=== PATIENT | male | born 1955 | race Hispanic/Latino ===

== ENCOUNTER 2019-12-03 10:43 | Emergency (ER) | payer OTHER ==
--- OUTSIDE RECORDS SUMMARY | 2019-12-03 10:46 | XMS REPORT ---
:1955 Author Organization [facility] Address [address] [place] [address] [address] [place] [address] Care Team Providers Name Role Phone Unavailable Unavailable Unavailable Problems This patient has no known problems. Allergies, Adverse Reactions, Alerts This patient has no known allergies or adverse reactions. Medications This patient has no known medications.
--- OUTSIDE RECORDS SUMMARY | 2019-12-03 10:46 | XMS REPORT ---
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
--- OUTSIDE RECORDS SUMMARY | 2019-12-03 10:46 | XMS REPORT | Summary of Care ---
:1955 Author Organization [facility] - Health Address [address] [place] [address] Care Team Providers Name Role Phone Estephania Low MD Primary Care Provider Encounter Details Date Type Department Care Team Description 10/21/2019 Orders Only [facility] Doctor Unassigned, No [address] [facility] [place] [address] [address] [place] [address] Allergies Active Allergy Reactions Severity Noted Date Comments Shrimp Hives 01/27/2017 documented as of this encounter (statuses as of 10/21/2019) Medications Medication Sig Dispensed Refills Start Date End Date Status ondansetron (ZOFRAN) 8 Take 1 tablet by 20 tablet 0 11/04/2018 Active mg tabletIndications: mouth every 8 Abdominal pain, RUQ (eight) hours as needed for Nausea and Vomiting (N/V). dicyclomine (BENTYL) Take 1 tablet by 20 tablet 0 11/04/2018 Active 20 mg mouth 4 (four) tabletIndications: times daily. Abdominal pain, RUQ enalapril 10 mg Take 1 tablet by 30 tablet 2 11/05/2018 Active tabletIndications: mouth daily. Routine adult health maintenance esomeprazole (NEXIUM) Take 20 mg by 30 capsule 0 11/05/2018 Active 20 mg mouth daily capsuleIndications: before a meal. Abdominal pain, RUQ omeprazole 20 mg Take 1 capsule by 28 capsule 0 11/25/2018 Active capsuleIndications: H. mouth 2 (two) pylori infection times daily. metroNIDAZOLE 500 mg Take 1 tablet by 28 tablet 0 11/25/2018 Active tabletIndications: H. mouth every 8 pylori infection (eight) hours. amoxicillin 500 mg Take 2 capsules 56 capsule 0 11/25/2018 Active capsuleIndications: H. by mouth 2 (two) pylori infection times daily. tamsulosin 0.4 mg 24 Take 1 capsule by 30 capsule 5 11/25/2018 Active hr capsuleIndications: mouth daily. H. pylori infection documented as of this encounter (statuses as of 10/21/2019) Active Problems Problem Noted Date H. pylori infection 11/25/2018 Abdominal pain 11/04/2018 Essential hypertension 02/13/2017 documented as of this encounter (statuses as of 10/21/2019) Resolved Problems Problem Noted Date Resolved Date Acute cholecystitis 01/27/2017 02/13/2017 documented as of this encounter (statuses as of 10/21/2019) Social History Tobacco Use Types Packs/Day Years Used Date Current Every Day Smoker Smokeless Tobacco: Never Used Alcohol Use Drinks/Week oz/Week Comments No Sex Assigned at Date Recorded Not on file Job Start Date Occupation Industry Not on file Not on file Not on file Travel History Travel Start Travel End No recent travel history available. documented as of this encounter Last Filed Vital Signs Not on filedocumented in this encounter Plan of Treatment Health Maintenance Due Date Last Done Comments HEPATITIS C (HCV) SCREEN 1955 DTaP,Tdap,and Td Vaccines (1 - Tdap) 1972 COLONOSCOPY 2003 Zoster Recombinant Vaccine (SHINGRIX) (1 of 2) 2003 LUNG CANCER SCREEN: Recommended for age 55-80 with 30 + 2008 pack year history Medicare Wellness Visit 2018 PNEUMOCOCCAL VACCINES 65+ (1 of 2 - PCV13) 2018 INFLUENZA VACCINE (#1) 2019 documented as of this encounter Goals Goal Patient Goal Associated Recent Patient-Stated? 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 [place] [id number] [place] [id number] documented as of this encounter
--- OUTSIDE RECORDS SUMMARY | 2019-12-03 10:46 | XMS REPORT | Summary of Care ---
:1955 Author Organization [facility] - Health Address [address] [place] [id number] Care Team Providers Name Role Phone Estephania Low MD Primary Care Provider Encounter Details Date Type Department Care Team Description 10/23/2019 Orders Only [facility] Doctor Unassigned, No [address] [facility] Name [place] [phone] [place] [address] Allergies Active Allergy Reactions Severity Noted Date Comments Morphine Hives 10/21/2019 Shrimp Hives 01/27/2017 documented as of this encounter (statuses as of 10/23/2019) Medications Medication Sig Dispensed Refills Start Date [...] as of this encounter (statuses as of 10/23/2019) Active Problems Problem Noted Date H. pylori infection 11/25/2018 Abdominal pain 11/04/2018 Essential hypertension 02/13/2017 documented as of this encounter (statuses as of 10/23/2019) Resolved Problems Problem Noted Date Resolved Date Acute cholecystitis 01/27/2017 02/13/2017 documented as of this encounter (statuses as of 10/23/2019) Social History Tobacco Use Types Packs/Day Years [...] filedocumented in this encounter Plan of Treatment Date Type Specialty Care Team Description 10/23/2019 Office Visit Family Medicine Antonio Bustamante MD [address] [place] [address] [address] [place], [place] [id number] Health Maintenance Due Date Last Done Comments HEPATITIS C (HCV) SCREEN 1955 DTaP,Tdap,and Td Vaccines (1 - Tdap) 1964 COLONOSCOPY 2003 Zoster Recombinant Vaccine (SHINGRIX) (1 [...] Procedure Name Priority Date/Time Associated Diagnosis Comments NO SHOW OR MISSED Routine 10/23/2019 2:13 PM 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 Medicare A [employer] nt [id number] [place] [id number] documented as of this encounter
--- OUTSIDE RECORDS SUMMARY | 2019-12-03 10:46 | XMS REPORT ---
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
--- OUTSIDE RECORDS SUMMARY | 2019-12-03 10:46 | XMS REPORT | Summary of Care ---
:1955 Author Organization [facility] - [facility] Address [address] [place] [address] Care Team Providers Name Role Phone Estephania Low MD Primary Care Provider Reason for Referral MRI/CAT Scan (STAT) Status Reason Specialty Diagnoses / Referred By Referred To Procedures Contact Contact New Request Diagnostic Diagnoses Abdominal pain, unspecified abdominal location Jaswinder Echevarria, Radiology Procedures CT ABDOMEN PELVIS W CONTRAST CT ABDOMEN PELVIS W WO CONTRAST [address] [place] [address] [place] [id number] Reason for Visit Reason Comments Abdominal Pain Auth/Cert Status Reason Specialty Diagnoses / Referred By Referred To Procedures Contact Contact [facility] [address] [place] [address] [place] [address] Encounter Details Date Type Department Care Team Description 10/21/2019 Emergency [facility] Jaswinder Echevarria MD Abdominal pain, unspecified abdominal location (Primary Dx); Department [address] [place] [address] Mesenteric ischemia [address] [place] [address] [address] [place] [address] [place], [place] [id number] Allergies Active Allergy Reactions Severity Noted Date [...] of this encounter Last Filed Vital Signs Vital Sign Reading Time Taken Comments Blood Pressure 161/94 10/21/2019 10:27 AM FEEDER DRIVER Pulse 57 10/21/2019 10:27 AM FEEDER DRIVER Temperature 36.8 C (98.2 F) 10/21/2019 8:06 AM FEEDER DRIVER Respiratory Rate 15 10/21/2019 10:27 AM FEEDER DRIVER Oxygen Saturation 99% 10/21/2019 10:27 AM FEEDER DRIVER Inhaled Oxygen Concentration - - Weight 63.5 kg (140 lb) 10/21/2019 8:06 AM FEEDER DRIVER Height 157.5 cm (5' 2") 10/21/2019 8:06 AM FEEDER DRIVER Body Mass Index 25.61 10/21/2019 8:06 AM FEEDER DRIVER documented in this encounter Plan of Treatment Health [...] encounter Procedures Procedure Name Priority Date/Time Associated Comments Diagnosis CT ABDOMEN PELVIS W STAT 10/21/2019 9:18 Abdominal pain, Results for this CONTRAST AM FEEDER DRIVER unspecified procedure are in abdominal location the results section. ACTIVATED PARTIAL STAT 10/21/2019 8:43 Abdominal pain, Results for this THRMPLAS SABINA AM FEEDER DRIVER unspecified procedure are in abdominal location the results section. PROTHROMBIN TIME / STAT 10/21/2019 8:43 Abdominal pain, Results for this INR AM FEEDER DRIVER unspecified procedure are in abdominal location the results section. EKG-12 LEAD Routine 10/21/2019 8:32 AM FEEDER DRIVER CBC WITH STAT 10/21/2019 8:21 Abdominal pain, Results for this DIFFERENTIAL AM FEEDER DRIVER unspecified procedure are in abdominal location the results section. N-TERMINAL PRO-BNP STAT Add-On 10/21/2019 8:21 Abdominal pain, Results for this AM FEEDER DRIVER unspecified procedure are in abdominal location the results section. URINALYSIS STAT 10/21/2019 8:21 Abdominal pain, Results for this AM FEEDER DRIVER unspecified procedure are in abdominal location the results section. CBC WITH Routine 10/21/2019 8:21 Abdominal pain, Results for this DIFFERENTIAL AM FEEDER DRIVER unspecified procedure are in abdominal location the results section. COMP. METABOLIC STAT 10/21/2019 8:21 Abdominal pain, Results for this PANEL (13238) AM FEEDER DRIVER unspecified procedure are in abdominal location the results section. TROPONIN I STAT Add-On 10/21/2019 8:21 Abdominal pain, Results for this AM FEEDER DRIVER unspecified procedure are in abdominal location the results section. LIPASE STAT 10/21/2019 8:21 Abdominal pain, Results for this AM FEEDER DRIVER unspecified procedure are in abdominal location the results section. NOTICE OF PRIVACY Routine 10/21/2019 7:51 PRACTICES AM FEEDER DRIVER documented in this encounter Results CT ABDOMEN PELVIS W CONTRAST (10/21/2019 9:18 AM FEEDER DRIVER) Specimen Narrative Performed At CT Abdomen and Pelvis with intravenous contrast. PACS/VR/DOSE CLINICAL HISTORY: Abdominal infection, including peritonitis. DOSE: Up-to-date CT equipment and radiation dose reduction techniques were employed. CTDIvol: 4.14 mGy. DLP: 195 mGy-cm. TECHNIQUE : Contiguous axial imaging from the level of the lung bases through the pubic symphysis were performed after the uncomplicated administration of Omnipaque contrast material. Coronal and sagittal reconstructions were obtained. Auto mA and/or iterative reconstruction were used to reduce radiation dose. FINDINGS: Comparison is made with previous CT scan of 11/04/2018. Lower lungs: Chronic bibasilar pleural thickening and minimal dependent lung atelectatic changes. Possible small sliding-type hiatal hernia noted. Liver, Gallbladder and Spleen: Liver is 17.6 cm in length and showed known 2 cystic lesions, and one in the left lobe and one in the right lobe, unchanged. Cholecystectomy noted. Spleen measures approximately 11.5 x 5.8 cm and adjacent to the anterior edge of the spleen, there is an accessory 13 mm splenule. Mild generalized dilatation of the extrahepatic biliary ducts noted along with a long cystic duct remnant. Common hepatic duct is 8 to 9 mm in diameter. There is minimal dilatation of the main pancreatic duct. Peritoneum: No free air or free fluid. No lymphadenopathy. Pancreas and Adrenals: A tiny 5 mm cystic lesion is seen in the anterior surface of the proximal body region of the pancreas, very faintly visualized in retrospect in the previous study, unchanged. No enhancing lesions in the pancreas. Normal adrenal glands. Kidneys and Ureters: No visible calculi in the renal collecting systems. No hydroureter or hydronephrosis. Vessels: Atherosclerosis. No abdominal aortic aneurysm. Long stricture is seen in the proximal SMA, with estimated severity of the percent, unchanged. Retroperitoneum: No abnormal fluid or lymphadenopathy. Bowel: No acute findings. Normal appendix is visualized. Bladder and Reproductive Organs: No gross pathology in the unopacified urinary bladder except for mild thickening of the bladder zavala which could be due to combination of incomplete luminal distention and moderately enlarged prostate gland. Bones: No aggressive bone lesions. No compression deformity in the lumbar vertebral bodies. No signs of AVN in the femoral heads. Soft tissues: Small direct type fat containing bilateral inguinal hernia suspected. CONCLUSION: 1. No acute intra-abdominal or pelvic abnormalities detected. 2. S/P cholecystectomy. 3. Moderate atherosclerosis of the aorta and iliac arteries with approximately 50% stricture of the lower abdominal aorta just above the bifurcation, long 50-60% stricture in the proximal SMA, unchanged when compared with October 2018 study. 4. Cystic lesions, one in the left lobe and one in the right lobe of the liver, unchanged. Procedure Note [facility], Radiant Results Inft User - 10/21/2019 9:[address] Abdomen and Pelvis with intravenous contrast. CLINICAL HISTORY: Abdominal infection, including peritonitis. DOSE: Up-to-date CT equipment and radiation dose reduction techniques were employed. CTDIvol: 4.14 mGy. DLP: 195 mGy-cm. TECHNIQUE : Contiguous axial imaging from the level of the lung bases through the pubic symphysis were performed after the uncomplicated administration of Omnipaque contrast material. Coronal and sagittal reconstructions were obtained. Auto mA and/or iterative reconstruction were used to reduce radiation dose. FINDINGS: Comparison is made with previous CT scan of 11/04/2018. Lower lungs: Chronic bibasilar pleural thickening and minimal dependent lung atelectatic changes. Possible small sliding-type hiatal hernia noted. Liver, Gallbladder and Spleen: Liver is 17.6 cm in length and showed known 2 cystic lesions, and one in the left lobe and one in the right lobe, unchanged. Cholecystectomy noted. Spleen measures approximately 11.5 x 5.8 cm and adjacent to the anterior edge of the spleen, there is an accessory 13 mm splenule. Mild generalized dilatation of the extrahepatic biliary ducts noted along with a long cystic duct remnant. Common hepatic duct is 8 to 9 mm in diameter. There is minimal dilatation of the main pancreatic duct. Peritoneum: No free air or free fluid. No lymphadenopathy. Pancreas and Adrenals: A tiny 5 mm cystic lesion is seen in the anterior surface of the proximal body region of the pancreas, very faintly visualized in retrospect in the previous study, unchanged. No enhancing lesions in the pancreas. Normal adrenal glands. Kidneys and Ureters: No visible calculi in the renal collecting systems. No hydroureter or hydronephrosis. Vessels: Atherosclerosis. No abdominal aortic aneurysm. Long stricture is seen in the proximal SMA, with estimated severity of the percent, unchanged. Retroperitoneum: No abnormal fluid or lymphadenopathy. Bowel: No acute findings. Normal appendix is visualized. Bladder and Reproductive Organs: No gross pathology in the unopacified urinary bladder except for mild thickening of the bladder zavala which could be due to combination of incomplete luminal distention and moderately enlarged prostate gland. Bones: No aggressive bone lesions. No compression deformity in the lumbar vertebral bodies. No signs of AVN in the femoral heads. Soft tissues: Small direct type fat containing bilateral inguinal hernia suspected. CONCLUSION: 1. No acute intra-abdominal or pelvic abnormalities detected. 2. S/P cholecystectomy. 3. Moderate atherosclerosis of the aorta and iliac arteries with approximately 50% stricture of the lower abdominal aorta just above the bifurcation, long 50-60% stricture in the proximal SMA, unchanged when compared with October 2018 study. 4. Cystic lesions, one in the left lobe and one in the right lobe of the liver, unchanged. Performing Organization Address [facility]/Zipcode Phone Number PACS/VR/DOSE Prothrombin Time (PT) / INR (10/21/2019 8:43 AM FEEDER DRIVER) PROTIME PATIENT 13.6 12.0 - 14.7 [facility] LABORATORY INR 1.1Comment: Normal [facility] INR <1.1; Warfarin HOSPITAL Therapeutic range LABORATORY 2.0 to 3.0 or 2.5 to 3.5, depending upon the indications. Specimen Blood - VENOUS Performing Organization Address [facility]/Zipcode Phone Number [facility] CLIA: [id number], [address] [place] [address] aPTT (10/21/2019 8:43 AM FEEDER DRIVER) APTT Patient 30 23 - 38 Seconds [facility] LABORATORY Specimen Blood - VENOUS Narrative Performed At The [facility] patient population mean normal value [facility] LABORATORY for aPTT is 30 seconds. Performing Organization Address City/[facility] Phone Number [facility] CLIA: [id number], [address] [place] [address] N-TERMINAL PRO-BNP (10/21/2019 8:21 AM FEEDER DRIVER) NT-proBNP 52 <=125 pg/mL [facility] LABORATORY Specimen Blood - VENOUS Narrative Performed At Biotin has been reported to cause a negative [facility] LABORATORY bias, interpret results relative to patient's use of biotin. Performing Organization Address [facility] Phone Number [facility] CLIA: [id number], [address] [place] [address] Troponin I (10/21/2019 8:21 AM FEEDER DRIVER) [facility] TROPONIN I <0.012 <=0.034 ng/mL [facility] LABORATORY Specimen Blood - VENOUS Narrative Performed At Equal or Less than 0.034 ng/ml---Normal [facility] LAB[facility] Note: Cardiac troponin begins to rise 3-4 hours after the onset of ischemia. Repeat in 4-6 hours if the sample was drawn within 3-4 hours of the onset of the symptom and found normal. Between 0.035 and 0.120 ng/mL--- Borderline. Questionable myocardial injury or necrosis Note: Serial measurement may be necessary to confirm or exclude the diagnosis of myocardial injury or necrosis; Clinical correlation (symptoms, EKGs, imaging studies, and others) required; Repeat in 4-6 hours if clinically indicated. Equal or Higher than 0.121 ng/mL---Abnormal. Myocardial Injury or Necrosis Likely Biotin has been reported to cause a negative bias, interpret results relative to patient's use of biotin. Performing Organization Address [facility] Centercode Phone Number [facility] CLIA: [id number], [address] [place] [address] CBC WITH DIFFERENTIAL (10/21/2019 8:21 AM FEEDER DRIVER) WBC 7.04 4.20 - 10.70 [facility] 10*3/L [facility] LABORATORY RBC 5.27 4.26 - 5.52 [facility] 10*6/L HOSPITAL LABORATORY HGB 15.7 12.2 - 16.4 g/dL [facility] LABORAT[facility] HCT 47.6 38.4 - 49.3 % [facility] LABOR[facility] MCV 90.3 81.7 - 95.6 fL [facility] LABORATORY MCH 29.8 26.1 - 32.7 pg [facility] LAB[facility]ORY MCHC 33.0 31.2 - 35.0 g/dL [facility] LABORATORY RDW-SD 42.3 38.5 - 51.6 fL [facility] LABOR[facility] RDW-CV 12.9 12.1 - 15.4 % [facility] LABOR[facility] PLT 221 150 - 328 [facility] 10*3/L [facility] LABORATORY MPV 10.3 9.8 - 13.0 fL [facility] LABOR[facility] NRBC/100 WBC 0.0 0.0 - 10.0 /100 [facility] WBCs [facility] LABORATORY NRBC x10^3 <0.01 10*3/L [facility] LABORATORY GRAN MAT (NEUT) % 69.2 % [facility] LAB[facility] IMM GRAN % 0.30 % [facility] LAB[facility] LYMPH % 17.0 % [facility] MONO % 7.1 % [facility] EOS % 5.5 % [facility] BASO % 0.9 % [facility] LABOR[facility] GRAN MAT x10^3(ANC) 4.87 1.99 - 6.95 [facility] 10*3/uL [facility] LABORATORY IMM GRAN x10^3 <0.03 0.00 - 0.06 [facility] 10*3/uL HOSPITAL LABORATORY LYMPH x10^3 1.20 1.09 - 3.23 [facility] 10*3/uL HOSPITAL LABORATORY MONO x10^3 0.50 0.36 - 1.02 [facility] 10*3/uL HOSPITAL LABORATORY EOS x10^3 0.39 0.06 - 0.53 [facility] 10*3/uL HOSPITAL LABORATORY BASO x10^3 0.06 0.01 - 0.09 [facility] 10*3/uL [facility] LABORATORY Specimen Blood - VENOUS Performing Organization Address City/State/Zipcode Phone Number [facility] CLIA: [id number], [address] [place] [address] Urinalysis (10/21/2019 8:21 AM FEEDER DRIVER) APPEARANCE Clear Clear [facility] LABORAT[facility] COLOR Yellow Yellow [facility] PH 6.0 4.8 - 8.0 [facility] SP GRAVITY 1.020 1.003 - 1.030 [facility] LAB[facility] GLU U QUAL Normal Normal [facility] BLOOD Negative Negative [facility] KETONES Negative Negative [facility] PROTEIN Negative Negative [facility] UROBILIN Normal Normal [facility] BILIRUBIN Negative Negative [facility] NITRITE Negative Negative [facility] LEUK RIMA Negative Negative [facility] RBC/HPF 3 0 - 3 HPF [facility] WBC/HPF 3 0 - 5 HPF [facility] BACTERIA Negative Negative [facility] MUCOUS Slight (A) Negative LPF [facility] LABOR[facility] Specimen Urine - URINE, CLEAN CATCH Performing Organization Address City/[facility]/Zipcode Phone Number [facility] CLIA: [id number], [address] [place] [address] [address] Lipase, Serum (10/21/2019 8:21 AM FEEDER DRIVER) LIPASE 491 (H) 0 - 220 U/L [facility] LABORATORY Specimen Blood - VENOUS Performing Organization Address City/[facility]/Zipcode Phone Number [facility] CLIA: [id number], [address] [place] [address] Complete Metabolic Panel (10/21/2019 8:21 AM FEEDER DRIVER) NA 141 135 - 145 mmol/L [facility] K 3.9 3.5 - 5.0 mmol/L [facility] CL 106 98 - 108 mmol/L [facility] CO2 TOTAL 28 23 - 31 mmol/L [facility] AGAP 7 2 - 16 [facility] BUN 19 7 - 23 mg/dL [facility] GLUCOSE 98 70 - 110 mg/dL [facility] CREATININE 0.83 0.60 - 1.25 [facility] mg/dL [facility] LAB[facility] TOTAL BILI 0.7 0.1 - 1.1 mg/dL [facility] CALCIUM 9.1 8.6 - 10.6 mg/dL [facility] T PROTEIN 6.9 6.3 - 8.2 g/dL [facility] ALBUMIN 4.3 3.5 - 5.0 g/dL [facility] ALK PHOS 67 34 - 122 U/L [facility] ALTv 21 5 - 50 U/L [facility] AST(SGOT) 26 13 - 40 U/L [facility] LAB[facility] eGFR Calculation 92.7 mL/min/1.73m2 [facility] (Non-[facility]) [facility] LABOR[facility] eGFR Calculation 112.3 mL/min/1.73m2 [facility] () [facility] LABOR[facility] Specimen Blood - VENOUS Narrative Performed At Association of Glomerular Filtration Rate (GFR) [facility] LAB[facility] and Staging of Kidney Disease* + + +- + | GFR (mL/min/1.73 m2) | With Kidney Damage | Without Kidney Damage + + +- + | >90 | Stage one | Normal + + +- + | 60-89 | Stage two | Decreased GFR + + +- + | 30-59 | Stage three | Stage three + + +- + | 15-29 | Stage four | Stage four + + +- + | <15 (or dialysis) | Stage five | Stage five + + +- + *Each stage assumes the associated GFR level has been in effect for at least three months. Stages 1 to 5, with or without kidney disease, indicate chronic kidney disease. Notes: Determination of stages one and two (with eGFR >59mL/min/1.73 m2) requires estimation of kidney damage for at least three months as defined by structural or functional abnormalities of the kidney, manifested by either: Pathological abnormalities or Markers of kidney damage (including abnormalities in the composition of the blood or urine or abnormalities in imaging tests). Performing Organization Address City/State/Zipcode Phone Number [facility] CLIA: [id number], [address] [place] [address] documented in this encounter Visit Diagnoses Diagnosis Abdominal pain, unspecified abdominal location - Primary Mesenteric ischemia Unspecified vascular insufficiency of intestine documented in this encounter Administered Medications Medication Order MAR Action Action Date Dose Rate Site FENTanyl PF (SUBLIMAZE (PF)) Given 10/21/2019 10:48 AM FEEDER DRIVER 75 mcg injection 75 mcg 75 mcg, Slow IV Push, ONCE, 1 dose, 10/21/19 at 1145, STAT iohexol (OMNIPAQUE 350 BULK-150 mL) Given 10/21/2019 9:15 AM FEEDER DRIVER 120 mL injection 120 mL 120 mL, Intravenous, ONCE, 1 dose, Sat10/21/19 at 0930, Routine ketorolac (TORADOL) injection 15 mg Given 10/21/2019 8:47 AM FEEDER DRIVER 15 mg 15 mg, Slow IV Push, ONCE, 1 dose, Sat10/21/19 at 0945, ROSELIA, [employer] member other ranks approving Restricted medication: JASWINDER ECHEVARRIA ondansetron (ZOFRAN (PF)) injection 4 mg Given 10/21/2019 8:47 AM FEEDER DRIVER 4 mg 4 mg, Slow IV Push, ONCE, 1 dose, Sat10/21/19 at 0945, ROSELIA ondansetron (ZOFRAN (PF)) injection 4 mg Given 10/21/2019 10:49 AM FEEDER DRIVER 4 mg 4 mg, Slow IV Push, ONCE, 1 dose, Sat10/21/19 at 1145, ROSELIA documented in this encounter Insurance Payer Benefit Plan / Subscriber ID Effective Dates Phone Address Type Group MEDICARE MEDICARE PART xxxxxxxxxxx 2018-Vahid [phone] [facility] Medicare A & B [id number] [place] [id number] (Work) documented as of this encounter
--- OUTSIDE RECORDS SUMMARY | 2019-12-03 10:46 | XMS REPORT ---
:1955 Author Organization [employer] Care Team Providers Name Role Phone Kirill Liriano Provider Role Unavailable Allergies, Adverse Reactions, Alerts Substance Reaction Event Type N.K.D.A. 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 Medications Medication Code Code Instructions Start End Status Dosage System Date Date Montelukast [facility] 27157724814 10 MG Orally Jun 26, Active 1 tablet Sodium Once a day 2018 Azelastine HCl [facility] [id number] 137 MCG/SPRAY Jun 26, Active 1 puff in Nasally Twice a 2018 each day nostril Celexa [facility] 95706166924 20 MG Orally Active 1 tablet Once a day Amoxicillin-Pot [facility] [id number] 875-125 MG Oct 02, Oct 12, Active 1 tablet Clavulanate Orally every 12 2019 2019 hrs Omeprazole [facility] 49314115632 10 MG Orally Active 1 capsule Once a day Oseltamivir [facility] 38237834562 75 MG Orally Oct 02, Active 1 capsule Phosphate Twice a day 2019 Results Name Result Date Reference Range Unit Abnormality Flag STREP A RAPID ----Result Negative 20191002 FLU TEST A/B ----B NEG 20191002 ----A neg 20191002 Summary Purpose [employer]Clinical[employer] Submission
--- OUTSIDE RECORDS SUMMARY | 2019-12-03 10:47 | XMS REPORT | Summary of Care ---
:1955 Author Organization [facility] - [facility] Address [address] [place] [address] Care Team Providers Name Role Phone Estephania Low MD Primary Care Provider Reason for Visit Reason Comments New Patient HERNIA (Routine) Status Reason Specialty Diagnoses / Referred By Referred To Procedures Contact Contact Authorized Referring BJ-SURGERY / Diagnoses Right upper quadrant abdominal pain Right lower quadrant pain Right inguinal hernia Ravi Bustamante, Provider Surgery Procedures CONSULT/REFERRAL GENERAL SURGERY MD Amrita Alvarez MD Request [address] [address] [address] [address] Phone: Fax: Encounter Details Date Type Department Care Team Description 10/27/2019 Office Visit [facility] Surgical Amrita Rodrigues, Esophagitis (Primary Specialties - Elda OROSCO Dx) [facility], [address] [place] [address] [place] [address] [address] [place] [address] [phone] Allergies Active Allergy Reactions Severity Noted Date Comments Morphine Hives 10/21/2019 Shrimp Hives 01/27/2017 documented as of this encounter (statuses as of 10/27/2019) Medications Medication Sig Dispensed Refills Start Date [...] hr capsuleIndications: mouth daily. H. pylori infection cilostazoL 50 mg Take 1 tablet by 60 tablet 2 10/23/2019 Active tabletIndications: mouth 2 (two) Vascular claudication times daily. docusate 100 mg Take 1 capsule by 60 capsule 2 10/23/2019 Active capsuleIndications: mouth 2 (two) Constipation, times daily as unspecified needed for constipation type Constipation. sennosides 8.6 mg Take 1 tablet by 30 tablet 2 10/23/2019 Active tabletIndications: mouth daily. Constipation, unspecified constipation type meperidine 50 mg Take 1 tablet by 60 tablet 0 10/23/2019 Active tabletIndications: mouth every 6 Right upper quadrant (six) hours as abdominal pain, Right needed for Pain lower quadrant pain, (scale 7-10) Right inguinal hernia (Abdominal Pain). atorvastatin 10 mg Take 1 tablet by 30 tablet 2 10/23/2019 Active tabletIndications: mouth at bedtime. Vascular claudication pantoprazole 40 mg EC Take 1 tablet by 30 tablet 0 10/27/2019 Active tabletIndications: mouth daily. Esophagitis documented as of this encounter (statuses as of 10/27/2019) Active Problems Problem Noted Date H. pylori infection 11/25/2018 Abdominal pain 11/04/2018 Essential hypertension 02/13/2017 documented as of this encounter (statuses as of 10/27/2019) Resolved Problems Problem Noted Date Resolved Date Acute cholecystitis 01/27/2017 02/13/2017 documented as of this encounter (statuses as of 10/27/2019) Social History Tobacco Use Types Packs/Day Years [...] Sign Reading Time Taken Comments Blood Pressure 130/82 10/27/2019 3:19 PM CROP QUANTITATIVE GENETICIST Pulse 72 10/27/2019 3:19 PM CROP QUANTITATIVE GENETICIST Temperature 35.9 C (96.7 F) 10/27/2019 3:19 PM CROP QUANTITATIVE GENETICIST Respiratory Rate 18 10/27/2019 3:19 PM CROP QUANTITATIVE GENETICIST Oxygen Saturation - - Inhaled Oxygen Concentration - - Weight 66.6 kg (146 lb 12.8 oz) 10/27/2019 3:19 PM CROP QUANTITATIVE GENETICIST Height - - Body Mass Index 26.85 10/21/2019 8:06 AM CROP QUANTITATIVE GENETICIST documented in this encounter Progress Notes Roc Camarillo MD - 10/27/2019 3:15 PM CST GENERAL SURGERY CLINIC NOTE Date of Service: 10/27/2019 HPI The patient is a 64 year-old male who presents with complaints of right sided abdominal pain. Recently transferred to [place] after presentation to ED with same symptoms. Reports that there was concern for occlusion of abdominal vasculature, and accepted by vascular surgery in [place]. Reports that his pain comes in short waves of 10-15 minutes, sharp in nature, and associated with some burning and tingling. Reports it is worse with movement and sometimes after lying on his right side at night. He does report occasional nausea, and has had intermittent episodes of diarrhea periodically butnot on regular basis. Denies change in appetite. Also reports that he was previously prescribed PPI for his gastritis/esophagitis, but has not been taking it because the pharmacy was out. CURRENT HOSPITAL MEDICATIONS Current Outpatient Medications Medication Sig Dispense Refill atorvastatin 10 mg tablet Take 1 tablet by mouth at bedtime. 30 tablet 2 cilostazoL 50 mg tablet Take 1 tablet by mouth 2 (two) times daily. 60 tablet 2 docusate 100 mg capsule Take 1 capsule by mouth 2 (two) times daily as needed for Constipation. 60 capsule 2 meperidine 50 mg tablet Take 1 tablet by mouth every 6 (six) hours as needed for Pain (scale 7-10) (Abdominal Pain). 60 tablet 0 sennosides 8.6 mg tablet Take 1 tablet by mouth daily. 30 tablet 2 amoxicillin 500 mg capsule Take 2 capsules by mouth 2 (two) times daily. 56 capsule 0 metroNIDAZOLE 500 mg tablet Take 1 tablet by mouth every 8 (eight) hours. 28 tablet 0 omeprazole 20 mg capsule Take 1 capsule by mouth 2 (two) times daily. 28 capsule 0 tamsulosin 0.4 mg 24 hr capsule Take 1 capsule by mouth daily. 30 capsule 5 enalapril 10 mg tablet Take 1 tablet by mouth daily. 30 tablet 2 esomeprazole (NEXIUM) 20 mg capsule Take 20 mg by mouth daily before a meal. 30 capsule 0 dicyclomine (BENTYL) 20 mg tablet Take 1 tablet by mouth 4 (four) times daily. 20 tablet 0 ondansetron (ZOFRAN) 8 mg tablet Take 1 tablet by mouth every 8 (eight) hours as needed for Nausea and Vomiting (N/V). 20 tablet 0 No current facility-administered medications for this visit. REVIEW OF SYSTEMS Constitutional: See HPI Eyes: negative Ears: negative Nose/Sinuses: negative Mouth/Throat: negative Cardiovascular: negative Respiratory: negative Gastrointestinal: HPI Genitourinary: negative Musculoskeletal: negative Integumentary: negative Neuro: negative HISTORIES Past Medical History: Diagnosis Date Essential hypertension, benign Past Surgical History: Procedure Laterality Date ESOPHAGOGASTRODUODENOSCOPY N/A 01/28/2017 Surgeon: Storm Michelle MD; Location: [facility] OR [facility] ESOPHAGOGASTRODUODENOSCOPY N/A 11/05/2018 Surgeon: Storm Michelle MD; Location: [facility] OR Location INGUINAL HERNIORRHAPHY Left LAPAROSCOPIC CHOLECYSTECTOMY N/A 01/31/2017 Surgeon: Gabo Warner MD; Location: [facility] OR [facility] [place] ARTHRODESIS PRESACRAL INTRBDY W/INSTRUMENT L4/L5 MI EGD TRANSORAL BIOPSY SINGLE/MULTIPLE 01/28/2017 MI LAP,CHOLECYSTECTOMY/GRAPH 02/02/2017 Family History Problem Relation Age of Onset Lung Cancer Father smoking Social History Socioeconomic History Marital status: Single Spouse name: Not on file Number of children: Not on file Years of education: Not on file Highest education level: Not on file Occupational History Not on file Social Needs Financial resource strain: Not on file Food insecurity: Worry: Not on file Inability: Not on file Transportation needs: Medical: Not on file Non-medical: Not on file Tobacco Use Smoking status: Current Every Day Smoker Smokeless tobacco: Never Used Substance and Sexual Activity Alcohol use: No Drug use: No Sexual activity: Not on file Lifestyle Physical activity: Days per week: Not on file Minutes per session: Not on file Stress: Not on file Relationships Social connections: Talks on phone: Not on file Gets together: Not on file Attends yazidism service: Not on file Active member of club or organization: Not on file Attends meetings of clubs or organizations: Not on file Relationship status: Not on file Intimate partner violence: Fear of current or ex partner: Not on file Emotionally abused: Not on file Physically abused: Not on file Forced sexual activity: Not on file Other Topics Concern Not on file Social History Narrative Not on file PHYSICAL EXAM BP 130/82 (BP Location: Left arm, Patient Position: Sitting, BP CUFF SIZE: Adult Medium) | Pulse 72 | Temp 35.9 C (96.7 F) (Oral) | Resp 18 | Wt 66.6 kg (146 lb 12.8 oz) | BMI 26.85 kg/m General: alert and oriented in no apparent distress Head: normocephalic, atraumatic Eyes: extraocular movements intact; no scleral icterus ENT: no rhinorrhea, moist mucus membranes Neck: supple, trachea midline CV: hemodynamically stable Resp: unlabored, no increased work of breathing, equal bilateral chest rise Abd: soft, non-distended, well healed incisions from previous laparoscopic surgery. Mild tendernessto palpation on right side of abdomen. No rebound or guarding. Groin: inguinal hernia exam performed. No evidence of inguinal hernia on right or left side. Testicles normal with no masses palpated. Extremities/Musculoskeletal: moves extremities well, no edema or cyanosis Skin: skin color, texture, and turgor normal; no rashes or lesions LABORATORY CBC BMP PT/INR WBC (10*3/L) Date Value 10/21/2019 7.04 NA (mmol/L) Date Value 10/21/2019 141 No results found for: PT RBC (10*6/L) Date Value 10/21/2019 5.27 K (mmol/L) Date Value 10/21/2019 3.9 INR (no units) Date Value 10/21/2019 1.1 PLT (10*3/L) Date Value 10/21/2019 221 CALCIUM (mg/dL) Date Value 10/21/2019 9.1 HGB (g/dL) Date Value 10/21/2019 15.7 CL (mmol/L) Date Value 10/21/2019 106 aPTT HCT (%) Date Value 10/21/2019 47.6 BUN (mg/dL) Date Value 10/21/2019 19 APTT Patient (Seconds) Date Value 10/21/2019 30 CREATININE (mg/dL) Date Value 10/21/2019 0.83 GLUCOSE (mg/dL) Date Value 10/21/2019 98 CO2 TOTAL (mmol/L) Date Value 10/21/2019 28 RADIOLOGY No final results containing an impression from the past 30 days were found. ASSESSMENT The patient is a 64 year-old with right sided abdominal pain. Previous cholecystectomy. Per history, the pain sounds consistent with musculoskeletal pain, possibly with element of nerve -related pain. Counseled patient that he does not have evidence of hernia on exam, and that there were no acute findings on CT scan to explain an intra abdominal cause of his pain. Counseled the patient that due to previous findings on EGD, he should continue taking PPI as prescribed to prevent pain from gastritis/GERD. Will re-prescribe PPI today for patient. -pantoprazole daily -recommended patient consider patch for musculoskeletal pain such as lidoderm of other pain patch -recommend adherence to diet that will not exacerbate GERD symptoms. -Recommended that patient keep already scheduled appointment with Dr. Michelle Discussed patient with Dr. Rodrigues on 10/27/2019 Roc Camarillo MD General Surgery Cynthia Barry - 10/27/2019 3:15 PM CSTSirena Peters is a 64 year old male comes to clinic independent in ambulation for new patient hernia. Pt comes alone . Pt in NAD w/ pain reported 03/18. Pt preferred language is Maldivian. Pt. denies fall in last 12 months. Allergies and medications reviewed and updated. [facility] [address] [place] [address] - [address] [place] Cynthia Lucio 10/27/2019 3:20 PM documented in this encounter Plan of Treatment Date Type Specialty Care Team Description 11/11/2019 Office Visit Family Medicine Antonio Bustamante MD [address] [place] [address] Dr Truong [address] [place] [address] [phone] Health Maintenance Due Date Last Done Comments [...] smokeless, etc) documented as of this encounter Results Not on filedocumented in this encounter Visit Diagnoses Diagnosis Esophagitis - Primary Esophagitis, unspecified documented in this encounter Insurance Payer Benefit Plan / Subscriber ID Effective Dates Phone Address Type Group MEDICARE MEDICARE PART xxxxxxxxxxx 2018-Vahid [phone] Medicare A & B nt [id number] [place] FAN [id number] [phone] [id number] (Work) documented as of this encounter"
--- OUTSIDE RECORDS SUMMARY | 2019-12-03 10:47 | XMS REPORT | Summary of Care ---
:1955 Author Organization [facility] - [facility] Address [address] [place] [address] Care Team Providers Name Role Phone Estephania Low MD Primary Care Provider Reason for Visit Reason Comments Results Encounter Details Date Type Department Care Team Description 10/27/2019 Telephone [facility] Pediatric and Antonio Bustamante MD Results Adult Primary Care- [address] [place] [address] Dr Schroeder [facility] [address] [place] [address] , [place] [address] [address] [place] [id number] [phone] Allergies Active Allergy Reactions Severity Noted Date [...] Active tabletIndications: mouth at bedtime. Vascular claudication documented as of this encounter (statuses as [...] Treatment Date Type Specialty Care Team Description 10/27/2019 Office Visit Surgery Amrita Rodrigues MD [address] [facility] 2.100 [place] [address] [phone] 11/11/2019 Office Visit Family Medicine Antonio Bustamante MD [address] [place] [address] Dr Truong [address] [place] [address] [phone] Health Maintenance Due Date Last Done Comments [...] BOX Medicare A & B nt 2 [id number] [place] [id number] documented as of this encounter
--- OUTSIDE RECORDS SUMMARY | 2019-12-03 10:47 | XMS REPORT | Summary of Care ---
:[address] [facility] - [facility] Address [address] [place] [address] Care Team Providers Name Role Phone Estephania Low MD Primary Care Provider Reason for Referral Other (Routine) Status Reason Specialty Diagnoses / Referred By Contact Referred To Procedures Contact New Request Diagnoses Generalized abdominal pain Mariano Barriga MD [place], [place], Procedures Discharge Follow-up: Specialty Provider PAT RODRIGUES; [address] [place] [address]. [address] [place] [id number] [place] [address] Alexi 2.100 [place] [address] Reason for Visit Reason Comments Abdominal Pain Auth/Cert Status Reason Specialty Diagnoses / Referred By Referred To Procedures Contact Contact Emergency Medicine [facility] Dept [address] [place] [phone] Encounter Details Date Type Department Care Team Description 10/21/2019 Emergency [facility] Unknown, Attending Generalized abdominal Department Mary Nava MD [address] [place] [phone] pain (Primary Dx) [address] [place] [phone] Allergies Active Allergy Reactions Severity Noted Date [...] Sign Reading Time Taken Comments Blood Pressure 137/89 10/21/2019 4:34 PM OFFICE MANAGER EXECUTIVE ASSISTANT Pulse 76 10/21/2019 4:34 PM OFFICE MANAGER EXECUTIVE ASSISTANT Temperature 36.1 C (97 F) 10/21/2019 12:19 PM OFFICE MANAGER EXECUTIVE ASSISTANT Respiratory Rate 16 10/21/2019 4:34 PM OFFICE MANAGER EXECUTIVE ASSISTANT Oxygen Saturation 100% 10/21/2019 4:34 PM OFFICE MANAGER EXECUTIVE ASSISTANT Inhaled Oxygen Concentration - - Weight 63.5 kg (140 lb) 10/21/2019 12:19 PM OFFICE MANAGER EXECUTIVE ASSISTANT Height - - Body Mass Index 25.61 10/21/2019 8:06 AM OFFICE MANAGER EXECUTIVE ASSISTANT documented in this encounter Progress Notes Fauzia Coyle MD - 10/21/2019 3:49 PM CSTSurgery Chief Note 10/21/2019 Assessment/Plan: Sirena Peters is a 64 year old male with abdominal pain. Consulted via Vascular surgery for a possible right inguinal herni --Plan --No acute surgical intervention. No hernia on CT or PE --Referral placed for Dr. Rodrigues in [place] for EGD. Possible etiology of abdominal pain is an ulcer Please see full note by surgery team. Discussed with Dr. Barriga (surgery faculty) on 10/21/2019 Fauzia Coyle MD General Surgery, PGY-4 documented in this encounter Plan of Treatment [...] filedocumented in this encounter Visit Diagnoses Diagnosis Generalized abdominal pain - Primary Abdominal pain, generalized documented in this encounter Administered Medications Medication Order MAR Action Action Date Dose Rate Site acetaminophen (TYLENOL) tablet 500 mg 500 mg, Oral, Q6HPRN, Starting 10/21/19 at 1445, Until Discontinued, Routine , Pain (scale 4-6) ibuprofen (IBU) tablet 400 mg 400 mg, Oral, Q6HPRN, Starting Sat10/21/19 at 1445, Until Discontinued, Routine , Pain (scale 4-6) documented in this encounter Insurance Payer Benefit Plan / Subscriber ID Effective Dates Phone Address Type Group MEDICARE MEDICARE PART xxxxxxxxxxx 2018-Vahid [phone] Medicare A & B 2 [id number] [place] [id number] [phone] [id number] (Work) documented as of this encounter
--- OUTSIDE RECORDS SUMMARY | 2019-12-03 10:47 | XMS REPORT | Summary of Care ---
:1955 Author Organization [facility] - [facility] Address [address] [place] [address] Care Team Providers Name Role Phone Estephania Low MD Primary Care Provider Reason for Visit Reason Comments LAB Encounter Details Date Type Department Care Team Description 10/26/2019 Building Rental Manager Visit [facility] Estephania Low MD [address] [place] [address] Dr [address] [place] [address] Vascular Professional Office 2, Ad[facility] Lab claudication Building Phlebotomy Lab Professional Office Building [address] [place] [address] , [address] [place] [address] Allergies Active Allergy Reactions Severity Noted Date Comments Morphine Hives 10/21/2019 Shrimp Hives 01/27/2017 documented as of this encounter (statuses as of 10/26/2019) Medications Medication Sig Dispensed Refills Start Date [...] as of this encounter (statuses as of 10/26/2019) Active Problems Problem Noted Date H. pylori infection 11/25/2018 Abdominal pain 11/04/2018 Essential hypertension 02/13/2017 documented as of this encounter (statuses as of 10/26/2019) Resolved Problems Problem Noted Date Resolved Date Acute cholecystitis 01/27/2017 02/13/2017 documented as of this encounter (statuses as of 10/26/2019) Social History Tobacco Use Types Packs/Day Years [...] Visit Family Medicine Antonio Bustamante MD [address] [place] [address] [place] [address] [phone] Health Maintenance Due Date Last Done Comments [...] filedocumented in this encounter Visit Diagnoses Diagnosis Vascular claudication Peripheral vascular disease, unspecified documented in this encounter Insurance Payer Benefit Plan / Subscriber ID Effective Dates Phone Address Type Group MEDICARE MEDICARE PART xxxxxxxxxxx 2018-Vahid [phone] Medicare A & B nt [address] [id number] [place] [phone] (Home) [place], [place] [phone] (Work) documented as of this encounter
--- OUTSIDE RECORDS SUMMARY | 2019-12-03 10:48 | XMS REPORT | Summary of Care ---
:1955 Author Organization [facility] - [facility] Address [address] [place] [address] Care Team Providers Name Role Phone Estephania Low MD Primary Care Provider Reason for Visit Reason Comments New Patient HERNIA (Routine) Status Reason Specialty Diagnoses / Referred By Referred To Procedures Contact Contact Authorized Referring BJ-SURGERY / Diagnoses Right upper quadrant abdominal pain Right lower quadrant pain Right inguinal hernia Ravi Bustamante, Tara Surgery Procedures CONSULT/REFERRAL GENERAL SURGERY MD Amrita Alvarez MD Request [address] [place] [address] [address] [address] Phone: Fax: Encounter Details Date Type Department Care Team Description 10/27/2019 Office Visit [facility] Surgical Amrita Rodrigues, Right-sided abdominal Specialties - Elda OROSCO pain of unknown cause [address], [address] [place] [address] (Primary Dx) [address] [place], [place] Alexi [address] [phone] [phone] [id number] Allergies Active Allergy Reactions Severity Noted Date Comments Morphine Hives 10/21/2019 Shrimp Hives 01/27/2017 documented as of this encounter (statuses as of 11/04/2019) Medications Medication Sig Dispensed Refills Start Date [...] tablet by 30 tablet 0 10/27/2019 Active tablet mouth daily. documented as of this encounter (statuses as of 11/04/2019) Active Problems Problem Noted Date Right lower quadrant pain 11/02/2019 Right inguinal hernia 11/02/2019 Vascular claudication 11/02/2019 Constipation, unspecified constipation type 11/02/2019 Tobacco abuse 11/02/2019 H. pylori infection 11/25/2018 Abdominal pain 11/04/2018 Essential hypertension 02/13/2017 documented as of this encounter (statuses as of 11/04/2019) Resolved Problems Problem Noted Date Resolved Date Acute cholecystitis 01/27/2017 02/13/2017 documented as of this encounter (statuses as of 11/04/2019) Social History Tobacco Use Types Packs/Day Years [...] Comments Blood Pressure 130/82 10/27/2019 3:19 PM SENIOR STRATEGY MANAGER Pulse 72 10/27/2019 3:19 PM SENIOR STRATEGY MANAGER Temperature 35.9 C (96.7 F) 10/27/2019 3:19 PM SENIOR STRATEGY MANAGER Respiratory Rate 18 10/27/2019 3:19 PM SENIOR STRATEGY MANAGER Oxygen Saturation - - Inhaled Oxygen Concentration - - Weight 66.6 kg (146 lb 12.8 oz) 10/27/2019 3:19 PM SENIOR STRATEGY MANAGER Height - - Body Mass Index 26.85 10/21/2019 8:06 AM SENIOR STRATEGY MANAGER documented in this encounter Progress Notes Roc Camarillo MD - 10/27/2019 3:15 PM CST GENERAL SURGERY CLINIC NOTE Date of Service: 10/27/2019 HPI The patient is a 64 year-old male who presents with complaints of right sided abdominal pain. Recently transferred to [place] after presentation to ED with same symptoms. Reports that there was concern for occlusion of abdominal vasculature, and accepted by vascular surgery in [place]. Reports that his pain comes in short [...] N/A 01/28/2017 Surgeon: Storm Michelle MD; Location: [facility] OR [facility] ESOPHAGOGASTRODUODENOSCOPY N/A 11/05/2018 Surgeon: Storm Michelle MD; Location: [facility] OR [facility] INGUINAL HERNIORRHAPHY Left LAPAROSCOPIC CHOLECYSTECTOMY N/A 01/31/2017 Surgeon: Gabo Warner MD; Location: [facility] MD ARTHRODESIS PRESACRAL INTRBDY W/INSTRUMENT L4/L5 MD EGD TRANSORAL BIOPSY SINGLE/MULTIPLE 01/28/2017 MD LAP,CHOLECYSTECTOMY/GRAPH 02/02/2017 Family History Problem Relation Age [...] file Gets together: Not on file Attends catholic service: Not on file Active member of [...] on 10/27/2019 Roc Camarillo MD General Surgery Attending Attestation: I personally evaluated and examined the patient on 10/27/[address] Camarillo's note as written. I actively participated in the decision-making process. Please see the resident's note for additional details. Amrita Rodrigues M.D. 11/04/2019 16:03 4: 05 PM Cynthia Barry - 10/27/2019 3:15 PM Roxy Lorraine is a 64 year old male comes to clinic independent in ambulation for new patient hernia. Pt comes alone . Pt in NAD w/ pain reported 03/18. Pt preferred language is Burundian. Pt. denies fall in last 12 months. Allergies and medications reviewed and updated. [facility] [address] [place], [place] [address]Y [address] [place] Cynthia Lucio 10/27/2019 3:20 PM documented in [...] filedocumented in this encounter Visit Diagnoses Diagnosis Right-sided abdominal pain of unknown cause - Primary documented in this encounter Insurance Payer Benefit Plan / Subscriber ID Effective Dates Phone Address Type Group MEDICARE MEDICARE PART xxxxxxxxxxx 2018-Vahid [phone] Medicare A & B nt 2 [id number] [place] [id number] [phone] [id number] (Work) documented as of this encounter"
--- OUTSIDE RECORDS SUMMARY | 2019-12-03 10:48 | XMS REPORT | Summary of Care ---
:1955 Author Organization [facility] Address [address] [place] [address] Care Team Providers Name Role Phone Estephania Low MD Primary Care Provider Reason for Referral (Routine) Status Reason Specialty Diagnoses / Referred By Referred To Procedures Contact Contact Authorized Referring BJ-SURGERY / Diagnoses Right upper quadrant abdominal pain Right lower quadrant pain Right inguinal hernia Ravi Bustamante, Provider Surgery Procedures CONSULT/REFERRAL GENERAL SURGERY MD Amrita Alvarez MD Request [address] [facility] [address] [facility] [address] [place] [address] [place] [address] Phone: Fax: Reason for Visit Reason Comments Follow-up Abdominal Pain Other Vascular Claudication Constipation TOBACCO ABUSE Encounter Details Date Type Department Care Team Description 10/23/2019 Office Visit [facility] Pediatric Antonio Bustamante, Right upper quadrant abdominal pain (Primary Dx); and Adult Primary Right lower quadrant pain; [place] [address] [facility]; [facility] [address] claudication; [address] [place] [address] Constipation, unspecified constipation type; [place], [place] [phone] Tobacco abuse [id number] [phone] Allergies Active Allergy Reactions Severity Noted Date Comments Morphine Hives 10/21/2019 Shrimp Hives 01/27/2017 documented as of this encounter (statuses as of 11/02/2019) Medications Medication Sig Dispensed Refills Start Date [...] as of this encounter (statuses as of 11/02/2019) Active Problems Problem Noted Date Right lower quadrant pain 11/02/2019 Right inguinal hernia 11/02/2019 Vascular claudication 11/02/2019 Constipation, unspecified constipation type 11/02/2019 Tobacco abuse 11/02/2019 H. pylori infection 11/25/2018 Abdominal pain 11/04/2018 Essential hypertension 02/13/2017 documented as of this encounter (statuses as of 11/02/2019) Resolved Problems Problem Noted Date Resolved Date Acute cholecystitis 01/27/2017 02/13/2017 documented as of this encounter (statuses as of 11/02/2019) Social History Tobacco Use Types Packs/Day Years [...] Sign Reading Time Taken Comments Blood Pressure 103/72 10/23/2019 2:39 PM GRASS CUTTER Pulse 65 10/23/2019 2:39 PM GRASS C[facility]TER Temperature 36.8 C (98.2 F) 10/23/2019 2:39 PM GRASS C[facility]TER Respiratory Rate 18 10/23/2019 2:39 PM GR[facility] C[facility]TER Oxygen Saturation 99% 10/23/2019 2:39 PM GRASS CUTTER Inhaled Oxygen Concentration - - Weight 66.2 kg (146 lb) 10/23/2019 2:39 PM GRASS C[facility]TER Height - - Body Mass Index 26.7 10/21/2019 8:06 AM GRASS CUTTER documented in this encounter Patient Instructions Patient InstructionsEdAntonio cedeño MD - 10/23/2019 2:20 PM GR[facility] C[facility]TER Constipation (Adult) Constipation means that you have bowel movements that are less frequent than usual. Stools often become very hard and difficult to pass. Constipation is very common. At some point in life, it affects almost everyone. Since everyone's bowel habits are different, what is constipation to one person may not be to another. Your healthcare provider may do tests to diagnose constipation. It depends on whathe or shefinds when evaluating you. Symptoms of constipation include: Abdominal pain Bloating Vomiting Painful bowel movements Itching, swelling, bleeding, or pain around the anus Causes Constipation can have many causes. These include: Diet low in fiber Too much dairy Not drinking enough liquids Lack of exercise or physical activity (especially true for older adults) Changes in lifestyle or daily routine, including , aging, work, and travel Frequent use or misuse of laxatives Ignoring the urge to have a bowel movement or delaying it until later Medicines, such as certain prescription pain medicines, iron supplements, antacids, certain antidepressants, and calcium supplements Diseases like irritable bowel syndrome, bowel obstructions, stroke, diabetes , thyroid disease, Parkinson disease, hemorrhoids, and colon cancer Complications Potential complications of constipation can include: Hemorrhoids Rectal bleeding from hemorrhoids or anal fissures(skin tears) Hernias Dependency on laxatives Chronic constipation Fecal impaction, a severe form of constipation in which a large amount of hard stool is in your rectum that you can't pass Bowel obstruction or perforation Home care All treatment should be done after talking with your healthcare provider. This is especially true ifyou have another medical problems, are taking prescription medicines, or are an older adult. Treatment most often involves lifestyle changes. You may also need medicines. Your healthcare provider will tell you which will work best for you. Follow the advice below to help avoid this problem in the future. Lifestyle changes These lifestyle changes can help prevent constipation: Diet. Eat a high-fiber diet, with fresh fruit and vegetables, and reduce dairy intake, meats, andprocessed foods Fluids. It's important to get enough fluids each day. Drink plenty of water when you eat more fiber. If you are on diet that limits the amount of fluid you can have, talk about this with your healthcare provider. Regular exercise. Check with your healthcare provider first. Medicines Take any medicines as directed. Some laxatives are safe to use only every now and then. Others can be taken on a regular basis. While laxatives don't cause bowel dependence, they are treating the symptoms. So your constipation may return if you don't make other changes. Talk with your healthcare provider or pharmacist if you have questions. Prescription pain medicines can cause constipation. If you are taking this kind of medicine, ask your healthcare provider if you should also take a stool softener. Medicines you may take to treat constipation include: Fiber supplements Stool softeners Laxatives Enemas Rectal suppositories Follow-up care Follow up with your healthcare provider if symptoms don't get better in the next few days. You may need to have more tests or see a specialist. Call 911 Call 911 if any of these occur: Trouble breathing Stiff, rigid abdomen that is severely painful to touch Confusion Fainting or loss of consciousness Rapid heart rate Chest pain When to seek medical advice Call your healthcare provider right away if any of these occur: Fever of 100.4F (38C) or higher, or as directed by your healthcare provider Failure to resume normal bowel movements Pain in your abdomen or back gets worse Nausea or vomiting Swelling in your abdomen Blood in the stool Black, tarry stool Involuntary weight loss Weakness [employer] last reviewed this educational content on 02/07/201819992882-7445 [employer]. [address] [place] [address]. All rights reserved. This information is not intended as a substitute for professional medical care. Always follow your healthcare professional's instructions. Hernia (Adult) A hernia can happen when there is a weakness or defect in the wall of the abdomen or groin.Intestines or nearby tissues may move from their usual location and push through the weakness in the wall. This can cause a hernia ( bulge) you may see or feel. Causes and risk factors A hernia may be present at . Or it may be caused by the wear and tear of daily living. Certain factors can make a hernia more likely. These can include: Heavy lifting Straining, whether from lifting, movement, or constipation Chronic cough Injury to the abdominal wall Excess weight Prior surgery Older age Family history of hernia Symptoms Symptoms of a hernia may come on suddenly. Or they may appear slowly over time. Some common symptomsinclude: Bulge in the groin area, around the navel, or in the scrotum (the bulge may get bigger when you stand and go away when you lie down) Pain or pressure around the bulge Pain during activities such as lifting, coughing, or sneezing A feeling of weakness or pressure in the groin Pain or swelling in the scrotum Types of hernias There are different types of hernia. The type you have depends on its location: Inguinal. This type is in the groin or scrotum. It is more common in men. But , women can get thishernia, too. Femoral. This type is in the groin, upper thigh (where the leg bends), or labia. It is more common in women. Ventral. This type is in the abdominal wall. Umbilical. This type occurs around the navel (belly button). Incisional. This type occurs at the site of a previous surgery. The condition of the hernia can help determine how urgently it needs to be treated. Reducible. It goes back in by itself, or it can be pushed back in. Irreducible. It cant be pushed back in. Incarcerated/strangulated. The intestine is trapped (incarcerated). If this happens, you wont be able to push the bulge back in. If the incarcerated hernia isnt treated, it may become strangulated. This means the area loses blood supply and the tissue may .This requires emergency surgery. You need treatment right away. In most cases, a hernia will not heal on its own.You may need surgery to repair the defect in the abdominal wall or groin. Youll be told more about surgery, if needed. If your symptoms are not severe, treatment may sometimes be delayed. In such cases, you will need regular follow-up visits with the provider. Youll be asked to keep track of your symptoms and to watch for signs of more serious problems. You may also be given guidelines similar to the home care instructions below. Home care To help keep a hernia from getting worse, you may be advised to: Avoid heavy lifting and straining as directed. Take steps to prevent constipation, such as eating more fiber and drinking more water. This may help reduce straining that can occur when having a bowel movement. Reducing straining may help keep your symptoms from getting worse. Maintain a healthy weight or lose excess weight. This can help reduce strain on abdominal musclesand tissues. Stop smoking. This can help prevent coughing that may also strain abdominal muscles and tissues. Follow-up care Follow up with your healthcare provider, or as directed.If imaging tests were done, they will be reviewed a doctor. You will be told the results and any new findings that may affect your care. When to seek medical advice Call your healthcare provider right away if any of these occur: Hernia hardens, swells, or grows larger Hernia can no longer be pushed back in Pain moves to the lower right abdomen (just below the waistline), or spreads to the back Call 911 Call 911if any of these occur: Severe pain, redness, or tenderness in the area near the hernia Pain worsens quickly and doesnt get better Inability to have a bowel movement or pass gas Fever of 100.4F (38C) or higher, or as directed by your healthcare provider [employer] last reviewed this educational content on 11/07/201719992738-7973 [employer]. [address] [place] [address], [place] [address]. All rights reserved. This information is not intended as a substitute for professional medical care. Always follow your healthcare professional's instructions. S CUTTER documented in this encounter Progress Notes Antonio Bustamante MD - 10/23/2019 2:20 PM CST Hospital Discharge Follow-up CC: Follow-up; Abdominal Pain; Other (Vascular Claudication); Constipation; and TOBACCO ABUSE HPI Patient is a 64 year old male who is here today for follow up after hospitalization. Patient hospitalized on 10/21/2019 at [facility] for abdominal pain. Since discharge condition is unchanged. Patient complains today of same symptoms at this visit. Patient denies abdominal trauma, recurrent diarrhea or constipation. Patient was seen at the [facility], transferred to [facility] for further work-up. CT abdomen pelvis completed showed that patient is s/p cholecystectomy. There was no evidence of acute intra-abdominal or pelvis abnormalities, though patient has moderate atherosclerosis of the aorta and iliac arteries in the proximal SMA, that was unchanged from prior imaging completed 10/2018. Cystic lesions also found on one of the right lobe of the liver was unchanged. Patient reports he completed gallbladder removal in 2017, reports Sx sometimes feels like it cuts out his circulation when in pain. He also reports right groin pain, has right inguinal hernia, reports Sx with BM and bearing down. Sometimes pain starts in the region of the right groin and travels up the abdomen, and at other times, same Sx starts from the upper abdomen around the RUQ and travels downward. He sometimes has N/V when in pain, with intermittent constipation. Denies blood in stools, diarrhea or painful urination. Patient does not drink alcohol. He smokes 1PPD, has smoked since age 11 year- old. HISTORY Past Medical History: Diagnosis Date Essential hypertension, benign Family History Problem Relation Age of Onset Lung Cancer Father smoking Family Status Relation Name Status Fa (Not Specified) Past Surgical History: Procedure Laterality Date ESOPHAGOGASTRODUODENOSCOPY N/A 01/28/2017 Surgeon: Storm Michelle MD; Location: [facility] OR Location ESOPHAGOGASTRODUODENOSCOPY N/A 11/05/2018 Surgeon: Storm Michelle MD; Location: [facility] OR Location INGUINAL HERNIORRHAPHY Left LAPAROSCOPIC CHOLECYSTECTOMY N/A 01/31/2017 Surgeon: Gabo Warner MD; Location: [facility] OR Location CA ARTHRODESIS PRESACRAL INTRBDY W/INSTRUMENT L4/L5 CA EGD TRANSORAL BIOPSY SINGLE/MULTIPLE 01/28/2017 CA LAP,CHOLECYSTECTOMY/GRAPH 02/02/2017 Social History Socioeconomic History Marital status: Single [...] file Gets together: Not on file Attends temple service: Not on file Active member of [...] file Social History Narrative Not on file REVIEW OF SYSTEMS Constitutional: Abdominal pain with Nausea. Eyes: denies blurry vision and denies decreased vision. Ears: denies ear pain and denies hearing impairment. Nose/Sinuses: denies congestion and denies postnasal drip. Mouth/Throat: denies mouth pain, denies oral lesions and denies soreness. Neck: denies pain, denies swollen glands Cardiovascular: denies chest pain , denies irregular pulse, denies palpitations and denies tachycardia. Respiratory: denies chest congestion, denies cough , denies dyspnea on exertion and denies shortnessof breath. Gastrointestinal: + abdominal pain located in the right lower quadrant and right upper quadrant, + constipation and + nausea. Genitourinary: denies anuresis, denies burning, denies decreased urine output, denies decreased urine stream, denies hematuria and denies inability to start stream. Musculoskeletal: denies gait disturbance, denies joint pain, denies joint stiffness, denies joint swelling and denies weakness. Neuro: denies ataxia, denies paralysis, denies paraesthesias, denies syncope and denies tremor. PHYSICAL EXAMINATION BP 103/72 (BP Location: Left arm, Patient Position: Sitting, BP CUFF SIZE: Adult Medium) | Pulse 65 | Temp 36.8 C (98.2 F) (Oral) | Resp 18 | Wt 146 lb (66.2 kg) | SpO2 99% | BMI 26.70 kg/m Constitutional appears stated age Eyes: sclera clear, PERRL and EOMI Ears: external inspections normal Nose: septum normal Oropharynx: dentition good Neck: Supple Cardiovascular: rhythm normal S1/S2 present, carotids: amplitude normal and bruits no, dorsalis pedis 1+ symmetric and adbominal aorta pulsatile no Respiratory: clear to auscultation, breath sounds normal and respiratory effort unlabored Gastrointestinal: bowel sounds present , masses absent and small right inguinal hernia present Musculoskeletal: gait normal Skin: normal Neurological: CN II - XII intact and sensation: normal to touch Imaging CT Abdomen/Pelvis 10/21/2019 - No acute intra-abdominal or pelvic abnormalities detected. - s/p cholecystectomy. - Moderate atherosclerosis of the aorta and iliac arteries with approximately 50 % stricture of the lower abdominal aorta just above the bifurcation, long 50-60 % stricture in the proximal SMA, unchangedwhen compared with October 2018 study - Cystic lesions, one in the left lobe and one in the right lobe of the liver, unchanged. ASSESSMENT/PLAN Right upper quadrant abdominal pain - s/p cholecystectomy. Complicated by vascular claudication, smoking, small right inguinal hernia and constipation - Symptomatic management, need further evaluation by General Surgery - CONSULT/REFERRAL GENERAL SURGERY - meperidine 50 mg tablet; Take 1 tablet by mouth every 6 (six) hours as needed for Pain (scale 7-10) (Abdominal Pain). Dispense: 60 tablet; Refill: 0 Vascular claudication - CT abdomen/Plevis reviewed and discussed, vascular changes likely contributing to spams-like presentation and abdominal/G.I symptoms. Patient is not currently any statin, will initiate therapy - cilostazoL 50 mg tablet; Take 1 tablet by mouth 2 (two) times daily. Dispense : 60 tablet; Refill:2 - atorvastatin 10 mg tablet; Take 1 tablet by mouth at bedtime. Dispense: 30 tablet; Refill: 2 - LIPID PANEL (75528)(TOTAL CHOLESTEROL, TRIGLYCERIDES, HDL); Future Constipation, unspecified constipation type - Symptomatic management, encouraged diet modification - docusate 100 mg capsule; Take 1 capsule by mouth 2 (two) times daily as needed for Constipation. Dispense: 60 capsule; Refill: 2 - sennosides 8.6 mg tablet; Take 1 tablet by mouth daily. Dispense: 30 tablet; Refill: 2 - cilostazoL 50 mg tablet; Take 1 tablet by mouth 2 (two) times daily. Dispense : 60 tablet; Refill:2 Tobacco abuse - Currently smoking 1 PPD, benefit of cessation discussed> 10 mins Preventive Care: Medication reconciliation, patient education and anticipatory guidance completed. All questions and concerns addressed. AVS given, handout on Constipation and Hernia rovided. Return in about 2 weeks (around 11/06/2019), or if symptoms worsen or fail to improve. Antonio Bustamante MD 10/23/2019 3:55 PM documented in this encounter Plan of Treatment Date Type Specialty Care Team Description 11/11/2019 Office Visit Family Medicine Antonio Bustamante MD [address] [place] [address] Dr [address] [place] [address] [phone] Health Maintenance Due Date Last Done Comments [...] etc) documented as of this encounter Results LIPID PANEL (61222)(TOTAL CHOLESTEROL, TRIGLYCERIDES, HDL) (10/26/2019 8:36 AM GRASS CUTTER) CHOL 174 120 - 200 mg/dL [facility] HDL 38 (L) >40 mg/dL [facility] HDLC RATIO 4.6 <=5.0 [facility] TRIG 129 30 - 170 mg/dL [facility] LDL CHOL 110 <=160 mg/dL [facility] VLDL 26 5 - 60 mg/dL [facility] Specimen Blood Performing Organization Address City/State/Zipcode Phone Number [facility] CLIA: [id number], [address] [place] [address] documented in this encounter Visit Diagnoses Diagnosis Right upper quadrant abdominal pain - Primary Abdominal pain, right upper quadrant Right lower quadrant pain Abdominal pain, right lower quadrant Right inguinal hernia Inguinal hernia without mention of obstruction or gangrene, unilateral or unspecified, (not specified as recurrent) Vascular claudication Peripheral vascular disease, unspecified Constipation, unspecified constipation type Tobacco abuse Tobacco use disorder documented in this encounter Insurance Payer Benefit Plan / Subscriber ID Effective Dates Phone Address Type Group MEDICARE MEDICARE PART xxxxxxxxxxx 2018-Vahid [phone] [id number] [place] [address] [phone] [id number] (Work) documented as of this encounter"
--- OUTSIDE RECORDS SUMMARY | 2019-12-03 10:48 | XMS REPORT | Summary of Care ---
:1955 Author Organization [facility] - Health Address [address] [place] [address] Care Team Providers Name Role Phone Estephania Low MD Primary Care Provider Encounter Details Date Type Department Care Team Description 10/26/2019 Orders Only [facility] Doctor Unassigned, No [address] [facility] Name [place] [phone] [place] [address] Allergies Active Allergy Reactions Severity Noted Date Comments Morphine Hives 10/21/2019 Shrimp Hives 01/27/2017 documented as of this encounter (statuses as of 10/30/2019) Medications Medication Sig Dispensed Refills Start Date [...] as of this encounter (statuses as of 10/30/2019) Active Problems Problem Noted Date H. pylori infection 11/25/2018 Abdominal pain 11/04/2018 Essential hypertension 02/13/2017 documented as of this encounter (statuses as of 10/30/2019) Resolved Problems Problem Noted Date Resolved Date Acute cholecystitis 01/27/2017 02/13/2017 documented as of this encounter (statuses as of 10/30/2019) Social History Tobacco Use Types Packs/Day Years [...] Office Visit Family Medicine Antonio Bustamante MD [address] [place] [address] [place] [address] [phone] Health Maintenance Due Date Last Done Comments [...] Procedure Name Priority Date/Time Associated Diagnosis Comments AGREEMENTS AUTHORIZATIONS Routine 10/26/2019 12:01 AM AND IRREVOCABLE PASTRY WRAPPER ASSIGNMENTS (FORM 2001) documented in this encounter Results Not on filedocumented in this encounter Insurance Payer Benefit Plan / Subscriber ID Effective Dates Phone Address Type Group MEDICARE MEDICARE PART xxxxxxxxxxx 2018-Vahid [phone] [address] [id number] [place] [id number] documented as of this encounter
--- OUTSIDE RECORDS SUMMARY | 2019-12-03 10:48 | XMS REPORT | Summary of Care ---
:1955 Author Organization [facility] Address [address] [place] [address] Care Team Providers Name Role Phone Estephania [...] SURGERY MD Amrita Alvarez MD Request [address] [address] [address] [address] Phone: Fax: Encounter Details Date Type Department Care Team Description 10/27/2019 Office Visit [facility] Surgical Amrita Rodrigues, Esophagitis (Primary Specialties - Elda OROSCO Dx) [facility] [address] [place] [address] [place] [address] [address] [place] [address] [phone] Allergies Active Allergy Reactions Severity Noted Date [...] Comments Blood Pressure 130/82 10/27/2019 3:19 PM FIRE OBSERVER Pulse 72 10/27/2019 3:19 PM FIRE OBSERVER Temperature 35.9 C (96.7 F) 10/27/2019 3:19 PM FIRE OBSERVER Respiratory Rate 18 10/27/2019 3:19 PM FIRE OBSERVER Oxygen Saturation - - Inhaled Oxygen Concentration - - Weight 66.6 kg (146 lb 12.8 oz) 10/27/2019 3:19 PM FIRE OBSERVER Height - - Body Mass Index 26.85 10/21/2019 8:06 AM FIRE OBSERVER documented in this encounter Progress Notes Roc Camarillo MD - 10/27/2019 3:15 PM CST GENERAL SURGERY CLINIC NOTE Date of Service: 10/27/2019 HPI The patient is a 64 year-old male who presents with complaints of right sided abdominal pain. Recently transferred to [place] after presentation to ED with same symptoms. Reports that there was concern for occlusion of abdominal vasculature, and accepted by vascular surgery in [place]. Reports that his pain comes in short [...] N/A 01/28/2017 Surgeon: Storm Michelle MD; Location: [facility] OR [facility] ESOPHAGOGASTRODUODENOSCOPY N/A 11/05/2018 Surgeon: Storm Michelle MD; Location: [facility] OR Location INGUINAL HERNIORRHAPHY Left LAPAROSCOPIC CHOLECYSTECTOMY N/A 01/31/2017 Surgeon: Gabo Warner MD; Location: [facility] OR [facility] [place] ARTHRODESIS PRESACRAL INTRBDY W/INSTRUMENT L4/L5 [place] EGD TRANSORAL BIOPSY SINGLE/MULTIPLE 01/28/2017 [place] LAP,CHOLECYSTECTOMY/GRAPH 02/02/2017 Family History Problem Relation Age [...] file Gets together: Not on file Attends orthodoxy service: Not on file Active member of [...] pain reported 03/18. Pt preferred language is [place]. Pt. denies fall in last 12 months. Allergies and medications reviewed and updated. [facility] [address] [place] [address] - [address] Cynthia Lucio 10/27/2019 3:20 PM documented in this encounter Plan of Treatment Date Type Specialty Care Team Description 11/11/2019 Office Visit Family Medicine Antonio Bustamante MD [address] [place] [address] Dr Truong [address] [place] [place] [address] [phone] Health Maintenance Due Date Last Done Comments [...] BOX Medicare A & B nt 2 [id number] [place] F[place] [id number] [phone] (Work) documented as of this encounter"
--- OUTSIDE RECORDS SUMMARY | 2019-12-03 10:48 | XMS REPORT | Summary of Care ---
:1955 Author Organization [facility] Address [address] [place] [address] Care Team Providers Name Role Phone Estephania Low MD Primary Care Provider Reason for Referral (Routine) Status Reason Specialty Diagnoses / Referred By Referred To Procedures Contact Contact Authorized Referring BJ-SURGERY / Diagnoses Right upper quadrant abdominal pain Right lower quadrant pain Right inguinal hernia Ravi Bustamante, Provider Surgery Procedures CONSULT/REFERRAL GENERAL SURGERY MD Amrita Alvarez MD Request [address] [facility] [address] [facility] [address] [address] [place] [address] Phone: Fax: Reason for Visit Reason Comments Follow-up Abdominal Pain Other Vascular Claudication Constipation TOBACCO ABUSE Encounter Details Date Type Department Care Team Description 10/23/2019 Office Visit [facility] Pediatric Antonio Bustamante, Right upper quadrant abdominal pain (Primary Dx); and Adult Primary Right lower quadrant pain; [address] [address] [facility] Right inguinal [facility]; [facility] [address] claudication; [address] [place] [address] Constipation, unspecified constipation type; [place], [place] [phone] Tobacco abuse [id number] [phone] Allergies Active Allergy Reactions Severity Noted Date [...] Comments Blood Pressure 103/72 10/23/2019 2:39 PM 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 Pulse 65 10/23/2019 2:39 PM 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 Temperature 36.8 C (98.2 F) 10/23/2019 2:39 PM 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 Respiratory Rate 18 10/23/2019 2:39 PM 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 Oxygen Saturation 99% 10/23/2019 2:39 PM 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 Inhaled Oxygen Concentration - - Weight 66.2 kg (146 lb) 10/23/2019 2:39 PM 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 Height - - Body Mass Index 26.7 10/21/2019 8:06 AM 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 documented in this encounter Patient Instructions Patient InstructionsEdAntonio cedeño MD - 10/23/2019 2:20 PM 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 Constipation (Adult) Constipation means that you have [...] Black, tarry stool Involuntary weight loss Weakness [employer] last reviewed this educational content on 02/07/201819992187-5035 [employer]. [address] [place] [address]. All rights reserved. This information is not [...] or as directed by your healthcare provider [employer] last reviewed this educational content on 11/07/201719996177-1290 [employer]. [address] [place] [address], [place] [address]. All rights reserved. This information is not intended as a substitute for professional medical care. Always follow your healthcare professional's instructions. 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 Patient hospitalized on 10/21/2019 at [facility] for abdominal pain. Since discharge condition is unchanged. Patient complains today of same symptoms at this visit. Patient denies abdominal trauma, recurrent diarrhea or constipation. Patient was seen at the [facility], transferred to [facility] for further work-up. CT abdomen pelvis completed [...] N/A 01/28/2017 Surgeon: Storm Michelle MD; Location: [facility] OR Location ESOPHAGOGASTRODUODENOSCOPY N/A 11/05/2018 Surgeon: Storm Michelle MD; Location: [facility] OR Location INGUINAL HERNIORRHAPHY Left LAPAROSCOPIC CHOLECYSTECTOMY N/A 01/31/2017 Surgeon: Gabo Warner MD; Location: [facility] OR Location [place] ARTHRODESIS PRESACRAL INTRBDY W/INSTRUMENT L4/L5 [place] EGD TRANSORAL BIOPSY SINGLE/MULTIPLE 01/28/2017 [place] LAP,CHOLECYSTECTOMY/GRAPH 02/02/2017 Social History Socioeconomic History Marital [...] file Gets together: Not on file Attends lutheran service: Not on file Active member of [...] 30 tablet; Refill: 2 - LIPID PANEL (63591)(TOTAL CHOLESTEROL, TRIGLYCERIDES, HDL); Future Constipation, unspecified constipation [...] Office Visit Family Medicine Antonio Bustamante MD [address] [place] [address] Dr Tru[address] [place] [address] [phone] Health Maintenance Due Date Last Done Comments [...] as of this encounter Results LIPID PANEL (00795)(TOTAL CHOLESTEROL, TRIGLYCERIDES, HDL) (10/26/2019 8:36 AM 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) CHOL 174 120 - 200 mg/dL [facility] HDL 38 (L) >40 mg/dL [facility] HDLC RATIO 4.6 <=5.0 [facility] TRIG 129 30 - 170 mg/dL [facility] LDL CHOL 110 <=160 mg/dL [facility] VLDL 26 5 - 60 mg/dL [facility] Specimen Blood Performing Organization Address City/State/Zipcode Phone Number [facility] CLIA: [id number], [address] [place] [address] documented in this encounter [...] BOX Medicare A & B nt 2 [id number] [place] [address] [phone] (Work) documented as of this encounter"
--- NOTE | 2019-12-03 13:02 | ER ---
Nurse's Notes [facility] Name: Ronny Petres Age: 64 yrs Sex: Male : 1955 Arrival Date: 12/03/2019 Time: 10:46 Bed 30 Private MD: Diagnosis: Acute upper respiratory infection, unspecified;Dental caries Presentation: 12/02 10:46 Chief complaint: Patient states: I got a call from my daughter today and she said my ca1 grand daughter is positive of COVID 19. My had contact with my grand daughter and she's admitted here for Pneumonia. I did not have direct contact with my grand daughter but with my yes. Reports runny nose at this time. Denies fever and cough at this time. Coronavirus screen: Surgical mask placed on patient. Patient moved to private room, placed in contact and droplet isolation with eye protection until further assessment. Patient denies measured and/or subjective temperature greater than 100.4F. Patient denies a cough. Patient denies shortness of breath or difficulty breathing. Patient denies travel on a cruise ship or to a country the [facility] currently lists as an affected area. Patient reports contact with known and/or suspected case of COVID-19. Infection Prevention Nurse has been notified of patient in isolation for probable COVID-19. Ebola Screen: Patient negative for fever greater than or equal to 101.5 degrees Fahrenheit, and additional compatible Ebola Virus Disease symptoms Patient denies exposure to infectious person. Patient denies travel to an Ebola-affected area in the 21 days before illness onset. No symptoms or risks identified at this time. Initial Sepsis Screen: Does the patient meet any 2 criteria? No. Patient's initial sepsis screen is negative. Does the patient have a suspected source of infection? No. Patient's initial sepsis screen is negative. Risk Assessment: Do you want to hurt yourself or someone else? Patient reports no desire to harm self or others. Onset of symptoms was December 03, 2019. 10:46 Method Of Arrival: Ambulatory ca1 10:46 Acuity: LIANG 4 ca1 Historical: - Allergies: 11:13 PENICILLINS; ca1 - PMHx: 11:13 Hypertension; Kidney stones; ca1 - PSHx: 11:13 Hernia repair; L4 L5 fusion; ca1 - Immunization history:: Adult Immunizations up to date, Flu vaccine is not up to date. - Social history:: Smoking status: Patient reports the use of cigarette tobacco products, smokes one pack cigarettes per day. Screenin:15 Abuse screen: Denies threats or abuse. Nutritional screening: No deficits noted. rb1 Tuberculosis screening: No symptoms or risk factors identified. Fall Risk None identified. Assessment: 11:15 General: Appears in no apparent distress. comfortable, Behavior is calm, cooperative, rb1 Reports fever for 2-3 days, Pt. reports that he has a bad tooth and believes that his fever and headache started from that 3 days ago. Pain: Complains of pain in left jaw Pain currently is 8 out of 10 on a pain scale. Pain began 2-3 days ago. Neuro: Level of Consciousness is awake, alert, obeys commands, Oriented to person, place, time, situation. Cardiovascular: Capillary refill < 3 seconds is brisk in bilateral fingers. Respiratory: Reports cough that is productive, white sputum Airway is patent Respiratory effort is even, unlabored, Respiratory pattern is regular, symmetrical, Denies shortness of breath. GI: No signs and/or symptoms were reported involving the gastrointestinal system. : No signs and/or symptoms were reported regarding the genitourinary system. Derm: Skin is pink, warm \T\ dry. Musculoskeletal: Range of motion: intact in all extremities. 12:15 Reassessment: Patient appears in no apparent distress at this time. No changes from rb1 previously documented assessment. Pt. talking on his telephone. 13:08 Reassessment: Patient appears in no apparent distress at this time. Patient and/or rb1 family updated on plan of care and expected duration. Pain level reassessed. Patient is alert, oriented x 3, equal unlabored respirations, skin warm/dry/pink. Vital Signs: 10:46 BP 140 / 86; Pulse 75; Resp 18 S; Temp 97.9(TE); Pulse Ox 100% on R/A; Weight 63.5 kg ca1 (R); Height 5 ft. 4 in. (162.56 cm) (R); 12:15 Pulse 68; Resp 19; Pulse Ox 99% on R/A; rb1 13:08 BP 140 / 100; Pulse 64; Resp 18; Pulse Ox 99% on R/A; rb1 13:20 BP 155 / 79; Pulse 60; Resp 17; Pulse Ox 100% ; rb1 10:46 Body Mass Index 24.03 (63.50 kg, 162.56 cm) ca1 ED Course: 10:46 Patient arrived in ED. ag5 11:12 Triage completed. ca1 11:13 Arm band placed on right wrist. ca1 11:15 Jessica Sanchez, RN is Primary Nurse. rb1 11:15 Patient has correct armband on for positive identification. Pulse ox on. NIBP on. Warm rb1 blanket given. 11:16 Real Burroughs MD is Attending Physician. kdr 11:23 Prashant Moya PA is PHCP. jr8 11:51 Health Dept notified COVID test sent to lab/ PUI # [id number]/ lab notified. eb 13:21 No provider procedures requiring assistance completed. Patient did not have IV access rb1 during this emergency room visit. Administered Medications: No medications were administered Outcome: 13:00 Discharge ordered by . jr8 13:21 Patient left the ED. rb1 13:21 Discharged to home ambulatory. rb1 13:21 Condition: stable 13:21 Discharge instructions given to patient, Instructed on discharge instructions, follow up and referral plans. medication usage, Demonstrated understanding of instructions, follow-up care, medications, Prescriptions given X 1. Signatures: Real Burroughs MD MD kdr Prashant Moya PA PA 8 Jessica Sanchez, RN RN rb1 Estephania Velez Cheryl, RN RN ca1 Jace Kimble ag5
--- NOTE | 2019-12-03 13:03 | EDPHYS ---
Physician Documentation [facility] Name: Ronny Peters Age: 64 yrs Sex: Male : 1955 Arrival Date: 12/03/2019 Time: 10:46 Bed 30 Private MD: ED Physician Real Burroughs HPI: 12/02 11:29 This 64 yrs old Male presents to ER via Ambulatory with complaints of Cough, jr8 Cold Symptoms. 11:29 The patient or guardian reports flu symptoms, low-grade fever, myalgias, rhinorrhea . jr8 Onset: The symptoms/episode began/occurred gradually, 1 week(s) ago. Severity of symptoms: At their worst the symptoms were mild, in the emergency department the symptoms are unchanged. Modifying factors: The symptoms are alleviated by nothing, the symptoms are aggravated by nothing. Associated signs and symptoms: Pertinent positives: fever, rhinorrhea. The patient has not experienced similar symptoms in the past. The patient has not recently seen a physician. Stated that his was admitted yesterday for pneumonia. was in recent contact with COVID + grand daughter. Stated that he has been in contact with but not child. Has some symptoms that started over a week ago but recently with fever for past couple of days . Historical: - Allergies: 11:13 PENICILLINS; ca1 - PMHx: 11:13 Hypertension; Kidney stones; ca1 - PSHx: 11:13 Hernia repair; L4 L5 fusion; ca1 - Immunization history:: Adult Immunizations up to date, Flu vaccine is not up to date. - Social history:: Smoking status: Patient reports the use of cigarette tobacco products, smokes one pack cigarettes per day. ROS: 11:29 Eyes: Negative for injury, pain, redness, and discharge, Neck: Negative for injury, jr8 pain, and swelling, Cardiovascular: Negative for chest pain, palpitations, and edema, Respiratory: Negative for shortness of breath, cough, wheezing, and pleuritic chest pain, Abdomen/GI: Negative for abdominal pain, nausea, vomiting, diarrhea, and constipation, Back: Negative for injury and pain, MS/Extremity: Negative for injury and deformity, Skin: Negative for injury, rash, and discoloration, Neuro: Negative for headache, weakness, numbness, tingling, and seizure. 11:29 Constitutional: Positive for fever. 11:29 ENT: Positive for dental pain, rhinorrhea, sinus congestion. Exam: 11:29 Eyes: Pupils equal round and reactive to light, extra-ocular motions intact. Lids and jr8 lashes normal. Conjunctiva and sclera are non-icteric and not injected. Cornea within normal limits. Periorbital areas with no swelling, redness, or edema. ENT: Nares patent. No nasal discharge, no septal abnormalities noted. Tympanic membranes are normal and external auditory canals are clear. Oropharynx with no redness, swelling, or masses, exudates, or evidence of obstruction, uvula midline. Mucous membranes moist. Neck: Trachea midline, no thyromegaly or masses palpated, and no cervical lymphadenopathy. Supple, full range of motion without nuchal rigidity, or vertebral point tenderness. No Meningismus. Cardiovascular: Regular rate and rhythm with a normal S1 and S2. No gallops, murmurs, or rubs. Normal PMI, no JVD. No pulse deficits. Respiratory: Lungs have equal breath sounds bilaterally, clear to auscultation and percussion. No rales, rhonchi or wheezes noted. No increased work of breathing, no retractions or nasal flaring. Abdomen/GI: Soft, non-tender, with normal bowel sounds. No distension or tympany. No guarding or rebound. No evidence of tenderness throughout. Back: No spinal tenderness. No costovertebral tenderness. Full range of motion. Skin: Warm, dry with normal turgor. Normal color with no rashes, no lesions, and no evidence of cellulitis. MS/ Extremity: Pulses equal, no cyanosis. Neurovascular intact. Full, normal range of motion. Neuro: Awake and alert, GCS 15, oriented to person, place, time, and situation. Cranial nerves II-XII grossly intact. Motor strength 5/5 in all extremities. Sensory grossly intact. Cerebellar exam normal. Normal gait. Vital Signs: 10:46 BP 140 / 86; Pulse 75; Resp 18 S; Temp 97.9(TE); Pulse Ox 100% on R/A; Weight 63.5 kg ca1 (R); Height 5 ft. 4 in. (162.56 cm) (R); 12:15 Pulse 68; Resp 19; Pulse Ox 99% on R/A; rb1 13:08 BP 140 / 100; Pulse 64; Resp 18; Pulse Ox 99% on R/A; rb1 13:20 BP 155 / 79; Pulse 60; Resp 17; Pulse Ox 100% ; rb1 10:46 Body Mass Index 24.03 (63.50 kg, 162.56 cm) ca1 MDM: 11:28 Patient medically screened. [facility] 11:29 Data reviewed: vital signs, nurses notes, lab test result(s). Data interpreted: Pulse 8 oximetry: on room air is 100 %. Interpretation: normal. Counseling: I had a detailed discussion with the patient and/or guardian regarding: the historical points, exam findings, and any diagnostic results supporting the discharge/admit diagnosis, lab results, the need for outpatient follow up, a family practitioner, to return to the emergency department if symptoms worsen or persist or if there are any questions or concerns that arise at home. 12:59 ED course: Negative strep and flu. Explained to him that he needs to remain in jr8 isolation and wait on COVID results . 12/02 11:29 Order name: Strep [facility] 12/02 11:29 Order name: Influenza Screen (a \T\ B); Complete Time: 12:59 [facility] 12/02 11:29 Order name: Misc. Lab Test [facility] 12/02 12:17 Order name: Throat Culture EDMS Administered Medications: No medications were administered Disposition: 12/03 07:06 Co-signature as Attending Physician, Real Burroughs MD I agree with the assessment and kdr plan of care. Disposition: 12/03/19 13:00 Discharged to Home. Impression: Acute upper respiratory infection, unspecified, Dental caries. - Condition is Stable. - Discharge Instructions: Dental Caries, Adult, Dental Pain, Upper Respiratory Infection, Adult. - Prescriptions for Clindamycin HCl 300 mg Oral Capsule - take 1 capsule by ORAL route every 6 hours for 7 days; 28 capsule. - Medication Reconciliation Form, Thank You Letter form. - Follow up: Private Physician; When: 10 - 14 days; Reason: Recheck today's complaints, Continuance of care, Re-evaluation by your physician. - Problem is new. - Symptoms have improved. Signatures: Dispatcher [employer] EDMS Real Burroughs MD MD kdr Roszak, Josh, PA PA 8 Jessica Sanchez, RN RN rb1 Vaishnavi Leary RN RN ca1 Corrections: (The following items were deleted from the chart) 12/02 13:21 13:00 12/03/2019 13:00 Discharged to Home. Impression: Acute upper respiratory rb1 infection, unspecified; Dental caries. Condition is Stable. Forms are Medication Reconciliation Form, Thank You Letter, Antibiotic Education, Prescription Opioid Use. Follow up: Private Physician; When: 10 - 14 days; Reason: Recheck today's complaints, Continuance of care, Re-evaluation by your physician. Problem is new. Symptoms have improved. jr8
[2019-12-03 13:45] VITALS: TEMP 97.9
[2019-12-03 13:46] VITALS: O2SAT 99
[2019-12-03 13:48] VITALS: BP 140/100
== END 2019-12-03 13:21 | disposition home or self-care (01) ==
LOC: ER 10:43
DX: J06.9 Acute upper respiratory infection, unspecified (principal); B97.29 Other coronavirus as the cause of diseases classified elsewhere; Z20.828 Contact with and (suspected) exposure to other viral communicable diseases; F17.210 Nicotine dependence, cigarettes, uncomplicated; I10 Essential (primary) hypertension; Z88.0 Allergy status to penicillin
CPT/HCPCS: 87070; 87081; 87804 ×2; 99283; U0001

== ENCOUNTER 2019-12-06 12:26 | Emergency (ER) | payer OTHER ==
--- OUTSIDE RECORDS SUMMARY | 2019-12-06 12:30 | XMS REPORT ---
:1955 [facility] Address [address] [place] [address] [address] [place] [address] Care Team Providers Name Role Phone Unavailable Unavailable Unavailable Problems This patient has no known problems. Allergies, Adverse Reactions, Alerts This patient has no known allergies or adverse reactions. Medications This patient has no known medications.
--- OUTSIDE RECORDS SUMMARY | 2019-12-06 12:30 | XMS REPORT ---
[...] End Status Dosage System Date Date Montelukast [facility] [id number] 10 MG Orally Jun 26, Active 1 tablet Sodium Once a day [address] [facility] 69359519961 137 MCG/SPRAY Jun 26, Active 1 puff in Nasally Twice a 2018 each day nostril Celexa [facility] 03222500478 20 MG Orally Active 1 tablet Once a day Amoxicillin-Pot [facility] 45879568755 875-125 MG Oct 02, Oct 12, Active 1 tablet Clavulanate Orally every 12 [address] [facility] 37109686196 10 MG Orally Active 1 capsule Once a day Oseltamivir [facility] 57312569810 75 MG Orally Oct 02, Active 1 capsule Phosphate Twice a day 2019 Results Name Result Date Reference Range Unit Abnormality Flag STREP A RAPID ----Result Negative 20191002 FLU TEST A/B ----B NEG 20191002 ----A neg 20191002 Summary Purpose eClinicalWorks Submission
--- NOTE | 2019-12-06 14:30 | RAD REPORT ---
EXAM DESCRIPTION: Mckay Single View12/06/2019 2:03 pm CLINICAL HISTORY: sob COMPARISON: 2016 FINDINGS: The lungs appear clear of acute infiltrate. The heart is normal size IMPRESSION: No acute abnormalities displayed
[2019-12-06 14:36] LABS: Basophils % 0.6 % (0-1.3); Hematocrit 46.1 % (39.6-49.0); Lymphocytes % 19.8 % (15.3-44.8); MPV 8.9 fL (7.6-11.3); RBC Red Blood Cell Count 5.28 M/uL (4.33-5.43)
[2019-12-06 14:39] LABS: Protime INR 1.08
[2019-12-06 14:56] LABS: ALT/SGPT 27 U/L (12-78); AST/SGOT 18 U/L (15-37); Albumin 3.6 g/dL (3.4-5.0); Alkaline Phosphatase 86 U/L (45-117); BUN Blood Urea Nitrogen 16 mg/dL (7-18); Bicarbonate 26 mmol/L (21-32); Bilirubin Direct 0.1 mg/dL (0-0.2); Bilirubin Total 0.4 mg/dL (0.2-1.0); Glucose Level 89 mg/dL (74-106); Magnesium 1.9 mg/dL (1.8-2.4); NT PRO-BNP 37 pg/mL (<125); Protein, Total 6.9 g/dL (6.4-8.2); Sodium Level 141 mmol/L (136-145)
--- NOTE | 2019-12-06 15:16 | EDPHYS ---
Physician Documentation [facility] Name: Ronny Peters Age: 64 yrs Sex: Male : 1955 Arrival Date: 12/06/2019 Time: 12:28 Bed 30 Private MD: [facility] ED Physician Nithin Brock HPI: 12/05 13:04 This 64 yrs old Male presents to ER via Ambulatory with complaints of pm1 worsening symptoms, COVID +. 13:04 The patient or guardian reports increased nasal congestion and wheezing. Patient denies pm1 any shortness of breath to me and PJ RN. Patient reports onset of symptoms a little over 7 days ago and was seen here on 12/03/2019 and swabbed for COVID which resulted positive. Patient reports that he was fine for the previous two days but today his nasal congestion increased and he had some wheezing. Severity of symptoms: in the emergency department the symptoms are actually worse. Associated signs and symptoms: Pertinent negatives: chest pain, diarrhea, ear ache, fever, sore throat, vomiting. The patient has been recently seen at the [facility] Emergency Department, for similar complaints labs were performed. Historical: - Allergies: 12:49 PENICILLINS; ss 12:49 popcorn shrimp; ss - PMHx: 12:49 Hypertension; Kidney stones; ss - PSHx: 12:49 Hernia repair; L4 L5 fusion; ss - Immunization history:: Adult Immunizations up to date. - Social history:: Smoking status: Patient denies any tobacco usage or history of. ROS: 13:04 Constitutional: Negative for fever, chills, and weight loss. pm1 13:04 Cardiovascular: Negative for chest pain, palpitations, and edema. 13:04 Abdomen/GI: Negative for abdominal pain, nausea, vomiting, diarrhea, and constipation, Back: Negative for injury and pain, MS/Extremity: Negative for injury and deformity, Skin: Negative for injury, rash, and discoloration, Neuro: Negative for headache, weakness, numbness, tingling, and seizure. 13:04 ENT: Positive for nasal discharge, sinus congestion, Negative for ear pain, sore throat, difficulty swallowing, difficulty handling secretions, hoarseness. 13:04 Respiratory: Positive for Wheezing related to post nasal drainage, Negative for cough, shortness of breath. Exam: 13:04 Constitutional: This is a well developed, well nourished patient who is awake, alert, pm1 and in no acute distress. Head/Face: Normocephalic, atraumatic. ENT: Nares patent. No nasal discharge, no septal abnormalities noted. Tympanic membranes are normal and external auditory canals are clear. Oropharynx with no redness, swelling, or masses, exudates, or evidence of obstruction, uvula midline. Mucous membranes moist. Neck: Trachea midline, no thyromegaly or masses palpated, and no cervical lymphadenopathy. Supple, full range of motion without nuchal rigidity, or vertebral point tenderness. No Meningismus. Chest/axilla: Normal chest wall appearance and motion. Nontender with no deformity. No lesions are appreciated. Cardiovascular: Regular rate and rhythm with a normal S1 and S2. No gallops, murmurs, or rubs. Normal PMI, no JVD. No pulse deficits. Respiratory: Lungs have equal breath sounds bilaterally, clear to auscultation and percussion. No rales, rhonchi or wheezes noted. No increased work of breathing, no retractions or nasal flaring. Abdomen/GI: Soft, non-tender, with normal bowel sounds. No distension or tympany. No guarding or rebound. No evidence of tenderness throughout. Back: No spinal tenderness. No costovertebral tenderness. Full range of motion. Skin: Warm, dry with normal turgor. Normal color with no rashes, no lesions, and no evidence of cellulitis. MS/ Extremity: Pulses equal, no cyanosis. Neurovascular intact. Full, normal range of motion. 13:04 Neuro: Exam negative for acute changes, Orientation: is normal, Mentation: is normal, Motor: is normal, moves all fours. Vital Signs: 12:45 BP 141 / 101; Resp 17; Temp 97.6(TE); Weight 63.5 kg; Height 5 ft. 4 in. (162.56 cm); ss Pain 0/10; 13:02 Pulse Ox 98% on R/A; jp3 14:34 BP 137 / 89; Pulse 61; Resp 18; Pulse Ox 98% on R/A; ph 15:30 BP 128 / 72; Pulse 67; Resp 18; Temp 97.9; Pulse Ox 99% on R/A; ph 12:45 Body Mass Index 24.03 (63.50 kg, 162.56 cm) ss MDM: 12:41 Patient medically screened. pm1 15:08 Data reviewed: vital signs. Data interpreted: Pulse oximetry: on room air is 98 %. pm1 Interpretation: normal. Counseling: I had a detailed discussion with the patient and/or guardian regarding: the historical points, exam findings, and any diagnostic results supporting the discharge/admit diagnosis, lab results, radiology results, the need for outpatient follow up, to return to the emergency department if symptoms worsen or persist or if there are any questions or concerns that arise at home. 15:14 ED course: Patient smokes 1 ppd. Patient with positive COVID-19 test result. Will cover pm1 patient with antibiotics as if COPD patient . 12/05 13:04 Order name: Basic Metabolic Panel; Complete Time: 15:07 pm12/05 13:04 Order name: CBC with Diff; Complete Time: 15:34 pm1 12/05 13:04 Order name: LFT's; Complete Time: 15:07 pm12/05 13:04 Order name: Magnesium; Complete Time: 15:07 pm12/05 13:04 Order name: NT PRO-BNP; Complete Time: 15:07 pm1 12/05 13:04 Order name: PT-INR; Complete Time: 14:55 pm12/05 13:04 Order name: Chest Single View XRAY; Complete Time: 14:34 pm1 12/05 13:04 Order name: EKG; Complete Time: 13:04 pm1 12/05 13:04 Order name: Cardiac monitoring; Complete Time: 14:33 pm12/05 13:04 Order name: EKG - Nurse/Tech; Complete Time: 14:33 pm12/05 13:04 Order name: Blood Culture Adult (2) pm1 12/05 15:24 Order name: Manual Differential; Complete Time: 15:34 EDMS 12/05 13:04 Order name: IV Saline Lock; Complete Time: 14:32 pm12/05 13:04 Order name: Labs collected and sent; Complete Time: 14:33 pm1 12/05 13:04 Order name: O2 Per Protocol; Complete Time: 13:06 pm12/05 13:04 Order name: O2 Sat Monitoring; Complete Time: 13:06 pm1 Administered Medications: 15:34 Not Given (Patient without allergy for PCN. Will give rocephin ): Zithromax 500 mg PO pm1 once 15:55 Drug: Rocephin 1 grams Route: IV; Rate: calculated rate; Site: left antecubital; ph 19:20 Follow up: Response: No adverse reaction; IV Status: Completed infusion ph Disposition: 12/06 07:31 Co-signature as Attending Physician, Nithin Brock MD I agree with the assessment and pia plan of care. Disposition: 12/06/19 15:11 Discharged to Home. Impression: Coronavirus infection, unspecified. - Condition is Stable. - Discharge Instructions: Steps to Quit Smoking, Smoking Hazards. - Prescriptions for Zithromax Z- Adam 250 mg Oral Tablet - take 1 tablet by ORAL route as directed for 5 days Day 1 - take two (2) tablets one time. Day 2, 3, 4 , 5 take one (1) tablet once daily.; 6 tablet. - Medication Reconciliation Form, Thank You Letter, Antibiotic Education, Prescription Opioid Use form. - Follow up: Emergency Department; When: As needed; Reason: Worsening of condition. Follow up: Private Physician; When: 2 - 3 days; Reason: Recheck today's complaints, Continuance of care, Re-evaluation by your physician. - Problem is new. - Symptoms have improved. Signatures: Dispatcher [employer] EDNithin Scott MD MD cha Smirch, Shelby, RN RN Snow Burnham RN RN ph Marinas, Patrick, CAM SALES PROJECT ADMINISTRATOR pm1 Corrections: (The following items were deleted from the chart) 12/05 16:09 15:11 12/06/2019 15:11 Discharged to Home. Impression: Coronavirus infection, ph unspecified. Condition is Stable. Forms are Medication Reconciliation Form, Thank You Letter, Antibiotic Education, Prescription Opioid Use. Follow up: Emergency Department; When: As needed; Reason: Worsening of condition. Follow up: Private Physician; When: 2 - 3 days; Reason: Recheck today's complaints, Continuance of care, Re-evaluation by your physician. Problem is new. Symptoms have improved. pm1
--- NOTE | 2019-12-06 15:16 | ER ---
Nurse's Notes [facility] Name: Ronny Peters Age: 64 yrs Sex: Male : 1955 Arrival Date: 12/06/2019 Time: 12:28 Bed 30 Private MD: Kirill Liriano Diagnosis: Coronavirus infection, unspecified Presentation: 12/05 12:45 Chief complaint: Patient states: Confirmed positive for Covid-19 3 days ago. Pt reports ss that he felt well the past two days, but this morning he noticed he had wheezing, mild shortness of breath and nasal congestion. Coronavirus screen: Surgical mask placed on patient. Patient moved to private room, placed in contact and droplet isolation with eye protection until further assessment. Known positive. Ebola Screen: Patient denies exposure to infectious person. Patient denies travel to an Ebola-affected area in the 21 days before illness onset. Initial Sepsis Screen: Does the patient meet any 2 criteria? No. Patient's initial sepsis screen is negative. Does the patient have a suspected source of infection? No. Patient's initial sepsis screen is negative. Risk Assessment: Do you want to hurt yourself or someone else? Patient reports no desire to harm self or others. 12:45 Method Of Arrival: Ambulatory ss 12:45 Acuity: LIANG 3 ss Historical: - Allergies: 12:49 PENICILLINS; ss 12:49 popcorn shrimp; ss - PMHx: 12:49 Hypertension; Kidney stones; ss - PSHx: 12:49 Hernia repair; L4 L5 fusion; ss - Immunization history:: Adult Immunizations up to date. - Social history:: Smoking status: Patient denies any tobacco usage or history of. Screenin:04 Abuse screen: Denies threats or abuse. Denies injuries from another. Nutritional ph screening: No deficits noted. Tuberculosis screening: No symptoms or risk factors identified. Fall Risk None identified. Assessment: 13:04 General: Appears in no apparent distress. comfortable, Behavior is calm, cooperative, ph appropriate for age. Pain: Denies pain. Neuro: Level of Consciousness is awake, alert, obeys commands, Oriented to person, place, time, situation. Cardiovascular: Capillary refill < 3 seconds in bilateral fingers Patient's skin is warm and dry. Respiratory: Reports shortness of breath this morning after smoking cigarette, denies at this time Airway is patent Respiratory effort is even, unlabored, Respiratory pattern is regular, symmetrical. GI: No signs and/or symptoms were reported involving the gastrointestinal system. EENT: Reports nasal congestion. Derm: Skin is intact, is healthy with good turgor, Skin is pink, warm \T\ dry. Musculoskeletal: Circulation, motion, and sensation intact. Range of motion: intact in all extremities. 14:00 Reassessment: Patient appears in no apparent distress at this time. Patient and/or ph family updated on plan of care and expected duration. Pain level reassessed. Patient is alert, oriented x 3, equal unlabored respirations, skin warm/dry/pink. 15:00 Reassessment: Patient appears in no apparent distress at this time. Patient and/or ph family updated on plan of care and expected duration. Pain level reassessed. Patient is alert, oriented x 3, equal unlabored respirations, skin warm/dry/pink. Vital Signs: 12:45 BP 141 / 101; Resp 17; Temp 97.6(TE); Weight 63.5 kg; Height 5 ft. 4 in. (162.56 cm); ss Pain 0/10; 13:02 Pulse Ox 98% on R/A; jp3 14:34 BP 137 / 89; Pulse 61; Resp 18; Pulse Ox 98% on R/A; ph 15:30 BP 128 / 72; Pulse 67; Resp 18; Temp 97.9; Pulse Ox 99% on R/A; ph 12:45 Body Mass Index 24.03 (63.50 kg, 162.56 cm) ED Course: 12:28 Patient arrived in ED. am2 12:28 Kirill Liriano DO is Private Physician. am2 12:41 Elroy Powell NP is PHCP. pm1 12:41 Nithin Brock MD is Attending Physician. pm1 12:49 Triage completed. ss 12:49 Arm band placed on right wrist. ss 13:03 Snow Miller, SABRINA is Primary Nurse. ph 13:06 Patient has correct armband on for positive identification. Bed in low position. Call ph light in reach. Side rails up X2. Pulse ox on. NIBP on. Door closed. Noise minimized. Droplet isolation initiated. 14:05 Chest Single View XRAY In Process Unspecified. EDMS 14:09 EKG done, by ED staff, reviewed by Elroy Powell NP. jp3 14:33 Initial lab(s) drawn, by me, sent to lab. Missed attempt(s): 20 gauge in left hand. ph Bleeding controlled, band aid applied, catheter tip intact. Inserted saline lock: 22 gauge in left antecubital area, using aseptic technique. Blood collected. 16:06 No provider procedures requiring assistance completed. IV discontinued, intact, ph bleeding controlled, No redness/swelling at site. Pressure dressing applied. Administered Medications: 15:34 Not Given (Patient without allergy for PCN. Will give rocephin ): Zithromax 500 mg PO pm1 once 15:55 Drug: Rocephin 1 grams Route: IV; Rate: calculated rate; Site: left antecubital; ph 19:20 Follow up: Response: No adverse reaction; IV Status: Completed infusion ph Outcome: 15:11 Discharge ordered by MD. pm1 16:06 Discharged to home ambulatory. ph 16:06 Condition: good 16:06 Discharge instructions given to patient, Instructed on discharge instructions, follow up and referral plans. medication usage, Demonstrated understanding of instructions, follow-up care, medications, Prescriptions given X 1. 16:09 Patient left the ED. ph Signatures: Dispatcher [employer] EDMS Trudi Hinton RN RN ss Hall, Patricia, RN RN ph Marinas, Patrick, NP BEADING INSTALLER pm1 Luna Fuller am2 Abisai Wilkes jp3
[2019-12-06 15:24] LABS: Blood Morphology Comment NOT SEEN (NOT SEEN); Platelet Estimate ADEQ
[2019-12-06] MEDS ORDERED: CEFTRIAXONE/SWI 1gm 1 GM/10 ML SYR ONE (15:50)
[2019-12-06 16:29] VITALS: TEMP 97.6
[2019-12-06 16:30] VITALS: O2SAT 98
[2019-12-06 16:32] VITALS: BP 137/89
--- NOTE | 2019-12-08 05:28 | EKG ---
Test Date: 2019-12-06 Test Time: 14:09:07 Teletype Or Varitype Keyboard Operator: PH MEASUREMENT RESULTS: Intervals: Rate: 65 [place]: 146 QRSD: 88 QT: 382 QTc: 397 [place]: P: 63 NJ: 146 QRS: 44 T: 58 INTERPRETIVE STATEMENTS: Normal sinus rhythm Cannot rule out Anterior infarct, age undetermined Abnormal ECG Compared to ECG 03/15/2012 06:45:42 Myocardial infarct finding now present Sinus arrhythmia no longer present Electronically Signed On 12-08-19 05:25:36 CDT by Cliff Trammell
== END 2019-12-06 16:09 | disposition home or self-care (01) ==
LOC: ER 12:26
DX: R09.81 Nasal congestion (principal); B97.29 Other coronavirus as the cause of diseases classified elsewhere; I10 Essential (primary) hypertension; F17.210 Nicotine dependence, cigarettes, uncomplicated; Z88.0 Allergy status to penicillin; Z91.013 Allergy to seafood
CPT/HCPCS: 96365; 93005; 87040 ×2; 85025; 80048; 36415; 83735; 85610; 80076; 83880; 71045; 99285; 96366; J0696

== ENCOUNTER 2019-12-14 21:47 | Emergency (ER) | payer OTHER ==
[2012-03-15 13:38] VITALS: BP 108/64
== END 2019-12-15 00:31 | disposition home or self-care (01) ==
LOC: ER 21:47
DX: R06.00 Dyspnea, unspecified (principal); I10 Essential (primary) hypertension; F17.210 Nicotine dependence, cigarettes, uncomplicated; Z88.0 Allergy status to penicillin; Z91.013 Allergy to seafood
CPT/HCPCS: 93005; 85025; 80048; 36415; 80076; 83690; 71045; 96360; 99284; J7030

== ENCOUNTER 2020-03-27 03:43 | Emergency (ER) | payer OTHER ==
--- OUTSIDE RECORDS SUMMARY | 2020-03-27 03:46 | XMS REPORT | Continuity of Care Document ---
:[address] [facility] t Address [address] [place] [address] Care Team Providers Name Role Phone Amrita Rodrigues MD Attending Clinician Problems Condition Condition Condition Status Onset Resolution Last Treating Co mments Source Name Details Category Date Date Treatment Clinician Date S/P S/P Problem Active [facility] laparoscop laparoscop Eleni kes - ic ic Memoria cholecyste cholecyste l ctomy ctomy Outpati ent Clinics Current Current Problem Active [facility] severe severe [facility] - episode of episode of Me moria major major l depressive depressive Ou tpati disorder disorder ent without without Clinics psychotic psychotic features features without without prior prior episode episode GERD GERD Problem Active [facility] without without [facility] - esophagiti esophagiti Me moria s s l Outpati ent Clinics Allergic Allergic Problem Active [facility] rhinitis, rhinitis, Luke s - unspecifie unspecifie Me moria d d l seasonalit seasonalit Ou tpati y, y, ent unspecifie unspecifie Cl inics d trigger d trigger Acute pain Acute pain Diagnosis Active [facility] of left of left [facility] - shoulder shoulder Memori a l Outpati ent Clinics Primary Primary Problem Active [facility] osteoarthr osteoarthr Eleni kes - itis, left itis, left Me moria shoulder shoulder l Outpati ent Clinics Impingemen Impingemen Diagnosis Active [facility] t t [facility] - syndrome, syndrome, Martell sandra shoulder, shoulder, l left left Outpati ent Clinics Allergies, Adverse Reactions, Alerts This patient has no known allergies or adverse reactions. Medications Ordered Filled Start Stop Current Ordering Indication Dosage Frequency Signature Comments Components Source Medication Medication Date Date Medication? Clinician (SIG) Name Name Meloxicam Meloxicam 2020- 2020- Yes Kirill [address] [facility] 7-02 07-17 Liriano as needed [facility] - 00:00: 00:00 for severe Memori a 00 :00 pain l Outpati ent Clinics [facility] 2018-09 Yes Kirill [address] [facility] HCl HCl 0-18 Liriano each [facility] - 00:00: nostril Memoria 00 l Outpati ent Clinics [facility] 2018-09 Yes Kirill [address] [facility] Sodium Sodium 0-18 Liriano [facility] - 00:00: Memoria 00 l Outpati ent Clinics Celexa Celexa Yes [facility]ill 1 tablet [facility] Omeprazole Omeprazole Yes Kirill [address] [facility] Liriano [facility] Procedures This patient has no known procedures. Encounters Start End Encounter Admission Attending Care Care Encounter Source Date/Time Date/Time Type Type Clinicians Facility Department ID 2020-03-15 2020-03-15 Outpatient Dickson Formant [id number] [facility] 13:00:00 13:00:00 t [facility] Outpati ent [facility] 2020-03-10 2020-03-10 [place] [id number] [facility] 09:29:00 09:29:00 t [facility] 2019-10-27 2019-11-04 Office Rodrigues, [facility] [phone] [id number] 14:59:06 16:07:07 Visit Amrita Schroeder [id number] [place] [id number] essio [id number] [address] 2019-10-02 2019-10-02 [place] [id number] [facility] 08:45:00 08:45:00 [facility] Medicine Outpati ent [facility] 2019-08-21 2019-08-21 [place] [id number] 15:52:00 15:52:00 t [facility] l Medicine Outpati ent Clinics 2019-06-26 2019-06-26 [place] [id number] [facility] 16:01:00 16:01:00 t [employer] s - [facility] l Medicine Outpati ent Clinics 2019-06-26 2019-06-26 [facility] [id number] [facility] 09:30:00 09:30:00 t [facility] [employer] s - [facility] l Medicine Outpati ent Clinics 2019-05-21 2019-05-21 [facility] [id number] 13[facility]00:00 13:00:00 t Zwe[facility]ie s - [facility] Medicine l Medicine Outpati ent Clinics 2019-02-23 2019-02-23 [place] [id number] [address] 08:30:00 08:30:00 t Zweemie s - [facility] l Medicine Outpati ent Clinics 2019-01-15 2019-01-15 [facility] [id number] 11:49:00 11:49:00 t Zwe[facility]ie s - [facility] Medicine Outpati ent Clinics 2019-01-07 2019-01-07 [facility] [id number] [facility] 11:00:00 11:00:00 t Zwe[facility]ie s - [facility] Medicine Outpati ent Clinics Results This patient has no known results.
--- OUTSIDE RECORDS SUMMARY | 2020-03-27 03:46 | XMS REPORT ---
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
--- OUTSIDE RECORDS SUMMARY | 2020-03-27 03:46 | XMS REPORT ---
:1955 Author Organization [employer] Care Team Providers Name Role Phone Kirill Liriano Provider Role Unavailable Allergies, Adverse Reactions, Alerts Substance Reaction Event Type N.K.D.A. 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 Medications Medication Code Code Instructions Start End Status Dosage System Date Date Celexa [facility] 65600507171 20 MG Orally Active 1 table t Once a day Azelastine HCl [facility] 22076093354 137 MCG/SPRAY Jun 26, Active 1 puff in Nasally Twice a 2018 each day nostril Omeprazole ND 81491864513 10 MG Orally Active 1 ca psule Once a day Meloxicam ND 87711222363 7.5 MG Orally March 10, Active 1 t ablet Once a day 2019 as needed for severe pain Montelukast ND 96776981743 10 MG Orally Jun 26, Active 1 t ablet Sodium Once a day 2018 Results No Known Results Summary Purpose [employer] Submission
[2020-03-27] MEDS ORDERED: DIPHENHYDRAMINE 25 MG TAB/CAP ONE (04:15)
[2020-03-27] MEDS ORDERED: predniSONE 20 MG TAB ONE (04:16)
--- NOTE | 2020-03-27 05:06 | EDPHYS ---
Physician Documentation [facility] Name: Sirena Peters Age: 64 yrs Sex: Male : 1955 Arrival Date: 03/27/2020 Time: 03:44 Bed 6 Private MD: Heri [facility] ED Physician Jimmy Voss HPI: 03/27 04:01 This 64 yrs old Male presents to ER via Ambulatory with complaints of Skin 7 Problem, Rash. 04:01 The patient's rash thought to be caused by an unknown cause. The rash is located on the mh7 body diffusely. The rash can be described as urticarial. Onset: The symptoms/episode began/occurred last night. Associated signs and symptoms: Pertinent positives: itching, Pertinent negatives: burning sensation, difficulty breathing, fever, nausea, Pain swelling of lips, swelling of throat, swelling of tongue, vomiting, wheezing. 04:05 Severity of symptoms: At their worst the symptoms were moderate today, in the emergency [facility] department the symptoms are unchanged. Historical: - Allergies: 03:46 PENICILLINS; sg 03:46 popcorn shrimp; sg - PMHx: 03:46 Hypertension; Kidney stones; sg - Immunization history:: Adult Immunizations unknown. - Social history:: Smoking status: unknown. ROS: 04:06 Constitutional: Negative for fever, chills, and weight loss, Eyes: Negative for injury, mh7 pain, redness, and discharge, ENT: Negative for injury, pain, and discharge, Neck: Negative for injury, pain, and swelling, Cardiovascular: Negative for chest pain, palpitations, and edema, Respiratory: Negative for shortness of breath, cough, wheezing, and pleuritic chest pain, Abdomen/GI: Negative for abdominal pain, nausea, vomiting, diarrhea, and constipation, Back: Negative for injury and pain, : Negative for injury, bleeding, discharge, and swelling, MS/Extremity: Negative for injury and deformity, Neuro: Negative for headache, weakness, numbness, tingling, and seizure, Psych: Negative for depression, anxiety, suicide ideation, homicidal ideation, and hallucinations, Allergy/Immunology: Negative for hives, rash, and allergies, Endocrine: Negative for neck swelling, polydipsia, polyuria, polyphagia, and marked weight changes, Hematologic/Lymphatic: Negative for swollen nodes, abnormal bleeding, and unusual bruising. Exam: 04:06 Constitutional: This is a well developed, well nourished patient who is awake, alert, mh7 and in no acute distress. Head/Face: Normocephalic, atraumatic. Eyes: Pupils equal round and reactive to light, extra-ocular motions intact. Lids and lashes normal. Conjunctiva and sclera are non-icteric and not injected. Cornea within normal limits. Periorbital areas with no swelling, redness, or edema. ENT: Nares patent. No nasal discharge, no septal abnormalities noted. Tympanic membranes are normal and external auditory canals are clear. Oropharynx with no redness, swelling, or masses, exudates, or evidence of obstruction, uvula midline. Mucous membranes moist. Neck: Trachea midline, no thyromegaly or masses palpated, and no cervical lymphadenopathy. Supple, full range of motion without nuchal rigidity, or vertebral point tenderness. No Meningismus. Chest/axilla: Normal chest wall appearance and motion. Nontender with no deformity. No lesions are appreciated. Cardiovascular: Regular rate and rhythm with a normal S1 and S2. No gallops, murmurs, or rubs. Normal PMI, no JVD. No pulse deficits. Respiratory: Lungs have equal breath sounds bilaterally, clear to auscultation and percussion. No rales, rhonchi or wheezes noted. No increased work of breathing, no retractions or nasal flaring. Abdomen/GI: Soft, non-tender, with normal bowel sounds. No distension or tympany. No guarding or rebound. No evidence of tenderness throughout. Back: No spinal tenderness. No costovertebral tenderness. Full range of motion. 04:06 MS/ Extremity: Pulses equal, no cyanosis. Neurovascular intact. Full, normal range of motion. Neuro: Awake and alert, GCS 15, oriented to person, place, time, and situation. Cranial nerves II-XII grossly intact. Motor strength 5/5 in all extremities. Sensory grossly intact. Cerebellar exam normal. Normal gait. Psych: Awake, alert, with orientation to person, place and time. Behavior, mood, and affect are within normal limits. 04:06 Skin: urticaria, and is diffusely located. Vital Signs: 04:02 BP 159 / 94; Pulse 67; Resp 16; Temp 98.4(O); Pulse Ox 100% on R/A; Weight 65.77 kg jb4 (R); Height 5 ft. 3 in. (160.02 cm); Pain 7/10; 05:25 BP 145 / 86; Pulse 66; Resp 16; Temp 98; Pulse Ox 99% on R/A; rv 04:02 Body Mass Index 25.68 (65.77 kg, 160.02 cm) jb4 MDM: 04:01 Patient medically screened. mh7 05:03 Differential diagnosis: impetigo, allergic reaction, Urticaria, Non specific mh7 Dermatitis. Data reviewed: vital signs, nurses notes. Data interpreted: Pulse oximetry: on room air is 100 %. Interpretation: normal. Counseling: I had a detailed discussion with the patient and/or guardian regarding: the historical points, exam findings, and any diagnostic results supporting the discharge/admit diagnosis, the presence of at least one elevated blood pressure reading (>120/80) during this emergency department visit, the need for outpatient follow up, to return to the emergency department if symptoms worsen or persist or if there are any questions or concerns that arise at home. Response to treatment: the patient's symptoms have markedly improved after treatment. Administered Medications: 04:12 Drug: Benadryl 50 mg Route: PO; 4 05:26 Follow up: Response: No adverse reaction; Marked relief of symptoms rv 04:12 Drug: predniSONE 60 mg Route: PO; jb4 05:26 Follow up: Response: No adverse reaction; Marked relief of symptoms rv 04:12 Not Given (Medication is unavailable at this time. Provider notified.): Pepcid 20 mg PO 4 once Disposition: 03/27/20 05:05 Discharged to Home. Impression: Urticaria, unspecified. - Condition is Stable. - Discharge Instructions: Hives, [id number], Allergies, Qbob-la-Sdxw. - Prescriptions for Benadryl 25 mg Oral Capsule - take 2 capsule by ORAL route every 6 hours As needed; 30 tablet. Pepcid 20 mg Oral Tablet - take 1 tablet by ORAL route every 12 hours for 5 days; 10 tablet. Prednisone 20 mg Oral Tablet - take 2 tablet by ORAL route once daily for 5 days; 10 tablet. - Medication Reconciliation Form, Thank You Letter, Antibiotic Education, Prescription Opioid Use form. - Follow up: Private Physician; When: 1 - 2 days; Reason: Worsening of condition, Recheck today's complaints, Continuance of care, Re-evaluation by your physician. Follow up: Stepan Phoenix MD; When: 1 - 2 days; Reason: Worsening of condition, Recheck today's complaints. - Problem is new. - Symptoms have improved. Signatures: Gabo Campbell RN RN sg Sunny Baires RN RN jb4 Boyd Abebe RN RN rv Jimmy Voss MD MD mh7 Corrections: (The following items were deleted from the chart) 05:26 05:05 03/27/2020 05:05 Discharged to Home. Impression: Urticaria, unspecified. rv Condition is Stable. Forms are Medication Reconciliation Form, Thank You Letter, Antibiotic Education, Prescription Opioid Use. Follow up: Private Physician; When: 1 - 2 days; Reason: Worsening of condition, Recheck today's complaints, Continuance of care, Re-evaluation by your physician. Follow up: Stepan Phoenix; When: 1 - 2 days; Reason: Worsening of condition, Recheck today's complaints. Problem is new. Symptoms have improved. mh7
--- NOTE | 2020-03-27 05:06 | ER ---
Nurse's Notes [facility] Name: Sirena Peters Age: 64 yrs Sex: Male : 1955 Arrival Date: 03/27/2020 Time: 03:44 Bed 6 Private MD: Kirill Liriano Diagnosis: Urticaria, unspecified Presentation: 03/27 03:46 Acuity: LIANG 4 sg 03:46 Chief complaint: Patient states: I got a rash to the bilateral arms and to the face, sg reports red and itchy, denies N/V/D/Fever. Coronavirus screen: Patient denies a cough. Patient denies shortness of breath or difficulty breathing. Patient denies measured and/or subjective temperature greater than 100.4F prior to today's visit. Patient denies travel on a cruise ship or to a country the [facility] currently lists as an affected area. Patient denies contact with known and/or suspected case of COVID-19. Ebola Screen: Patient negative for fever greater than or equal to 101.5 degrees Fahrenheit, and additional compatible Ebola Virus Disease symptoms Patient denies exposure to infectious person. Patient denies travel to an Ebola-affected area in the 21 days before illness onset. No symptoms or risks identified at this time. Initial Sepsis Screen: Does the patient meet any 2 criteria? No. Patient's initial sepsis screen is negative. Does the patient have a suspected source of infection? No. Patient's initial sepsis screen is negative. Risk Assessment: Do you want to hurt yourself or someone else? Patient reports no desire to harm self or others. Onset of symptoms was March 27, 2020. Care prior to arrival: None. Transition of care: patient was not received from another setting of care. 03:46 Method Of Arrival: Ambulatory sg Historical: - Allergies: 03:46 PENICILLINS; sg 03:46 popcorn shrimp; sg - PMHx: 03:46 Hypertension; Kidney stones; sg - Immunization history:: Adult Immunizations unknown. - Social history:: Smoking status: unknown. Screenin:58 Abuse screen: Denies threats or abuse. Nutritional screening: No deficits noted. jb4 Tuberculosis screening: No symptoms or risk factors identified. Fall Risk None identified. Assessment: 03:58 General: Appears in no apparent distress. comfortable, Behavior is calm, cooperative, jb4 appropriate for age. Pain: Complains of pain in back, chest, abdomen, pelvis, right arm and left arm Pain does not radiate. Pain currently is 7 out of 10 on a pain scale. Quality of pain is described as burning, itching Pain began 0 yesterday. Neuro: Level of Consciousness is awake, alert, obeys commands, Oriented to person, place, time, situation. Cardiovascular: Patient's skin is warm and dry. Respiratory: Airway is patent Respiratory effort is even, unlabored, Respiratory pattern is regular, symmetrical. GI: No signs and/or symptoms were reported involving the gastrointestinal system. : No signs and/or symptoms were reported regarding the genitourinary system. EENT: No signs and/or symptoms were reported regarding the EENT system. Derm: Skin is intact, Skin is pink, warm \T\ dry. Rash noted that is itchy, red, raised, urticaria, on back, abdomen, pelvis, right arm and left arm. Musculoskeletal: Circulation, motion, and sensation intact. Range of motion: intact in all extremities. Vital Signs: 04:02 BP 159 / 94; Pulse 67; Resp 16; Temp 98.4(O); Pulse Ox 100% on R/A; Weight 65.77 kg jb4 (R); Height 5 ft. 3 in. (160.02 cm); Pain 7/10; 05:25 BP 145 / 86; Pulse 66; Resp 16; Temp 98; Pulse Ox 99% on R/A; rv 04:02 Body Mass Index 25.68 (65.77 kg, 160.02 cm) jb4 ED Course: 03:44 Patient arrived in ED. do 03:44 Kirill Liriano, is Private Physician. do 03:46 Triage completed. sg 03:46 Arm band placed on. sg 03:49 Jimmy Voss MD is Attending Physician. mh7 03:52 Boyd Abebe, RN is Primary Nurse. rv 03:58 Sunny Baires, SABRINA is Primary Nurse. jb4 03:58 Patient has correct armband on for positive identification. Bed in low position. Call jb4 light in reach. Side rails up X 1. Pulse ox on. NIBP on. 04:23 No provider procedures requiring assistance completed. Patient did not have IV access jb4 during this emergency room visit. 05:04 Stepan Phoenix MD is Referral Physician. mh7 Administered Medications: 04:12 Drug: Benadryl 50 mg Route: PO; jb4 05:26 Follow up: Response: No adverse reaction; Marked relief of symptoms rv 04:12 Drug: predniSONE 60 mg Route: PO; jb4 05:26 Follow up: Response: No adverse reaction; Marked relief of symptoms rv 04:12 Not Given (Medication is unavailable at this time. Provider notified.): Pepcid 20 mg PO jb4 once Outcome: 05:05 Discharge ordered by . sal 05:25 Discharged to home ambulatory. rv 05:25 Condition: good 05:25 Discharge instructions given to patient, Instructed on discharge instructions, follow up and referral plans. medication usage, Demonstrated understanding of instructions, follow-up care, medications, Prescriptions given X 3. 05:26 Patient left the ED. rv Signatures: Gabo Campbell RN RN Macie Montilla James, RN RN [facility] Boyd Abebe RN RN Jimmy Voss MD MD 7 Corrections: (The following items were deleted from the chart) 04:03 03:58 Pain: Denies pain. jb4 jb4 04:12 04:02 Pulse 67bpm; Resp 16bpm; Pulse Ox 100% RA; Temp 98.4F Oral; 65.77 kg Reported; jb4 Height 5 ft. 3 in.; BMI: 25.6; Pain 7/10; jb4
[2020-03-27 05:34] VITALS: BP 145/86; TEMP 98; O2SAT 99
== END 2020-03-27 05:26 | disposition home or self-care (01) ==
LOC: ER 03:43
DX: L50.9 Urticaria, unspecified (principal); I10 Essential (primary) hypertension; Z88.0 Allergy status to penicillin; Z91.013 Allergy to seafood
CPT/HCPCS: 99283; J7512

== ENCOUNTER 2020-12-05 07:42 | Emergency (ER) | payer MEDICARE ==
--- OUTSIDE RECORDS SUMMARY | 2020-12-05 07:45 | XMS REPORT | Continuity of Care Document ---
:1955 Author Organization [facility] t Address [address] [place] [address] Care Team Providers Name Role Phone Amrita Rodrigues MD Attending Clinician Problems This patient has no known problems. Allergies, Adverse Reactions, Alerts This patient has no known allergies or adverse reactions. Medications Ordered Filled Start Stop Current Ordering Indication Dosage Frequency Signature Comments Components Source Medication Medication Date Date Medication? Clinician (SIG) Name Name Meloxicam Meloxicam 2020-0 2020- No Kirill [address] [facility] 7-02 07-17 [facility] as [facility]09 Yes Kirill [address] [facility] HCl HCl 0-18 L[facility]iano each [facility] nostril [facility] 2018-09 Yes Kirill [address] [facility] Sodium Sodium 0-18 L[facility]iano [facility] Celexa Celexa Yes Kirill [facility] Omeprazole Omeprazole Yes Kirill [address] [facility] Procedures This patient has no known procedures. Encounters Start End Encounter Admission Attending Care Care Encounter Source Date/Time Date/Time Type Type Clinicians Facility Department ID 2020-12-01 2020-12-01 Out[facility] [id number] [facility] 2020-11-29 2020-11-29 [facility] [id number] [facility] 2020-11-24 2020-11-24 Out[facility] [id number] [facility] 2020-09-27 2020-09-27 Out[facility] [id number] [facility] 2020-09-26 2020-09-26 Out[facility] [id number] [facility] 2020-09-22 2020-09-22 Out[facility] [id number] [facility] 2020-09-22 2020-09-22 Out[facility] [id number] [facility] 2020-08-29 2020-08-29 Out[facility] [id number] [facility] 2020-08-26 2020-08-26 Out[facility] [id number] [facility] 2020-08-24 2020-08-24 Out[facility] [id number] [facility] 2020-05-18 2020-05-18 [facility] [id number] 13[facility]10[facility]00 13:10:00 [facility] 2020-05-18 2020-05-18 [facility] [id number] 13:00:00 13:00:00 [facility] Clin[facility] 2020-03-15 2020-03-15 [facility] [id number] 13:00:00 13:00:00 t [facility] 2020-03-10 2020-03-10 [facility] [id number] 09:29:00 09:29:00 t [facility] Clin[facility] 2019-10-27 2019-11-04 Office Ravi [facility] [id number] 14:59:06 16:07:07 Visit Amrita Schroeder [id number] [place] [id number] [facility] [id number] [address] 2019-10-02 2019-10-02 [facility] [id number] 08:45:00 08:45:00 t [facility] Outpat[facility] Clin[facility] 2019-08-21 2019-08-21 [facility] [id number] 15:52:00 15:52:00 t [facility] Clin[facility] 2019-06-26 2019-06-26 [facility] [id number] 16:01:00 16:01:00 t [facility] Outpat[facility] Clin[facility] 2019-06-26 2019-06-26 [facility] [id number] 09:30:00 09:30:00 t [facility] Out[facility] Clin[facility] 2019-05-21 2019-05-21 [facility] [id number] 13:00:00 13:00:00 t [facility] 2019-02-23 2019-02-23 [facility] [id number] 08:30:00 08:30:00 t [facility] Out[facility] Clinics 2019-01-15 2019-01-15 [facility] [id number] 11:49:00 11:49:00 t [facility] 2019-01-07 2019-01-07 [facility] [id number] 11:00:00 11:00:00 t [facility] Results This patient has no known results.
[2020-12-05 11:14] LABS: Hematocrit 45.8 % (39.6-49.0); RBC Red Blood Cell Count 5.23 M/uL (4.33-5.43)
[2020-12-05 11:15] LABS: Absolute Lymphocytes (CBC) 1.4 K/uL (0.7-4.9); Basophils % 1.2 % (0-1.3); Lymphocytes % 18.4 % (15.3-44.8); MPV 8.8 fL (7.6-11.3); Protime INR 1.03
[2020-12-05 11:30] LABS: ALT/SGPT 34 U/L (12-78); AST/SGOT 17 U/L (15-37); Albumin 3.6 g/dL (3.4-5.0); Alkaline Phosphatase 78 U/L (45-117); BUN Blood Urea Nitrogen 16 mg/dL (7-18); Bicarbonate 29 mmol/L (21-32); Bilirubin Direct 0.2 mg/dL (0-0.2); Bilirubin Total 0.7 mg/dL (0.2-1.0); Glucose Level 92 mg/dL (74-106); NT PRO-BNP 33 pg/mL (<125); Protein, Total 6.8 g/dL (6.4-8.2); Sodium Level 142 mmol/L (136-145); Troponin (Emerg Dept Use Only) < 0.02 ng/mL (0.0-0.045)
--- NOTE | 2020-12-05 11:36 | RAD REPORT ---
EXAM DESCRIPTION: RAD - Chest Single View - 12/05/2020 11:22 am CLINICAL HISTORY: CHEST PAIN, intermittent hypertension COMPARISON: December 2019 TECHNIQUE: AP portable chest image was obtained 12/05/2020 11:22 am . FINDINGS: No focal mass, infiltrate, failure or volume overload pattern. Interstitial pattern is mil dly prominent but not clearly different from comparison. Heart and vasculature are normal. No measurable pleural effusion and no pneumothorax. No acute bony abnormality seen. No acute aortic findings suspected. IMPRESSION: No acute cardiopulmonary process. No significant change from comparison study.
--- NOTE | 2020-12-05 12:00 | ER ---
Nurse's Notes [facility] Name: Sirena Peters Age: 65 yrs Sex: Male : 1955 Arrival Date: 12/05/2020 Time: 07:44 Bed 24 Private MD: Kirill Liriano Diagnosis: Essential (primary) hypertension;Conjunctival hemorrhage, left eye Presentation: 12/05 08:09 Chief complaint: Patient states: BP is going up and down, BP was up to 186 last Saturday, iw as the day goes on he starts feeling fatigued , saw Dr. Liriano on Saturday and was prescribed losartan and citalopram. Coronavirus screen: At this time, the client does not indicate any symptoms associated with coronavirus-19. Ebola Screen: Patient negative for fever greater than or equal to 101.5 degrees Fahrenheit, and additional compatible Ebola Virus Disease symptoms Patient denies exposure to infectious person. Patient denies travel to an Ebola-affected area in the 21 days before illness onset. No symptoms or risks identified at this time. Initial Sepsis Screen: Does the patient meet any 2 criteria? No. Patient's initial sepsis screen is negative. Does the patient have a suspected source of infection? No. Patient's initial sepsis screen is negative. Risk Assessment: Do you want to hurt yourself or someone else? Patient reports no desire to harm self or others. Onset of symptoms was November 28, 2020. 08:09 Method Of Arrival: Ambulatory iw 08:09 Acuity: LIANG 3 iw Historical: - Allergies: 08:15 PENICILLINS; iw 08:15 popcorn shrimp; iw - Home Meds: 08:18 enalapril maleate 10 mg Oral tab 1 tab once daily [Active]; losartan 25 mg oral tab 1 iw tab once daily [Active]; cyclobenzaprine 10 mg Oral tab nightly [Active]; citalopram 20 mg tab 1 tab once daily [Active]; - PMHx: 08:15 Hypertension; Kidney stones; iw - PSHx: 08:15 L4 -L5; Cholecystectomy; Hernia repair; iw - Immunization history:: Adult Immunizations not up to date. - Social history:: Smoking status: . Screenin:30 Abuse screen: Denies threats or abuse. Denies injuries from another. Nutritional iw screening: No deficits noted. Tuberculosis screening: No symptoms or risk factors identified. Fall Risk None identified. Assessment: 10:29 General: Appears in no apparent distress. Behavior is calm, cooperative. Pain: iw Complains of pain in forehead and left sabianist. Neuro: Level of Consciousness is awake, alert, obeys commands, Oriented to person, place, time, situation, Moves all extremities. Full function. Neuro: Reports headache. Cardiovascular: Patient's skin is warm and dry. Respiratory: Respiratory effort is even, unlabored. GI: No signs and/or symptoms were reported involving the gastrointestinal system. Derm: Skin is intact, is healthy with good turgor. Musculoskeletal: Range of motion: intact in all extremities. 11:30 Reassessment: Patient appears in no apparent distress at this time. Patient and/or iw family updated on plan of care and expected duration. Pain level reassessed. Patient is alert, oriented x 3, equal unlabored respirations, skin warm/dry/pink. Vital Signs: 08:09 BP 140 / 78; Pulse 64; Resp 16; Temp 98.4; Pulse Ox 98% on R/A; iw 10:29 BP 156 / 74; Pulse 56; Resp 16; Pulse Ox 100% on R/A; iw 11:44 BP 165 / 80; Pulse 58; Resp 16; Pulse Ox 98% on R/A; iw ED Course: 07:44 Patient arrived in ED. as 07:44 Lakhwinder Liriano MD is Private Physician. as 07:44 Kirill Liriano DO is Private Physician. as 08:12 Triage completed. iw 08:16 Arm band placed on. iw 10:29 Alem Garcia, SABRINA is Primary Nurse. iw 10:30 Patient has correct armband on for positive identification. iw 10:44 Elroy Powell NP is PHCP. pm1 10:44 Fede Chase MD is Attending Physician. pm1 11:02 [facility] on. Pulse ox on. NIBP on. sr5 11:02 Initial lab(s) drawn, by me, by EMS personnel. EKG done, by ED staff, reviewed by theodore Chase MD. Inserted saline lock: 20 gauge in left antecubital area, using aseptic technique. Blood collected. 11:22 XRAY Chest (1 view) In Process Unspecified. EDMS 11:59 Kirill Liriano DO is Referral Physician. pm1 12:14 No provider procedures requiring assistance completed. IV discontinued, intact, iw bleeding controlled, No redness/swelling at site. Pressure dressing applied. Administered Medications: No medications were administered Outcome: 12:00 Discharge ordered by MD. pm1 12:14 Discharged to home ambulatory. iw 12:14 Condition: good 12:14 Discharge instructions given to patient, Instructed on discharge instructions, follow up and referral plans. Demonstrated understanding of instructions, follow-up care. 12:15 Patient left the ED. iw Signatures: Dispatcher [employer] Kati Carrera Irene, RN RN iw Elroy Powell NP [employer] pm1 Khris Bosch RN RN sr5
--- NOTE | 2020-12-05 12:00 | EDPHYS ---
Physician Documentation [facility] Name: Sirena Peters Age: 65 yrs Sex: Male : 1955 Arrival Date: 12/05/2020 Time: 07:44 Bed 24 Private MD: [facility] ED Physician Fede Chase HPI: 12/05 11:03 This 65 yrs old Male presents to ER via Ambulatory with complaints of High pm1 Blood Pressure. 11:03 The patient has elevated blood pressure and discovered this at home, with a home pm1 device. Onset: The symptoms/episode began/occurred 1 month(s) ago. Modifying factors: The symptoms are alleviated by improved with blood pressure medications prescribed by PCP, but they are making him sleepy and fatigued. Associated signs and symptoms: Pertinent negatives: chest pain, nausea, vomiting. Severity of symptoms: in the emergency department the blood pressure is improved. The patient has been recently seen by a physician: the patient's primary care provider, with similar presenting complaints, losartan was changed to enalapril . Has had left shoulder and back pain for the past 2 weeks that is being treated with flexeril. Historical: - Allergies: 08:15 PENICILLINS; iw 08:15 popcorn shrimp; iw - Home Meds: 08:18 enalapril maleate 10 mg Oral tab 1 tab once daily [Active]; losartan 25 mg oral tab 1 iw tab once daily [Active]; cyclobenzaprine 10 mg Oral tab nightly [Active]; citalopram 20 mg tab 1 tab once daily [Active]; - PMHx: 08:15 Hypertension; Kidney stones; iw - PSHx: 08:15 L4 -L5; Cholecystectomy; Hernia repair; iw - Immunization history:: Adult Immunizations not up to date. - Social history:: Smoking status: . ROS: 11:03 Neck: Negative for injury, pain, and swelling, Cardiovascular: Negative for chest pain, pm1 palpitations, and edema, Respiratory: Negative for shortness of breath, cough, wheezing, and pleuritic chest pain, Abdomen/GI: Negative for abdominal pain, nausea, vomiting, diarrhea, and constipation, Back: Negative for injury and pain, Skin: Negative for injury, rash, and discoloration, Neuro: Negative for headache, weakness, numbness, tingling, and seizure. 11:03 Constitutional: Positive for fatigue, with blood pressure medications, Negative for fever, poor PO intake. 11:03 Eyes: Positive for redness, of the outer aspect of conjuctiva of left eye, Negative for discharge, pain, visual disturbance. Exam: 11:03 Constitutional: This is a well developed, well nourished patient who is awake, alert, pm1 and in no acute distress. Head/Face: Normocephalic, atraumatic. 11:03 Back: No spinal tenderness. No costovertebral tenderness. Full range of motion. Skin: Warm, dry with normal turgor. Normal color with no rashes, no lesions, and no evidence of cellulitis. MS/ Extremity: Pulses equal, no cyanosis. Neurovascular intact. Full, normal range of motion. 11:03 Eyes: Periorbital structures: appear normal, Pupils: no acute changes, Extraocular movements: no acute changes, Conjunctiva: subconjunctival hemorrhage(s), seen in the left eye, at 3 o'clock. 11:03 Cardiovascular: Exam negative for acute changes, Rate: normal, Rhythm: regular, Pulses: no pulse deficits are appreciated, Heart sounds: normal, normal S1and S2. 11:03 Respiratory: Exam negative for acute changes, respiratory distress, shortness of breath, Breath sounds: are clear throughout. 11:03 Neuro: Exam negative for acute changes, Orientation: is normal, Mentation: is normal, Motor: is normal, moves all fours, Sensation: is normal, no obvious gross deficits. Vital Signs: 08:09 BP 140 / 78; Pulse 64; Resp 16; Temp 98.4; Pulse Ox 98% on R/A; iw 10:29 BP 156 / 74; Pulse 56; Resp 16; Pulse Ox 100% on R/A; iw 11:44 BP 165 / 80; Pulse 58; Resp 16; Pulse Ox 98% on R/A; iw MDM: 10:44 Patient medically screened. pm1 11:42 Data reviewed: vital signs. Data interpreted: Pulse oximetry: on room air is 100 %. pm1 Interpretation: normal. 11:59 Counseling: I had a detailed discussion with the patient and/or guardian regarding: the pm1 historical points, exam findings, and any diagnostic results supporting the discharge/admit diagnosis, lab results, radiology results, the need for outpatient follow up, to return to the emergency department if symptoms worsen or persist or if there are any questions or concerns that arise at home. 12/05 10:51 Order name: Basic Metabolic Panel; Complete Time: 11:41 pm12/05 10:51 Order name: CBC with Diff; Complete Time: 11:23 pm12/05 10:51 Order name: LFT's; Complete Time: 11: pm12/05 10:51 Order name: Magnesium; Complete Time: 11: pm12/05 10:51 Order name: NT PRO-BNP; Complete Time: 11: pm12/05 10:51 Order name: PT-INR; Complete Time: 11: pm12/05 10:51 Order name: Troponin (emerg Dept Use Only); Complete Time: 11: pm12/05 10:51 Order name: XRAY Chest (1 view); Complete Time: 11: pm12/05 10:51 Order name: EKG; Complete Time: 10: pm12/05 10:51 Order name: Cardiac monitoring; Complete Time: 11: pm12/05 10:51 Order name: EKG - Nurse/Tech; Complete Time: 11: pm12/05 10:51 Order name: IV Saline Lock; Complete Time: 11: pm12/05 10:51 Order name: Labs collected and sent; Complete Time: 11: pm12/05 10:51 Order name: O2 Per Protocol; Complete Time: 11: pm12/05 10:51 Order name: O2 Sat Monitoring; Complete Time: 11: pm1 Administered Medications: No medications were administered Disposition: 12/05/20 12:00 Discharged to Home. Impression: Essential (primary) hypertension, Conjunctival hemorrhage, left eye. - Condition is Stable. - Discharge Instructions: Hypertension, Subconjunctival Hemorrhage, How to Take Your Blood Pressure, [id number], DASH Eating Plan, Managing Your Hypertension. - Medication Reconciliation Form, Thank You Letter, Antibiotic Education, Prescription Opioid Use form. - Follow up: Emergency Department; When: As needed; Reason: Worsening of condition. Follow up: Kirill Liriano, ; When: 2 - 3 days; Reason: Recheck today's complaints, Continuance of care, Re-evaluation by your physician. - Problem is new. - Symptoms have improved. Addendum: 12/06/2020 18:35 Co-signature as Attending Physician, Fede Chase MD. m a2 Signatures: Dispatcher [employer] Alem Mancilla, RN RN Elroy Frederick, SAUSAGE MAKER SAUSAGE MAKER pm1 Fede Chase, MD OROSCO ma2 Corrections: (The following items were deleted from the chart) 12/05 12:15 12:00 12/05/2020 12:00 Discharged to Home. Impression: Essential (primary) iw hypertension; Conjunctival hemorrhage, left eye. Condition is Stable. Forms are Medication Reconciliation Form, Thank You Letter, Antibiotic Education, Prescription Opioid Use. Follow up: Emergency Department; When: As needed; Reason: Worsening of condition. Follow up: Kirill Liriano; When: 2 - 3 days; Reason: Recheck today's complaints, Continuance of care, Re-evaluation by your physician. Problem is new. Symptoms have improved. pm1
[2020-12-05 12:35] VITALS: TEMP 98.4
[2020-12-05 12:38] VITALS: BP 165/80; O2SAT 98
--- NOTE | 2020-12-06 12:56 | EKG ---
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
== END 2020-12-05 12:15 | disposition home or self-care (01) ==
LOC: ER 07:42
DX: I10 Essential (primary) hypertension (principal); H11.32 Conjunctival hemorrhage, left eye; Z88.0 Allergy status to penicillin; Z91.013 Allergy to seafood
CPT/HCPCS: 36415; 71045; 80048; 80076; 83735; 83880; 84484; 85025; 85610; 93005; 99284

== ENCOUNTER 2021-01-12 10:24 | Emergency (ER) | payer MEDICARE ==
--- OUTSIDE RECORDS SUMMARY | 2021-01-12 10:27 | XMS REPORT | Continuity of Care Document ---
:1955 Author Organization [facility] t Address [address] [place] [address] Care Team Providers Name Role Phone Amrita [...] 00 :00 [facility] 2018-09 Yes Kirill [address] [facility] HCl HCl 0-18 L[facility]iano each [facility] 2018-09 Yes Kirill [address] [facility] Sodium Sodium 0-18 Liriano [facility] Celexa Celexa Yes Kirill [facility] Omeprazole Omeprazole Yes Kirill [address] [facility] Procedures This patient has no known procedures. Encounters Start End Encounter Admission Attending Care Care Encounter Source Date/Time Date/Time Type Type Clinicians Facility Department ID 2020-12-13 2020-12-13 [facility] [id number] 2020-12-07 2020-12-07 [facility] [id number] [facility] 2020-12-01 2020-12-01 [facility] [id number] [facility] 2020-11-29 2020-11-29 [facility] [id number] [facility] 2020-11-24 2020-11-24 [facility] [id number] [facility] 2020-09-27 2020-09-27 [facility] [id number] [facility] 2020-09-26 2020-09-26 [facility] [id number] [facility] 2020-09-22 2020-09-22 [facility] [id number] [facility] 2020-09-22 2020-09-22 [facility] [id number] [facility] 2020-08-29 2020-08-29 [facility] [id number] [facility] 2020-08-26 2020-08-26 [facility] [id number] [facility] 2020-08-24 2020-08-24 [facility] [id number] [facility] 2020-05-18 2020-05-18 [facility] [id number] [facility] 13:10:00 13:10:00 [place] [facility] - [facility] Outpati ent Clinics 2020-05-18 2020-05-18 [facility] [id number] 13:00:00 13:00:00 t [place] [employer] s - [employer] [facility] Outpat[facility] Clinics 2020-03-15 2020-03-15 [facility] [id number] [address] 13:00:00 13:00:00 t [place] [employer] s - [employer] [facility] Clin[facility] 2020-03-10 2020-03-10 [facility] [id number] 09:29:00 09:29:00 t [employer] s - [employer] [facility] Medicine Outpati ent Clinics 2019-10-27 2019-11-04 Office [facility] [id number] 14:59:06 16:07:07 Visit Amrita Schroeder [id number] [place] [id number] [facility] [id number] [address] 2019-10-02 2019-10-02 [facility] [id number] [address] 08:45:00 08:45:00 t [place] [employer] s - [employer] [facility] Outpat[facility] ent Clinics 2019-08-21 2019-08-21 [facility] [id number] 15:52:00 15:52:00 t [place] [employer] s - [employer] [facility] Outpat[facility] ent Clinics 2019-06-26 2019-06-26 [facility] [id number] 16:01:00 16:01:00 t [place] [employer] s - [employer] [facility] Outpati ent Clinics 2019-06-26 2019-06-26 [facility] [id number] 09:30:00 09:30:00 t [employer] [facility] Outpati ent Clin[facility] 2019-05-21 2019-05-21 [facility] [id number] 13:00:00 13:00:00 t [employer] [facility] Clin[facility] 2019-02-23 2019-02-23 [facility] [id number] 08:30:00 08:30:00 t [employer] [facility] Clin[facility] 2019-01-15 2019-01-15 [facility] [id number] 11:49:00 11:49:00 t [employer] [facility] 2019-01-07 2019-01-07 [facility] [id number] 11:00:00 11:00:00 t [employer] [facility] Results This patient has no known results.
[2021-01-12] MEDS ORDERED: HYDROCODONE/APAP 10/325 TAB ONE (11:14)
[2021-01-12] MEDS ORDERED: KETOROLAC 30 MG/ML INJ ONE (11:46)
--- NOTE | 2021-01-12 11:54 | RAD REPORT ---
EXAM DESCRIPTION: RAD - Foot Left 3 View - 01/12/2021 11:48 am CLINICAL HISTORY: foot pain Foot pain and toe pain COMPARISON: No comparisons FINDINGS: Moderate plantar calcaneal spur is present. No acute fracture or dislocation.
--- NOTE | 2021-01-12 12:07 | EDPHYS ---
Physician Documentation [facility] Name: Sirena Peters Age: 65 yrs Sex: Male : 1955 Arrival Date: 01/12/2021 Time: 10:26 Bed 6 Private MD: Kirill Liriano ED Physician Nithin Brock HPI: 01/12 10:37 This 65 yrs old Male presents to ER via Ambulatory with complaints of Foot jmm Pain - Left. 10:37 The patient presents with an injury, pain. Onset: The symptoms/episode began/occurred jmm gradually, 1 month(s) ago. Modifying factors: The symptoms are alleviated by nothing. the symptoms are aggravated by movement, weight bearing. Associated signs and symptoms: Pertinent negatives fever, swelling, tingling, vomiting, warmth. Patient was evaluated by Dr. Ponce. Recommended surgery. Pain is worsening. . Historical: - Allergies: 10:47 PENICILLINS; aa5 10:47 popcorn shrimp; aa5 - PMHx: 10:47 Hypertension; Kidney stones; aa5 - PSHx: 10:47 L4 -L5; Cholecystectomy; Hernia repair; aa5 - Immunization history:: Adult Immunizations unknown. - Social history:: Smoking status: Patient reports the use of cigarette tobacco products, smokes one pack cigarettes per day. ROS: 10:37 Constitutional: Negative for fever, chills, and weight loss, Cardiovascular: Negative jmm for chest pain, palpitations, and edema, Respiratory: Negative for shortness of breath, cough, wheezing, and pleuritic chest pain. 10:37 MS/extremity: Positive for pain. 10:37 All other systems are negative. Exam: 10:37 Constitutional: This is a well developed, well nourished patient who is awake, alert, jmm and in no acute distress. Head/Face: atraumatic. Eyes: EOMI, no conjunctival erythema appreciated ENT: Moist Mucus Membranes Neck: Trachea midline, Supple Chest/axilla: Normal chest wall appearance and motion. Cardiovascular: Regular rate and rhythm. No edema appreciated Respiratory: Normal respirations, no respiratory distress appreciated Abdomen/GI: Non distended, soft Back: Normal ROM Skin: General appearance color normal 10:37 Musculoskeletal/extremity: left heel is ttp, full dorsalis pulse, compartments are soft, NVI. 10:37 Skin: Appearance: Color: normal in color. 10:37 Neuro: Orientation: is normal, Mentation: is normal, Memory: is normal. 10:37 Psych: Behavior/mood is pleasant, cooperative. Vital Signs: 10:34 BP 157 / 98; Pulse 78; Resp 16 S; Temp 98.2(TE); Pulse Ox 100% on R/A; Weight 70.31 kg aa5 (R); Height 5 ft. 3 in. (160.02 cm) (R); Pain 10/10; 10:46 BP 157 / 98; Pulse 72; Resp 18; Temp 98.2(O); Pulse Ox 99% on R/A; Weight 70.31 kg; ld1 Height 5 ft. 3 in. (160.02 cm); Pain 10/10; 11:30 BP 157 / 96; Pulse 70; Resp 18; Pulse Ox 100% on R/A; Pain 9/10; ld1 10:46 Body Mass Index 27.46 (70.31 kg, 160.02 cm) ld1 MDM: 10:37 Patient medically screened. [facility] 12:05 Data reviewed: vital signs, nurses notes. Counseling: I had a detailed discussion with nabil the patient and/or guardian regarding: the historical points, exam findings, and any diagnostic results supporting the discharge/admit diagnosis, radiology results, the need for outpatient follow up, to return to the emergency department if symptoms worsen or persist or if there are any questions or concerns that arise at home. ED course: Patient is alert and nintoxic in appearance in the ED. I discussed the patient with Dr. Lizarraga whom will follow up with the patient on Saturday. I discussed this with the patient whom agrees with the plan of care. . 01/12 10:49 Order name: Foot Left 3 View XRAY [facility] 01/12 11:55 Order name: RAD; Complete Time: 11:56 EDME 01/12 12:03 Order name: Crutches; Complete Time: 12:06 [facility] Administered Medications: 11:00 Drug: [place] (HYDROcodone-acetaminophen) 10 mg-325 mg 1 tabs Route: PO; ld1 11:53 Follow up: Response: Pain is unchanged, physician notified ld1 11:53 Drug: Ketorolac 15 mg Route: IM; Site: right deltoid; ld1 Disposition: 01/13 07:23 Co-signature as Attending Physician, Nithin Brock MD I agree with the assessment and pia plan of care. Disposition: 01/12/21 12:06 Discharged to Home. Impression: Pain in left foot. - Condition is Stable. - Discharge Instructions: Foot Pain. - Prescriptions for Ultracet 37.5- 325 mg Oral Tablet - take 1 tablet by ORAL route every 6 hours - for up to 5 days; do not exceed 8 tablets per day.; 20 tablet. - Work release form, Medication Reconciliation Form, Thank You Letter, Antibiotic Education, Prescription Opioid Use form. - Follow up: Jovani Lizarraga DPM; When: Please call today for appointment on Saturday. . Signatures: Dispatcher [employer] EDNithin Scott MD MD cha Mickail, Joel, PA PA jmm Calderon, Audri, RN RN aa5 Alva Tang RN RN ld1 Corrections: (The following items were deleted from the chart) 01/12 12:19 12:06 01/12/2021 12:06 Discharged to Home. Impression: Pain in left foot. Condition is ld1 Stable. Forms are Medication Reconciliation Form, Thank You Letter, Antibiotic Education, Prescription Opioid Use. Follow up: Dr. Jovani Lizarraga; When: Please call today for appointment on Saturday. . cecilia
--- NOTE | 2021-01-12 12:07 | ER ---
Nurse's Notes [facility] Name: Sirena Peters Age: 65 yrs Sex: Male : 1955 Arrival Date: 01/12/2021 Time: 10:26 Bed 6 Private MD: Kirill Liriano Diagnosis: Pain in left foot Presentation: 01/12 10:34 Chief complaint: Patient states: left heel pain that began 1 month ago. Pt reports he aa5 was seen by neurology specialist and diagnosed with heel spur. 10:34 Coronavirus screen: At this time, the client does not indicate any symptoms associated aa5 with coronavirus-19. Ebola Screen: Patient negative for fever greater than or equal to 101.5 degrees Fahrenheit, and additional compatible Ebola Virus Disease symptoms. Initial Sepsis Screen: Does the patient meet any 2 criteria? No. Patient's initial sepsis screen is negative. Does the patient have a suspected source of infection? No. Patient's initial sepsis screen is negative. Risk Assessment: Do you want to hurt yourself or someone else? Patient reports no desire to harm self or others. Onset of symptoms was January 2021. 10:34 Acuity: LIANG 4 aa5 10:34 Method Of Arrival: Ambulatory aa5 Historical: - Allergies: 10:47 PENICILLINS; aa5 10:47 popcorn shrimp; aa5 - PMHx: 10:47 Hypertension; Kidney stones; aa5 - PSHx: 10:47 L4 -L5; Cholecystectomy; Hernia repair; aa5 - Immunization history:: Adult Immunizations unknown. - Social history:: Smoking status: Patient reports the use of cigarette tobacco products, smokes one pack cigarettes per day. Screenin:46 Abuse screen: Denies threats or abuse. Denies injuries from another. Nutritional ld1 screening: No deficits noted. Tuberculosis screening: No symptoms or risk factors identified. Fall Risk None identified. Assessment: 10:46 General: Appears in no apparent distress. comfortable, Behavior is calm, cooperative, ld1 appropriate for age. Pain: Complains of pain in left heel Pain does not radiate. Pain currently is 10 out of 10 on a pain scale. Quality of pain is described as stabbing, throbbing, Pain began Pt states pain began several weeks ago, it is not sudden pain. Continuous for over a month. Is continuous, Aggravated by increased activity. Neuro: Level of Consciousness is awake, alert, obeys commands, Oriented to person, place, time, situation, Appropriate for age. Cardiovascular: Capillary refill < 3 seconds Patient's skin is warm and dry. Respiratory: Airway is patent Respiratory effort is even, unlabored, Respiratory pattern is regular, symmetrical. GI: Abdomen is flat, non-distended. : No signs and/or symptoms were reported regarding the genitourinary system. EENT: No signs and/or symptoms were reported regarding the EENT system. Derm: No signs and/or symptoms reported regarding the dermatologic system. Musculoskeletal: Reports pain in left heel. 11:30 Reassessment: No changes from previously documented assessment. Patient is alert, ld1 oriented x 3, equal unlabored respirations, skin warm/dry/pink. Pt c/o pain in left heel 9/10. Notified ERP. See MAR for orders. Vital Signs: 10:34 BP 157 / 98; Pulse 78; Resp 16 S; Temp 98.2(TE); Pulse Ox 100% on R/A; Weight 70.31 kg aa5 (R); Height 5 ft. 3 in. (160.02 cm) (R); Pain 10/10; 10:46 BP 157 / 98; Pulse 72; Resp 18; Temp 98.2(O); Pulse Ox 99% on R/A; Weight 70.31 kg; ld1 Height 5 ft. 3 in. (160.02 cm); Pain 10/10; 11:30 BP 157 / 96; Pulse 70; Resp 18; Pulse Ox 100% on R/A; Pain 9/10; ld1 10:46 Body Mass Index 27.46 (70.31 kg, 160.02 cm) ld1 ED Course: 10:26 Patient arrived in ED. am2 10:26 Kirill Liriano DO is Private Physician. am2 10:29 Laz Irvin PA is PHCP. jmm 10:29 Nithin Brock MD is Attending Physician. jmm 10:34 Arm band placed on Patient placed in an exam room, on a stretcher. aa5 10:35 Alva Tang RN is Primary Nurse. ld1 10:46 Triage completed. aa5 10:46 Patient has correct armband on for positive identification. Bed in low position. Call ld1 light in reach. Side rails up X 1. Pulse ox on. NIBP on. Door closed. Noise minimized. Warm blanket given. 10:46 No provider procedures requiring assistance completed. ld1 12:06 Jovani Lizarraga DPM is Referral Physician. cecilia 12:18 Patient did not have IV access during this emergency room visit. ld1 Administered Medications: 11:00 Drug: [place] (HYDROcodone-acetaminophen) 10 mg-325 mg 1 tabs Route: PO; ld1 11:53 Follow up: Response: Pain is unchanged, physician notified ld1 11:53 Drug: Ketorolac 15 mg Route: IM; Site: right deltoid; ld1 Outcome: 12:06 Discharge ordered by . cecilia 12:18 Discharged to home ambulatory. ld1 12:18 Condition: stable 12:18 Discharge instructions given to patient, Instructed on discharge instructions, follow up and referral plans. medication usage, Demonstrated understanding of instructions, follow-up care, medications. 12:19 Patient left the ED. ld1 Signatures: Laz Irvin PA PA Nya Medellin, RN RN [email or web address] Luna Fuller am2 Alva Tang, RN RN ld1
[2021-01-12 12:25] VITALS: TEMP 98.2
[2021-01-12 12:28] VITALS: BP 157/96; O2SAT 100
== END 2021-01-12 12:19 | disposition home or self-care (01) ==
LOC: ER 10:24
DX: M79.672 Pain in left foot (principal); I10 Essential (primary) hypertension; F17.210 Nicotine dependence, cigarettes, uncomplicated; Z88.0 Allergy status to penicillin; Z91.013 Allergy to seafood
CPT/HCPCS: 96372; 99283

== ENCOUNTER 2021-05-16 09:57 | Emergency (ER) | payer MEDICARE, OTHER ==
--- OUTSIDE RECORDS SUMMARY | 2021-05-16 10:11 | XMS REPORT | Continuity of Care Document ---
:1955 Author Organization [facility] t Address [address] [place] [address] Care Team Providers Name Role Phone Amrita [...] 00 :00 [facility] 2018-09 Yes Kirill [address] [facility] HCl HCl 0-18 [facility] each [facility] Yes Kirill [address] [facility] Sodium Sodium 0-18 L[facility]iano [facility] Celexa Celexa Yes Kir[facility] Omeprazole Omeprazole Yes Kirill [address] [facility] Procedures This patient has no known procedures. Encounters Start End Encounter Admission Attending Care Care Encounter Source Date/Time Date/Time Type Type Clinicians Facility Department ID 2021-04-10 2021-04-10 [facility] [id number] [facility] 2021-02-15 2021-02-15 [facility] [id number] [facility] 2021-02-08 2021-02-08 [facility] [id number] [facility] 2021-02-08 2021-02-08 [facility] [id number] [facility] 2021-01-12 2021-01-12 [facility] [id number] [facility] 2020-12-13 2020-12-13 [facility] [id number] [facility] 2020-12-07 2020[facility]12-07 [facility] [id number] [facility] 2020-12-01 2020-12-01 [facility] [id number] [facility] 2020-11-29 2020-11-29 [facility] [id number] [facility] 2020-11-24 2020-11-24 [facility] [id number] [facility] 2020-09-27 2020-09-27 [facility] [id number] [facility] 2020-09-26 2020-09-26 [facility] [id number] [facility] 2020-09-22 2020-09-22 [facility] [id number] [facility] 2020-09-22 2020-09-22 [facility] [id number] [facility] 2020-08-29 2020-08-29 Out[facility] [id number] [facility] 2020-08-26 2020-08-26 Out[facility] [id number] [facility] 2020-08-24 2020-08-24 Out[facility] [id number] [facility] 2020-05-18 2020-05-18 [facility] [id number] [facility] 13:10:00 13:10:00 [place] [employer] - Drive [facility] l Medicine Outpati ent Clinics 2020-05-18 2020-05-18 [facility] [id number] 13:00:00 13:00:00 t [place] [employer] s - Drive [facility] Medicine Outpati ent Clinics 2020-03-15 2020-03-15 [facility] [id number] [address] 13:00:00 13:00:00 t [place] [employer] - Drive [facility] Medicine Outpati ent Clinics 2020-03-10 2020-03-10 [facility] [id number] 09:29:00 09:29:00 t [employer] - Drive [place] [facility] Medicine l Medicine Outpati ent Clinics 2019-10-27 2019-11-04 Office [facility] [phone] [id number] 14:59:06 16:07:07 Visit Amrita Schroeder [id number] [place] [id number] [facility] [phone] [address] 2019-10-02 2019-10-02 [facility] [id number] [address] 08:45:00 08:45:00 [place] [employer] [place] s - Drive [facility] Medicine Outpati ent Clinics 2019-08-21 2019-08-21 [facility] [id number] [address] 15:52:00 15:52:00 [place] [employer] [place] s - Drive [facility] Medicine Outpati ent Clinics 2019-06-26 2019-06-26 [facility] [id number] [address] 16:01:00 16:01:00 [place] [employer] [facility] - Drive [facility] Medicine Outpati ent Clinics 2019-06-26 2019-06-26 [facility] [id number] 09:30:00 09:30:00 [place] [employer] - Drive [facility] Medicine Outpati ent Clinics 2019-05-21 2019-05-21 [facility] [id number] 13:00:00 13:00:00 [place] [employer] - Drive [facility] Medicine Outpati ent Clinics 2019-02-23 2019-02-23 [facility] [id number] 08:30:00 08:30:00 [place] [employer] [place] s - Drive [facility] Medicine Outpati ent Clinics 2019-01-15 2019-01-15 [facility] [id number] 11:49:00 11:49:00 [place] [employer] - Drive [facility] Medicine Outpati ent Clinics 2019-01-07 2019-01-07 [facility] [id number] 11:00:00 11:00:00 [place] [employer] - Drive [facility] Medicine Outpati ent Clinics Results This patient has no known results.
--- NOTE | 2021-05-16 11:16 | RAD REPORT ---
EXAM DESCRIPTION: RAD - Chest Single View - 05/16/2021 11:12 am CLINICAL HISTORY: Cough;Congestion COMPARISON: Chest Single View dated 12/05/2020; Chest Single View dated 12/14/2019; Chest Single View d ated 12/06/2019; CHEST SINGLE VIEW dated 06/19/2013 FINDINGS: Lines: None. Lungs: No evidence of edema or pneumonia. Pleural: No significant pleural effusions or pneumothorax. Cardiac: The heart size is within normal limits. Bones: No acute fractures. Other: IMPRESSION: No acute cardiopulmonary disease.
[2021-05-16 11:39] LABS: Urine Blood Negative (Negative); Urine Glucose Negative (Negative); Urine Protein Negative (Negative); Urine Specific Gravity 1.025 (1.005-1.030); Urine pH 5.5 (5.0-7.0)
[2021-05-16 12:23] LABS: SARS-COV-2 RT PCR NEGATIVE (NEGATIVE)
--- NOTE | 2021-05-16 12:37 | ER ---
Nurse's Notes [facility] [place] Name: Sirena Peters Age: 65 yrs Sex: Male : 1955 Arrival Date: 05/16/2021 Time: 09:59 Bed Treatment Private MD: Diagnosis: Acute upper respiratory infection, unspecified Presentation: 05/16 10:04 Chief complaint: Patient states: Cough, SOB, weakness, fatigue, BORGES's for 1 week. ll1 Noticed urine looked red this morning, but no dysuria. Coronavirus screen: Vaccine status: Patient reports receiving the 1st dose of the Covid vaccine. Client denies travel out of the [place] in the last 14 days. congestion, cough unrelated to allergies, difficulty breathing, fatigue, nausea, shortness of breath, Client presents with at least one sign or symptom that may indicate coronavirus-19. Standard/surgical mask placed on the client. Ebola Screen: Patient denies travel to an Ebola-affected area in the 21 days before illness onset. No acute neurological deficit is noted. Initial Sepsis Screen: Does the patient meet any 2 criteria? No. Patient's initial sepsis screen is negative. Does the patient have a suspected source of infection? Yes: Productive cough/pneumonia. Risk Assessment: Do you want to hurt yourself or someone else? Patient reports no desire to harm self or others. Onset of symptoms was May 10, 2021. 10:04 Method Of Arrival: Ambulatory ll1 10:04 Acuity: LIANG 3 ll1 Stroke Activation: Symptom onset > 6 hours Physician: Stroke Attending; Name: ; Notified At: ; Arrived At: Physician: Chief Stroke Resident; Name: ; Notified At: ; Arrived At: Physician: Stroke Resident; Name: ; Notified At: ; Arrived At: Physician: ED Attending; Name: ; Notified At: ; Arrived At: Physician: ED Resident; Name: ; Notified At: ; Arrived At: Historical: - Allergies: 10:06 popcorn shrimp; ll1 10:06 PENICILLINS; ll1 - PMHx: 10:06 Hypertension; Kidney stones; ll1 - PSHx: 10:06 L4-L5 back SX; Cholecystectomy; hernia repair; ll1 - Immunization history:: Client reports receiving the 1st dose of the Covid vaccine, Flu vaccine is not up to date. - Social history:: Smoking status: Patient reports the use of cigarette tobacco products, smokes one pack cigarettes per day. Screenin:52 Abuse screen: Denies threats or abuse. Nutritional screening: No deficits noted. vg1 Tuberculosis screening: No symptoms or risk factors identified. Fall Risk No fall in past 12 months (0 pts). No secondary diagnosis (0 pts). No IV (0 pts). Ambulatory Aid- None/Bed Rest/Nurse Assist (0 pts). Gait- Normal/Bed Rest/Wheelchair (0 pts) Mental Status- Oriented to own ability (0 pts). Total Jackson Fall Scale indicates No Risk (0-24 pts). Assessment: 10:27 General: Appears in no apparent distress. comfortable, Behavior is calm, cooperative. vg1 Pain: Denies pain. Neuro: Level of Consciousness is awake, alert, obeys commands, Oriented to person, place, time, situation. Cardiovascular: Patient's skin is warm and dry. Respiratory: Reports shortness of breath on exertion cough that is dry, Airway is patent Respiratory effort is even, unlabored, Breath sounds with crackles in left posterior lower lobe and right posterior lower lobe. GI: Patient currently denies diarrhea, nausea, vomiting. : Reports reddish urine Denies burning with urination, pain urinary frequency. EENT: No signs and/or symptoms were reported regarding the EENT system. Derm: Skin is intact, Skin is pink, warm \T\ dry. Musculoskeletal: Circulation, motion, and sensation intact. 11:45 Reassessment: Patient appears in no apparent distress at this time. No changes from vg1 previously documented assessment. Patient and/or family updated on plan of care and expected duration. Pain level reassessed. Patient is alert, oriented x 3, equal unlabored respirations, skin warm/dry/pink. 12:52 Reassessment: Patient appears in no apparent distress at this time. Patient and/or vg1 family updated on plan of care and expected duration. Pain level reassessed. Patient is alert, oriented x 3, equal unlabored respirations, skin warm/dry/pink. Vital Signs: 10:04 BP 158 / 87; Pulse 61; Resp 18; Temp 97.8; Pulse Ox 100% ; Weight 65.77 kg; Height 5 ll1 ft. 4 in. (162.56 cm); Pain 7/10; 11:44 BP 136 / 74; Pulse 58; Resp 14; Pulse Ox 98% on R/A; vg1 12:45 BP 147 / 77; Pulse 62; Resp 16; Pulse Ox 98% on R/A; vg1 10:04 Body Mass Index 24.89 (65.77 kg, 162.56 cm) ll1 ED Course: 09:59 Patient arrived in ED. ds1 10:06 Triage completed. ll1 10:07 Arm band placed on Patient placed in an exam room, on a stretcher. ll1 10:13 [facility]C [facility] kb 10:13 Nithin Brock MD is Attending Physician. kb 10:22 Lore Brown, SABRINA is Primary Nurse. vg1 10:39 COVID swab sent to lab. Flu and/or RSV swab sent to lab. vg1 10:39 No provider procedures requiring assistance completed. vg1 10:40 Patient has correct armband on for positive identification. Bed in low position. Call vg1 light in reach. Side rails up X 1. 11:11 Chest Single View XRAY In Process Unspecified. EDMS 12:52 Patient did not have IV access during this emergency room visit. vg1 Administered Medications: No medications were administered Outcome: 12:37 Discharge ordered by MD. kb 12:52 Discharged to home ambulatory. vg1 12:52 Condition: stable 12:52 Discharge instructions given to patient, Instructed on discharge instructions, follow up and referral plans. Demonstrated understanding of instructions, follow-up care. 12:52 Patient left the ED. vg1 Signatures: Dispatcher [employer] EDOH Layne Giang FNP-C FNP-Maine Sullivan ds1 Lore Brown, RN RN vg1 Mikki Morrison RN RN ll1 Corrections: (The following items were deleted from the chart) 10:39 10:39 COVID swab sent to lab. vg1 vg1
--- NOTE | 2021-05-16 12:37 | EDPHYS ---
Physician Documentation [facility] Name: Sirena Peters Age: 65 yrs Sex: Male : 1955 Arrival Date: 05/16/2021 Time: 09:59 Bed Treatment Private MD: ED Physician Nithin Brock HPI: 05/16 16:20 This 65 yrs old Male presents to ER via Ambulatory with complaints of kb Weakness, Shortness Of Breath, Blood In Urine. 16:20 The patient or guardian reports cough. Onset: The symptoms/episode began/occurred 1 kb week(s) ago. Severity of symptoms: At their worst the symptoms were mild, in the emergency department the symptoms are unchanged. Modifying factors: The symptoms are alleviated by nothing, the symptoms are aggravated by nothing. Associated signs and symptoms: The patient has no apparent associated signs or symptoms. The patient has not experienced similar symptoms in the past. The patient has not recently seen a physician. Pt reports cough, weakness, fatigue and headache for a week. States it started after he cleaned a car that had vomit all over the inside. Historical: - Allergies: 10:06 popcorn shrimp; ll1 10:06 PENICILLINS; ll1 - PMHx: 10:06 Hypertension; Kidney stones; ll1 - PSHx: 10:06 L4-L5 back SX; Cholecystectomy; hernia repair; ll1 - Immunization history:: Client reports receiving the 1st dose of the Covid vaccine, Flu vaccine is not up to date. - Social history:: Smoking status: Patient reports the use of cigarette tobacco products, smokes one pack cigarettes per day. ROS: 16:20 Abdomen/GI: Negative for abdominal pain, nausea, vomiting, diarrhea, and constipation. kb 16:20 Constitutional: Positive for body aches, fatigue, malaise. 16:20 Respiratory: Positive for cough, shortness of breath, Negative for dyspnea on exertion, hemoptysis, orthopnea, pleurisy, sputum production, wheezing. 16:20 Neuro: Positive for weakness. 16:20 All other systems are negative. Exam: 16:21 Constitutional: This is a well developed, well nourished patient who is awake, alert, kb and in no acute distress. Head/Face: Normocephalic, atraumatic. ENT: Moist Mucous membranes Cardiovascular: Regular rate and rhythm with a normal S1 and S2. No gallops, murmurs, or rubs. No pulse deficits. Respiratory: Respirations even and unlabored. No increased work of breathing, no retractions or nasal flaring. Abdomen/GI: Soft, non-tender. No distention Skin: Warm, dry with normal turgor. Normal color. MS/ Extremity: Pulses equal, no cyanosis. Neurovascular intact. Full, normal range of motion. Neuro: Awake and alert, GCS 15, oriented to person, place, time, and situation. Moves all extremities. Normal gait. Psych: Awake, alert, with orientation to person, place and time. Behavior, mood, and affect are within normal limits. Vital Signs: 10:04 BP 158 / 87; Pulse 61; Resp 18; Temp 97.8; Pulse Ox 100% ; Weight 65.77 kg; Height 5 ll1 ft. 4 in. (162.56 cm); Pain 7/10; 11:44 BP 136 / 74; Pulse 58; Resp 14; Pulse Ox 98% on R/A; vg1 12:45 BP 147 / 77; Pulse 62; Resp 16; Pulse Ox 98% on R/A; vg1 10:04 Body Mass Index 24.89 (65.77 kg, 162.56 cm) ll1 MDM: 10:13 Patient medically screened. kb 16:19 Data reviewed: vital signs, nurses notes. Data interpreted: Pulse oximetry: on room air kb is 98 %. Interpretation: normal. Counseling: I had a detailed discussion with the patient and/or guardian regarding: the historical points, exam findings, and any diagnostic results supporting the discharge/admit diagnosis, lab results, radiology results, the need for outpatient follow up, a family practitioner, to return to the emergency department if symptoms worsen or persist or if there are any questions or concerns that arise at home. 16:22 ED course: Pt states he has had covid before and this feels the same. States he is kb going to treat it as covid and believes our test is incorrect. 05/16 10:14 Order name: Urine Dipstick-Ancillary (obtain specimen); Complete Time: 11:39 kb 05/16 10:18 Order name: Chest Single View XRAY; Complete Time: 11:21 kb 05/16 11:39 Order name: Urine Dipstick-Ancillary; Complete Time: 11:42 EDMS 05/16 12:23 Order name: COVID-19/FLU A+B; Complete Time: 12:30 EDMS Administered Medications: No medications were administered Disposition: 05/17 08:27 Co-signature as Attending Physician, Nithin Brock MD I agree with the assessment and pia plan of care. Disposition Summary: 05/16/21 12:37 Discharge Ordered Location: Home kb Condition: Stable kb Diagnosis - Acute upper respiratory infection, unspecified kb Followup: kb - With: Emergency Department - When: As needed - Reason: Worsening of condition Followup: kb - With: Private Physician - When: 2 - 3 days - Reason: Recheck today's complaints, Continuance of care, Re-evaluation by your physician Discharge Instructions: - Discharge Summary Sheet kb - Upper Respiratory Infection, Adult, [id number] kb - Viral Respiratory Infection, [id number] kb Forms: - Medication Reconciliation Form kb - Thank You Letter kb - Work release form kb - Antibiotic Education kb - Prescription Opioid Use kb Signatures: Dispatcher [employer] EDMS Layne Giang, HAND WOODWORKING SANDER-C HAND WOODWORKING SANDER-Nithin Hernandez MD MD cha Lewis, Lynsay, RN RN ll1 Corrections: (The following items were deleted from the chart) 05/16 11:35 10:14 CORONAVIRUS+MR.LAB.BRZ ordered. EDMS EDMS 11:36 10:19 Influenza Screen (A \T\ B)+BA.LAB.BRZ ordered. EDMS EDMS 16:21 16:20 Pt reports cough, weakness, fatigue and headache for a week. kb kb
[2021-05-16 12:57] VITALS: TEMP 97.8
[2021-05-16 12:59] VITALS: O2SAT 98
[2021-05-16 13:01] VITALS: BP 147/77
== END 2021-05-16 12:52 | disposition home or self-care (01) ==
LOC: ER 09:57
DX: J06.9 Acute upper respiratory infection, unspecified (principal); I10 Essential (primary) hypertension; F17.210 Nicotine dependence, cigarettes, uncomplicated; Z20.822 Contact with and (suspected) exposure to COVID-19; Z88.0 Allergy status to penicillin; Z91.013 Allergy to seafood
CPT/HCPCS: 81003; 0240U; 71045; 99283

== ENCOUNTER 2022-05-03 08:28 | Emergency (ER) | payer MEDICARE, OTHER ==
--- OUTSIDE RECORDS SUMMARY | 2022-05-03 08:34 | XMS REPORT | Continuity of Care Document ---
:1955 Author Organization [facility] t Address [address] [place] [address] [address] [place] [address] Care Team Providers Name Role Phone Estephania Low MD Primary Care Physician [phone] Kirill Liriano Attending Clinician Unavailable SADIA MARTINEZ Attending Clinician Unavailable Only, [facility] Attending Clinician Unavailable Sadia Martinez MD Attending Clinician Nurse, [facility] Attending Clinician Unavailable Unknown, Attending Attending Clinician Unavailable Cristina Camarillo RN Attending Clinician Unavailable Provider, [facility] Attending Clinician Unavailable Pat Rodrigues MD Attending Clinician PAT RODRIGUES Attending Clinician Unavailable Xena Bustamante MD Attending Clinician 2, [facility] Attending Clinician Unavailable Estephania oLw MD Attending Clinician [phone] Doctor Unassigned, [place] Attending Clinician Unavailable XENA BUSTAMANTE Attending Clinician Unavailable Mary Nava MD Attending Clinician Kvng Ortega MD Attending Clinician KVNG ORTEGA Attending Clinician Unavailable KVNG ORTEGA Admitting Clinician Unavailable Payers Payer Name Policy Type Policy Number Effective Date Expiration Date S ource WELLMED/LIANNE [id number] 2020 MEDICARE ADVANTAGE 00:00:00 Problems Condition Condition Condition Status Onset Resolution Last Treating Co mments Source Name Details Category Date Date Treatment Clinician Date Right Right Disease Active Univers lower lower 2-24 ity of quadrant quadrant 00:00: [place] pain pain 00 Medical Branch Right Right Disease Active Univers inguinal inguinal 2-24 ity of hernia hernia 00:00: Medical Branch Vascular Vascular Disease Active Unive rs claudicati claudicati 2-24 it y of on on 00:00: [place] [facility] Constipati Constipati Disease Active U nivers on, on, 2-24 ity of unspecifie [place]ie [place] [facility] constipati constipati Br anch on type on type Tobacco Tobacco Disease Active Univers abuse abuse 2-24 ity of 00:00: [place] [facility] H. pylori H. pylori Disease Active Uni vers infection infection 3-19 ity of 00:00: [place] [facility] Abdominal Abdominal Disease Active Uni vers pain pain 2-26 ity of 00:00: [place] 00 [facility] Essential Essential Disease Active Uni vers hypertensi hypertensi 6-07 it y of on on 00:00: [place] [facility] Allergies, Adverse Reactions, Alerts Allergy Allergy Status Severity Reaction(s) Onset Inactive Treating Comm ents Source Name Type Date Date Clinician Morphine Propensi Active Hives Univer s ty to 2-12 ity of adverse 00:00: [place] reaction 00 Medical Branch MORPHINE DRUG Active Hives Univers INGREDI 2-12 ity of 00:00: [place] 00 Medical Branch Shrimp Propensi Active Hives Univers ty to 5-21 ity of adverse 00:00: [place] reaction 00 Medical s Branch SHRIMP DRUG Active Hives Univers INGREDI 5-21 ity of 00:00: [place] 00 Medical Branch Social History Social Habit Start Date Stop Date Quantity Comments Source History of Smokes tobacco University of tobacco use daily [facility] [place] [facility] Exposure to 2022-03-16 2022-03-26 Not sure University of SARS-CoV-2 00:00:00 11:00:00 [facility] (event) Branch Alcohol intake 2019-11-02 2019-11-02 Current University of 00:00:00 00:00:00 non-drinker of [facility] alcohol (finding) [place] Tobacco use and 2017-01-28 2017-01-28 Smokeless tobacco Un iversity of exposure 00:00:00 00:00:00 non-user [facility] [place] [facility] Sex Ass[birth year] Universit y of 00:00:00 00:00:00 [facility] [place] [facility] Smoking Status Start Date Stop Date Source Smokes tobacco daily 2017-01-28 00:00:00 Univers ity of [facility] [place] [facility] Medications Ordered Filled Start Stop Current Ordering Indication Dosage Frequency Signature Comments Components Source Medication Medication Date Date Medication? Clinician (SIG) Name Name Meloxicam Meloxicam 2020- No Kirill 1 tablet Common 03-10 Liriano as needed Spirit 00:00: 00:00 for severe - [facility] 00 :00 pain [facility] pantoprazol 2019-0 Yes [id number] 40mg Take 1 Univers e 40 mg EC 2-18 tablet by ity of tablet 00:00: mouth [place] 00 daily. Medical Branch pantoprazol 2020-0 Yes [id number] 40mg Take 1 Univers e 40 mg EC 2-18 tablet by ity of tablet 00:00: mouth [place] 00 daily. Medical Branch pantoprazol 2020-0 Yes 40mg Take 1 Univ ers e 40 mg EC 2-18 tablet by ity of tablet 00:00: mouth [place] 00 daily. Medical Branch pantoprazol 2020-0 Yes 40mg Take 1 Univ ers e 40 mg EC 2-18 tablet by ity of tablet 00:00: mouth [place] 00 daily. Medical Branch pantoprazol 2020-0 Yes 40mg Take 1 Univ ers e 40 mg EC 2-18 tablet by ity of tablet 00:00: mouth [place] 00 daily. Medical Branch pantoprazol 2020-0 Yes 40mg Take 1 Univ ers e 40 mg EC 2-18 tablet by ity of tablet 00:00: mouth [place] 00 daily. Medical Branch pantoprazol 2020-0 Yes 40mg Take 1 Univ ers e 40 mg EC 2-18 tablet by ity of tablet 00:00: mouth [place] 00 daily. Medical Branch pantoprazol 2020-0 Yes 40mg Take 1 Univ ers e 40 mg EC 2-18 tablet by ity of tablet 00:00: mouth [place] 00 daily. Medical Branch pantoprazol 2020-0 Yes 40mg Take 1 Univ ers e 40 mg EC 2-18 tablet by ity of tablet 00:00: mouth daily. Medical Branch cilostazoL 2020-0 Yes [id number] 50mg Take 1 U nivers 50 mg 2-14 tablet by ity of tablet 00:00: mouth 2 (two) Medical times Branch daily. docusate 2020-0 Yes [id number] 100mg Take 1 Un sergio 100 mg 2-14 capsule by ity of capsule 00:00: mouth 2 (two) Medical times Branch daily as needed for Constipati on. sennosides 2020-0 Yes [id number] 8.6mg Take 1 Univers 8.6 mg 2-14 tablet by ity of tablet 00:00: mouth 00 daily. Medical Branch meperidine 2019-0 Yes [id number] 50mg Take 1 Univers 50 mg 2-14 tablet by ity of tablet 00:00: mouth 00 every 6 Medical (six) Branch hours as needed for Pain (scale 7-10) (Abdominal Pain). atorvastati 2020-0 Yes [id number] 10mg Take 1 Univers n 10 mg 2-14 tablet by ity of tablet 00:00: mouth at 00 bedtime. Medical Branch cilostazoL 2020-0 Yes [id number] 50mg Take 1 U nivers 50 mg 2-14 tablet by ity of tablet 00:00: mouth (two) Medical times Branch daily. docusate 2020-0 Yes [id number] 100mg Take 1 Un sergio 100 mg 2-14 capsule by ity of capsule 00:00: mouth (two) Medical times Branch daily as needed for Constipati on. sennosides 2020-0 Yes [id number] 8.6mg Take 1 Univers 8.6 mg 2-14 tablet by ity of tablet 00:00: mouth 00 daily. Medical Branch meperidine 2020-0 Yes [id number] 50mg Take 1 Univers 50 mg 2-14 tablet by ity of tablet 00:00: mouth [place] 00 every 6 Medical (six) Branch hours as needed for Pain (scale 7-10) (Abdominal Pain). atorvastati 2020-0 Yes [id number] 10mg Take 1 Univers n 10 mg 2-14 tablet by ity of tablet 00:00: mouth at 00 bedtime. Medical Branch cilostazoL 2020-0 Yes [id number] 50mg Take 1 U nivers 50 mg 2-14 tablet by ity of tablet 00:00: mouth 2 (two) Medical times Branch daily. docusate 2020-0 Yes [id number] 100mg Take 1 Un sergio 100 mg 2-14 capsule by ity of capsule 00:00: mouth 2 (two) Medical times Branch daily as needed for Constipati on. sennosides 2020-0 Yes [id number] 8.6mg Take 1 Univers 8.6 mg 2-14 tablet by ity of tablet 00:00: mouth 00 daily. Medical Branch meperidine 2020-0 Yes [id number] 50mg Take 1 Univers 50 mg 2-14 tablet by ity of tablet 00:00: mouth 00 every 6 Medical (six) Branch hours as needed for Pain (scale 7-10) (Abdominal Pain). atorvastati 2020-0 Yes [id number] 10mg Take 1 Univers n 10 mg 2-14 tablet by ity of tablet 00:00: mouth at bedtime. Medical Branch cilostazoL 2020-0 Yes [id number] 50mg Take 1 U nivers 50 mg 2-14 tablet by ity of tablet 00:00: mouth (two) Medical times Branch daily. docusate 2020-0 Yes [id number] 100mg Take 1 Un sergio 100 mg 2-14 capsule by ity of capsule 00:00: mouth (two) Medical times Branch daily as needed for Constipati on. sennosides 2020-0 Yes [id number] 8.6mg Take 1 Univers 8.6 mg 2-14 tablet by ity of tablet 00:00: mouth 00 daily. Medical Branch meperidine 2020-0 Yes [id number] 50mg Take 1 Univers 50 mg 2-14 tablet by ity of tablet 00:00: mouth [place] 00 every 6 Medical (six) Branch hours as needed for Pain (scale 7-10) (Abdominal Pain). atorvastati 2020-0 Yes [id number] 10mg Take 1 Univers n 10 mg 2-14 tablet by ity of tablet 00:00: mouth at 00 bedtime. Medical Branch cilostazoL 2020-0 Yes [id number] 50mg Take 1 U nivers 50 mg 2-14 tablet by ity of tablet 00:00: mouth 2 00 (two) Medical times Branch daily. docusate 2020-0 Yes [id number] 100mg Take 1 Un sergio 100 mg 2-14 capsule by ity of capsule 00:00: mouth 2 (two) Medical times Branch daily as needed for Constipati on. sennosides 2020-0 Yes [id number] 8.6mg Take 1 Univers 8.6 mg 2-14 tablet by ity of tablet 00:00: mouth [place] 00 daily. Medical Branch meperidine 2020-0 Yes [id number] 50mg Take 1 Univers 50 mg 2-14 tablet by ity of tablet 00:00: mouth [place] 00 every 6 Medical (six) Branch hours as needed for Pain (scale 7-10) (Abdominal Pain). atorvastati 2020-0 Yes [id number] 10mg Take 1 Univers n 10 mg 2-14 tablet by ity of tablet 00:00: mouth at 00 bedtime. Medical Branch cilostazoL 2020-0 Yes [id number] 50mg Take 1 U nivers 50 mg 2-14 tablet by ity of tablet 00:00: mouth 2 (two) Medical times Branch daily. docusate 2020-0 Yes [id number] 100mg Take 1 Un sergio 100 mg 2-14 capsule by ity of capsule 00:00: mouth (two) Medical times Branch daily as needed for Constipati on. sennosides 2020-0 Yes [id number] 8.6mg Take 1 Univers 8.6 mg 2-14 tablet by ity of tablet 00:00: mouth 00 daily. Medical Branch meperidine 2020-0 Yes [id number] 50mg Take 1 Univers 50 mg 2-14 tablet by ity of tablet 00:00: mouth [place] 00 every 6 Medical (six) Branch hours as needed for Pain (scale 7-10) (Abdominal Pain). atorvastati 2020-0 Yes [id number] 10mg Take 1 Univers n 10 mg 2-14 tablet by ity of tablet 00:00: mouth at [place] 00 bedtime. Medical Branch cilostazoL 2020-0 Yes [id number] 50mg Take 1 U nivers 50 mg 2-14 tablet by ity of tablet 00:00: mouth 2 [place] 00 (two) Medical times Branch daily. docusate 2020-0 Yes [id number] 100mg Take 1 Un sergio 100 mg 2-14 capsule by ity of capsule 00:00: mouth 2 (two) Medical times Branch daily as needed for Constipati on. sennosides 2020-0 Yes [id number] 8.6mg Take 1 Univers 8.6 mg 2-14 tablet by ity of tablet 00:00: mouth 00 daily. Medical Branch meperidine 2020-0 Yes [id number] 50mg Take 1 Univers 50 mg 2-14 tablet by ity of tablet 00:00: mouth [place] 00 every 6 Medical (six) Branch hours as needed for Pain (scale 7-10) (Abdominal Pain). atorvastati 2020-0 Yes [id number] 10mg Take 1 Univers n 10 mg 2-14 tablet by ity of tablet 00:00: mouth at [place] 00 bedtime. Medical Branch cilostazoL 2020-0 Yes [id number] 50mg Take 1 U nivers 50 mg 2-14 tablet by ity of tablet 00:00: mouth 2 (two) Medical times Branch daily. docusate 2020-0 Yes [id number] 100mg Take 1 Un sergio 100 mg 2-14 capsule by ity of capsule 00:00: mouth 2 (two) Medical times Branch daily as needed for Constipati on. sennosides 2020-0 Yes [id number] 8.6mg Take 1 Univers 8.6 mg 2-14 tablet by ity of tablet 00:00: mouth 00 daily. Medical Branch meperidine 2020-0 Yes [id number] 50mg Take 1 Univers 50 mg 2-14 tablet by ity of tablet 00:00: mouth [place] 00 every 6 Medical (six) Branch hours as needed for Pain (scale 7-10) (Abdominal Pain). atorvastati 2020-0 Yes [id number] 10mg Take 1 Univers n 10 mg 2-14 tablet by ity of tablet 00:00: mouth at [place] 00 bedtime. Medical Branch cilostazoL 2020-0 Yes [id number] 50mg Take 1 U nivers 50 mg 2-14 tablet by ity of tablet 00:00: mouth 2 (two) Medical times Branch daily. docusate 2020-0 Yes [id number] 100mg Take 1 Un sergio 100 mg 2-14 capsule by ity of capsule 00:00: mouth 2 (two) Medical times Branch daily as needed for Constipati on. sennosides 2020-0 Yes [id number] 8.6mg Take 1 Univers 8.6 mg 2-14 tablet by ity of tablet 00:00: mouth [place] 00 daily. Medical Branch meperidine 2020-0 Yes [id number] 50mg Take 1 Univers 50 mg 2-14 tablet by ity of tablet 00:00: mouth [place] 00 every 6 Medical (six) Branch hours as needed for Pain (scale 7-10) (Abdominal Pain). atorvastati 2020-0 Yes [id number] 10mg Take 1 Univers n 10 mg 2-14 tablet by ity of tablet 00:00: mouth at 00 bedtime. Medical Branch cilostazoL 2020-0 Yes [id number] 50mg Take 1 U nivers 50 mg 2-14 tablet by ity of tablet 00:00: mouth (two) Medical times Branch daily. docusate 2020-0 Yes [id number] 100mg Take 1 Un sergio 100 mg 2-14 capsule by ity of capsule 00:00: mouth (two) Medical times Branch daily as needed for Constipati on. sennosides 2020-0 Yes [id number] 8.6mg Take 1 Univers 8.6 mg 2-14 tablet by ity of tablet 00:00: mouth 00 daily. Medical Branch meperidine 2020-0 Yes [id number] 50mg Take 1 Univers 50 mg 2-14 tablet by ity of tablet 00:00: mouth 00 every 6 Medical (six) Branch hours as needed for Pain (scale 7-10) (Abdominal Pain). atorvastati 2020-0 Yes [id number] 10mg Take 1 Univers n 10 mg 2-14 tablet by ity of tablet 00:00: mouth at 00 bedtime. Medical Branch cilostazoL 2020-0 Yes [id number] 50mg Take 1 U nivers 50 mg 2-14 tablet by ity of tablet 00:00: mouth 2 (two) Medical times Branch daily. docusate 2020-0 Yes [id number] 100mg Take 1 Un sergio 100 mg 2-14 capsule by ity of capsule 00:00: mouth (two) Medical times Branch daily as needed for Constipati on. sennosides 2020-0 Yes [id number] 8.6mg Take 1 Univers 8.6 mg 2-14 tablet by ity of tablet 00:00: mouth [place] 00 daily. Medical Branch meperidine 2020-0 Yes [id number] 50mg Take 1 Univers 50 mg 2-14 tablet by ity of tablet 00:00: mouth [place] 00 every 6 Medical (six) Branch hours as needed for Pain (scale 7-10) (Abdominal Pain). atorvastati 2020-0 Yes [id number] 10mg Take 1 Univers n 10 mg 2-14 tablet by ity of tablet 00:00: mouth at 00 bedtime. Medical Branch cilostazoL 2020-0 Yes [id number] 50mg Take 1 U nivers 50 mg 2-14 tablet by ity of tablet 00:00: mouth 2 (two) Medical times Branch daily. docusate 2020-0 Yes [id number] 100mg Take 1 Un sergio 100 mg 2-14 capsule by ity of capsule 00:00: mouth (two) Medical times Branch daily as needed for Constipati on. sennosides 2020-0 Yes [id number] 8.6mg Take 1 Univers 8.6 mg 2-14 tablet by ity of tablet 00:00: mouth 00 daily. Medical Branch meperidine 2020-0 Yes [id number] 50mg Take 1 Univers 50 mg 2-14 tablet by ity of tablet 00:00: mouth [place] 00 every 6 Medical (six) Branch hours as needed for Pain (scale 7-10) (Abdominal Pain). atorvastati 2020-0 Yes [id number] 10mg Take 1 Univers n 10 mg 2-14 tablet by ity of tablet 00:00: mouth at 00 bedtime. Medical Branch cilostazoL 2020-0 Yes [id number] 50mg Take 1 U nivers 50 mg 2-14 tablet by ity of tablet 00:00: mouth 2 (two) Medical times Branch daily. docusate 2020-0 Yes [id number] 100mg Take 1 Un sergio 100 mg 2-14 capsule by ity of capsule 00:00: mouth 2 (two) Medical times Branch daily as needed for Constipati on. sennosides 2020-0 Yes [id number] 8.6mg Take 1 Univers 8.6 mg 2-14 tablet by ity of tablet 00:00: mouth [place] 00 daily. Medical Branch meperidine 2020-0 Yes [id number] 50mg Take 1 Univers 50 mg 2-14 tablet by ity of tablet 00:00: mouth [place] 00 every 6 Medical (six) Branch hours as needed for Pain (scale 7-10) (Abdominal Pain). atorvastati 2020-0 Yes [id number] 10mg Take 1 Univers n 10 mg 2-14 tablet by ity of tablet 00:00: mouth at [place] 00 bedtime. Medical Branch cilostazoL 2020-0 Yes [id number] 50mg Take 1 U nivers 50 mg 2-14 tablet by ity of tablet 00:00: mouth 2 (two) Medical times Branch daily. docusate 2020-0 Yes [id number] 100mg Take 1 Un sergio 100 mg 2-14 capsule by ity of capsule 00:00: mouth 2 (two) Medical times Branch daily as needed for Constipati on. sennosides 2020-0 Yes [id number] 8.6mg Take 1 Univers 8.6 mg 2-14 tablet by ity of tablet 00:00: mouth 00 daily. Medical Branch meperidine 2020-0 Yes [id number] 50mg Take 1 Univers 50 mg 2-14 tablet by ity of tablet 00:00: mouth 00 every 6 Medical (six) Branch hours as needed for Pain (scale 7-10) (Abdominal Pain). atorvastati 2019-0 Yes [id number] 10mg Take 1 Univers n 10 mg 2-14 tablet by ity of tablet 00:00: mouth at [place] 00 bedtime. Medical Branch ibuprofen 2019-0 Yes 400mg 400 mg, Univ ers (IBU) 2-12 Oral, ity of tablet 400 20:45: Q6HPRN, [place] mg 33 Starting Medical Wed Branch 10/21/19 at 1445, Until Discontinu ed, Routine, Pain (scale 4-6) acetaminoph 2020-0 Yes 500mg 500 mg, Un sergio en 2-12 Oral, ity of (TYLENOL) 20:45: Q6HPRN, [place] tablet 500 33 Starting Medic al mg Wed Branch 10/21/19 at 1445, Until Discontinu ed, Routine, Pain (scale 4-6) ondansetron 2019-0 2020- No 4mg 4 mg, Slow Univers (ZOFRAN 10-21 IV Push, ity of (PF)) 17:45: 16:49 ONCE, 1 [place] injection 4 00 :00 dose, Wed Med ical mg 10/21/19 at Branch 1145, ROSELIA FENTanyl PF 2019- No 75ug 75 mcg, Un sergio (SUBLIMAZE 10-21 Slow IV ity o f (PF)) 17:45: 16:48 Push, [place] injection 00 :00 ONCE, 1 Medical 75 mcg dose, Wed Branch 10/21/19 at 1145, STAT ondansetron 2019- No 4mg 4 mg, Slow Univers (ZOFRAN 10-21 IV Push, ity of (PF)) 15:45: 14:47 ONCE, 1 [place] injection 4 00 :00 dose, Wed Med ical mg 10/21/19 at Branch 0945, ROSELIA ketorolac 2019- No 15mg 15 mg, Unive rs (TORADOL) 10-21 Slow IV ity of injection 15:45: 14:47 Push, [place] 15 mg 00 :00 ONCE, 1 Medical dose, Wed Branch 10/21/19 at 0945, ROSELIA
Fa culty member approving Restricted medication : KVNG ORTEGA iohexol 2019- No 120mL 120 mL, Unive rs (OMNIPAQUE 10-21 Intravenou it y of 350 15:30: 15:15 s, ONCE, 1 [place] BULK-150 00 :00 dose, Wed Medica l mL) 10/21/19 at Branch injection 0930, 120 mL Routine Azelastine Azelastine 2018- Yes Kirill 1 puff in Common HCl HCl 0-18 Liriano each Spirit 00:00: nostril - [facility] Montelukast Montelukast 2018- Yes Kirill 1 tablet Common Sodium Sodium 0-18 Liriano Spirit 00:00: - [facility] omeprazole 2019- Yes [id number] 20mg Take 1 Univers 20 mg 3-19 capsule by ity of capsule 00:00: mouth 2 [place] 00 (two) Medical times Branch daily. metroNIDAZO 2018- Yes [id number] 500mg Take 1 Univers LE 500 mg 3-19 tablet by ity o f tablet 00:00: mouth [place] 00 every 8 Medical (eight) Branch hours. amoxicillin 2019-0 Yes [id number] 1000mg Take 2 Univers 500 mg 3-19 capsules ity of capsule 00:00: by mouth 2 [place] 00 (two) Medical times Branch daily. tamsulosin 2019-0 Yes [id number] .4mg Take 1 Univers 0.4 mg 24 3-19 capsule by ity of hr capsule 00:00: mouth [place] 00 daily. Medical Branch omeprazole 2019-0 Yes [id number] 20mg Take 1 Univers 20 mg 3-19 capsule by ity of capsule 00:00: mouth 2 [place] 00 (two) Medical times Branch daily. metroNIDAZO 2019-0 Yes [id number] 500mg Take 1 Univers LE 500 mg 3-19 tablet by ity o f tablet 00:00: mouth [place] 00 every 8 Medical (eight) Branch hours. amoxicillin 2019-0 Yes [id number] 1000mg Take 2 Univers 500 mg 3-19 capsules ity of capsule 00:00: by mouth 2 [place] (two) Medical times Branch daily. tamsulosin 2019-0 Yes [id number] .4mg Take 1 Univers 0.4 mg 24 3-19 capsule by ity of hr capsule 00:00: mouth [place] 00 daily. Medical Branch omeprazole 2019-0 Yes [id number] 20mg Take 1 Univers 20 mg 3-19 capsule by ity of capsule 00:00: mouth 2 (two) Medical times Branch daily. omeprazole 2019-0 Yes [id number] 20mg Take 1 Univers 20 mg 3-19 capsule by ity of capsule 00:00: mouth 00 (two) Medical times Branch daily. metroNIDAZO 2019-0 Yes [id number] 500mg Take 1 Univers LE 500 mg 3-19 tablet by ity o f tablet 00:00: mouth [place] 00 every 8 Medical (eight) Branch hours. amoxicillin 2019-0 Yes [id number] 1000mg Take 2 Univers 500 mg 3-19 capsules ity of capsule 00:00: by mouth 2 [place] 00 (two) Medical times Branch daily. tamsulosin 2019-0 Yes [id number] .4mg Take 1 Univers 0.4 mg 24 3-19 capsule by ity of hr capsule 00:00: mouth [place] 00 daily. Medical Branch metroNIDAZO 2019-0 Yes [id number] 500mg Take 1 Univers LE 500 mg 3-19 tablet by ity o f tablet 00:00: mouth [place] 00 every 8 Medical (eight) Branch hours. amoxicillin 2019-0 Yes [id number] 1000mg Take 2 Univers 500 mg 3-19 capsules ity of capsule 00:00: by mouth 2 [place] 00 (two) Medical times Branch daily. omeprazole 2019-0 Yes [id number] 20mg Take 1 Univers 20 mg 3-19 capsule by ity of capsule 00:00: mouth 2 [place] 00 (two) Medical times Branch daily. metroNIDAZO 2019-0 Yes [id number] 500mg Take 1 Univers LE 500 mg 3-19 tablet by ity o f tablet 00:00: mouth [place] 00 every 8 Medical (eight) Branch hours. amoxicillin 2019-0 Yes [id number] 1000mg Take 2 Univers 500 mg 3-19 capsules ity of capsule 00:00: by mouth 2 [place] 00 (two) Medical times Branch daily. tamsulosin 2019-0 Yes [id number] .4mg Take 1 Univers 0.4 mg 24 3-19 capsule by ity of hr capsule 00:00: mouth [place] 00 daily. Medical Branch tamsulosin 2019-0 Yes [id number] .4mg Take 1 Univers 0.4 mg 24 3-19 capsule by ity of hr capsule 00:00: mouth [place] 00 daily. Medical Branch omeprazole 2019-0 Yes [id number] 20mg Take 1 Univers 20 mg 3-19 capsule by ity of capsule 00:00: mouth 2 [place] 00 (two) Medical times Branch daily. metroNIDAZO 2019-0 Yes [id number] 500mg Take 1 Univers LE 500 mg 3-19 tablet by ity o f tablet 00:00: mouth [place] 00 every 8 Medical (eight) Branch hours. amoxicillin 2019-0 Yes [id number] 1000mg Take 2 Univers 500 mg 3-19 capsules ity of capsule 00:00: by mouth 2 [place] 00 (two) Medical times Branch daily. tamsulosin 2019-0 Yes [id number] .4mg Take 1 Univers 0.4 mg 24 3-19 capsule by ity of hr capsule 00:00: mouth [place] 00 daily. Medical Branch omeprazole 2019-0 Yes [id number] 20mg Take 1 Univers 20 mg 3-19 capsule by ity of capsule 00:00: mouth 2 [place] 00 (two) Medical times Branch daily. metroNIDAZO 2019-0 Yes [id number] 500mg Take 1 Univers LE 500 mg 3-19 tablet by ity o f tablet 00:00: mouth [place] 00 every 8 Medical (eight) Branch hours. amoxicillin 2019-0 Yes [id number] 1000mg Take 2 Univers 500 mg 3-19 capsules ity of capsule 00:00: by mouth 2 [place] 00 (two) Medical times Branch daily. tamsulosin 2019-0 Yes [id number] .4mg Take 1 Univers 0.4 mg 24 3-19 capsule by ity of hr capsule 00:00: mouth [place] 00 daily. Medical Branch omeprazole 2019-0 Yes [id number] 20mg Take 1 Univers 20 mg 3-19 capsule by ity of capsule 00:00: mouth 2 (two) Medical times Branch daily. metroNIDAZO 2019-0 Yes [id number] 500mg Take 1 Univers LE 500 mg 3-19 tablet by ity o f tablet 00:00: mouth [place] 00 every 8 Medical (eight) Branch hours. amoxicillin 2019-0 Yes [id number] 1000mg Take 2 Univers 500 mg 3-19 capsules ity of capsule 00:00: by mouth 2 [place] 00 (two) Medical times Branch daily. tamsulosin 2019-0 Yes [id number] .4mg Take 1 Univers 0.4 mg 24 3-19 capsule by ity of hr capsule 00:00: mouth [place] 00 daily. Medical Branch omeprazole 2019-0 Yes [id number] 20mg Take 1 Univers 20 mg 3-19 capsule by ity of capsule 00:00: mouth 2 00 (two) Medical times Branch daily. metroNIDAZO 2019-0 Yes [id number] 500mg Take 1 Univers LE 500 mg 3-19 tablet by ity o f tablet 00:00: mouth [place] 00 every 8 Medical (eight) Branch hours. amoxicillin 2019-0 Yes [id number] 1000mg Take 2 [facility] 500 mg 3-19 capsules ity of capsule 00:00: by mouth 2 [place] 00 (two) Medical times Branch daily. tamsulosin 2019-0 Yes [id number] .4mg Take 1 Univers 0.4 mg 24 3-19 capsule by ity of hr capsule 00:00: mouth [place] 00 daily. Medical Branch omeprazole 2019-0 Yes [id number] 20mg Take 1 Univers 20 mg 3-19 capsule by ity of capsule 00:00: mouth 2 [place] 00 (two) Medical times Branch daily. omeprazole 2019-0 Yes [id number] 20mg Take 1 Univers 20 mg 3-19 capsule by ity of capsule 00:00: mouth 2 00 (two) Medical times Branch daily. metroNIDAZO 2019-0 Yes [id number] 500mg Take 1 Univers LE 500 mg 3-19 tablet by ity o f tablet 00:00: mouth [place] 00 every 8 Medical (eight) Branch hours. amoxicillin 2019-0 Yes [id number] 1000mg Take 2 [facility] 500 mg 3-19 capsules ity of capsule 00:00: by mouth 2 [place] 00 (two) Medical times Branch daily. tamsulosin 2019-0 Yes [id number] .4mg Take 1 Univers 0.4 mg 24 3-19 capsule by ity of hr capsule 00:00: mouth [place] 00 daily. Medical Branch metroNIDAZO 2019-0 Yes [id number] 500mg Take 1 Univers LE 500 mg 3-19 tablet by ity o f tablet 00:00: mouth [place] 00 every 8 Medical (eight) Branch hours. omeprazole 2019-0 Yes [id number] 20mg Take 1 Univers 20 mg 3-19 capsule by ity of capsule 00:00: mouth 00 (two) Medical times Branch daily. amoxicillin 2019-0 Yes [id number] 1000mg Take 2 Univers 500 mg 3-19 capsules it[facility] [place] capsule [place]two[place] [facility] times Branch daily. metroNIDAZO 2019-0 Yes [id number] 500mg Take 1 [facility] LE 500 mg 3-19 tablet by ity o f tablet 00:00: mouth [place] 00 every 8 Medical (eight) Branch hours. amoxicillin 2019-0 Yes [id number] 1000mg Take 2 [facility] 500 mg 3-19 capsules [facility] capsule 00:00: [place] (two[place] Medical times Branch daily. tamsulosin 2019-0 Yes [id number] .4mg Take 1 Univers 0.4 mg 24 3-19 capsule by ity of hr capsule 00:00: mouth [place] 00 daily. Medical Branch tamsulosin 2019-0 Yes [id number] .4mg Take 1 [facility] 0.4 mg 24 3-19 capsule by ity of hr capsule 00:00: mouth [place] 00 daily. Medical Branch omeprazole 2019-0 Yes [id number] 20mg Take 1 Univers 20 mg 3-19 capsule by ity of capsule 00:00: mouth 2 [place] 00 (two) Medical times Branch daily. metroNIDAZO 2019-0 Yes [id number] 500mg Take 1 [facility] LE 500 mg 3-19 tablet by ity o f tablet 00:00: mouth [place] 00 every 8 Medical (eight) Branch hours. amoxicillin 2019-0 Yes [id number] 1000mg Take 2 [facility] 500 mg 3-19 capsules [facility]y [facility] capsule 00:00: [place] mouth [place] (two) Medical times Branch daily. tamsulosin 2019-0 Yes [id number] .4mg Take 1 Univers 0.4 mg 24 3-19 capsule by ity of hr capsule 00:00: mouth [place] 00 daily. Medical Branch omeprazole 2019-0 Yes [id number] 20mg Take 1 [facility] 20 mg 3-19 capsule by ity of capsule 00:00: mouth 2 00 (two) Medical times Branch daily. metroNIDAZO 2019-0 Yes [id number] 500mg Take 1 [facility] LE 500 mg 3-19 tablet by ity o f tablet 00:00: mouth [place] 00 every 8 Medical (eight) Branch hours. amoxicillin 2019-0 Yes [id number] 1000mg Take 2 [facility] 500 mg 3-19 capsules [facility] capsule 00:00: [place] (two[place] [facility] times [facility] daily. tamsulosin 2019-0 Yes [id number] .4mg Take 1 [facility] 0.4 mg 24 3-19 capsule by ity of hr capsule 00:00: mouth [place] 00 daily. Medical Branch omeprazole 2019-0 Yes [id number] 20mg Take 1 [facility] 20 mg 3-19 capsule by ity of capsule 00:00: mouth 2 [place] 00 (two) Medical times Branch daily. metroNIDAZO 2019-0 Yes [id number] 500mg Take 1 [facility] LE 500 mg 3-19 tablet by ity o f tablet 00:00: mouth [place] 00 every 8 Medical (eight) Branch hours. amoxicillin 2019-0 Yes [id number] 1000mg Take 2 [facility] 500 mg 3-19 capsules ity of capsule 00:00: [place] mouth 2 [place] (two) Medical times Branch daily. tamsulosin 2019-0 Yes [id number] .4mg Take 1 [facility] 0.4 mg 24 3-19 capsule by ity of hr capsule 00:00: mouth [place] 00 daily. Medical Branch omeprazole 2019-0 Yes [id number] 20mg Take 1 [facility] 20 mg 3-19 capsule by ity of capsule 00:00: mouth 2 [place] 00 (two) Medical times Branch daily. metroNIDAZO 2019-0 Yes [id number] 500mg Take 1 [facility] LE 500 mg 3-19 tablet by ity o f tablet 00:00: mouth [place] 00 every 8 Medical (eight) Branch hours. amoxicillin 2019-0 Yes [id number] 1000mg Take 2 [facility] 500 mg 3-19 capsules ity of capsule 00:00: by mouth 2 [place] (two) Medical times Branch daily. tamsulosin 2019-0 Yes [id number] .4mg Take 1 [facility] 0.4 mg 24 3-19 capsule by ity of hr capsule 00:00: mouth [place] 00 daily. Medical Branch omeprazole 2019-0 Yes [id number] 20mg Take 1 [facility] 20 mg 3-19 capsule by ity of capsule 00:00: mouth 2 [place] 00 (two) Medical times Branch daily. metroNIDAZO 2019-0 Yes [id number] 500mg Take 1 [facility] LE 500 mg 3-19 tablet by ity o f tablet 00:00: mouth [place] 00 every 8 Medical (eight) Branch hours. amoxicillin 2019-0 Yes [id number] 1000mg Take 2 [facility] 500 mg 3-19 capsules ity of capsule 00:00: [place] mouth [place] (two) [facility] times [facility] daily. tamsulosin 2019-0 Yes [id number] .4mg Take 1 [facility] 0.4 mg 24 3-19 capsule by ity of hr capsule 00:00: mouth [place] 00 daily. Medical Branch omeprazole 2019-0 Yes [id number] 20mg Take 1 [facility] 20 mg 3-19 capsule by ity of capsule 00:00: mouth 2 [place] 00 (two) Medical times Branch daily. metroNIDAZO 2019-0 Yes [id number] 500mg Take 1 [facility] LE 500 mg 3-19 tablet by ity o f tablet 00:00: mouth [place] 00 every 8 Medical (eight) Branch hours. amoxicillin 2019-0 Yes [id number] 1000mg Take 2 [facility] 500 mg 3-19 capsules ity of capsule 00:00: by mouth 2 [place] (two) Medical times Branch daily. tamsulosin Yes [id number] .4mg Take 1 Univers 0.4 mg 24 3-19 capsule by ity of hr capsule 00:00: mouth [place] 00 daily. Medical Branch enalapril Yes [id number] 10mg Take 1 U nivers 10 mg 2-27 tablet by ity of tablet 00:00: mouth [place] 00 daily. Medical Branch esomeprazol Yes [id number] 20mg Take 20 mg Univers e (NEXIUM) 2-27 by mouth ity o f 20 mg 00:00: daily [place] capsule 00 before a Medical meal. Branch enalapril Yes [id number] 10mg Take 1 U nivers 10 mg 2-27 tablet by ity of tablet 00:00: mouth [place] 00 daily. Medical Branch enalapril Yes [id number] 10mg Take 1 U nivers 10 mg 2-27 tablet by ity of tablet 00:00: mouth [place] 00 daily. Medical Branch esomeprazol Yes [id number] 20mg Take 20 mg Univers e (NEXIUM) 2-27 by mouth ity o f 20 mg 00:00: daily [place] capsule 00 before a Medical meal. Branch esomeprazol Yes [id number] 20mg Take 20 mg Univers e (NEXIUM) 2-27 by mouth ity o f 20 mg 00:00: daily [place] capsule 00 before a Medical meal. Branch enalapril Yes [id number] 10mg Take 1 U nivers 10 mg 2-27 tablet by ity of tablet 00:00: mouth [place] 00 daily. Medical Branch esomeprazol Yes [id number] 20mg Take 20 mg Univers e (NEXIUM) 2-27 by mouth ity o f 20 mg 00:00: daily [place] capsule 00 before a Medical meal. Branch enalapril Yes [id number] 10mg Take 1 U nivers 10 mg 2-27 tablet by ity of tablet 00:00: mouth [place] 00 daily. Medical Branch esomeprazol Yes [id number] 20mg Take 20 mg Univers e (NEXIUM) 2-27 by mouth ity o f 20 mg 00:00: daily [place] capsule 00 before a Medical meal. Branch enalapril Yes [id number] 10mg Take 1 U nivers 10 mg 2-27 tablet by ity of tablet 00:00: mouth [place] 00 daily. [facility] Branch esomeprazol Yes [id number] 20mg Take 20 mg Univers e (NEXIUM) 2-27 by mouth ity o f 20 mg 00:00: daily [place] capsule 00 before a Medical meal. Branch enalapril Yes [id number] 10mg Take 1 U nivers 10 mg 2-27 tablet by ity of tablet 00:00: mouth [place] 00 daily. [facility] Branch esomeprazol Yes [id number] 20mg Take 20 mg Univers e (NEXIUM) 2-27 by mouth ity o f 20 mg 00:00: daily [place] capsule 00 before a Medical meal. Branch enalapril Yes [id number] 10mg Take 1 U nivers 10 mg 2-27 tablet by ity of tablet 00:00: mouth [place] 00 daily. [facility] esomeprazol Yes [id number] 20mg Take 20 mg Univers e (NEXIUM) 2-27 by mouth ity o f 20 mg 00:00: daily [place] capsule 00 before a Medical meal. Branch enalapril Yes [id number] 10mg Take 1 U nivers 10 mg 2-27 tablet by ity of tablet 00:00: mouth [place] 00 daily. [facility] esomeprazol Yes [id number] 20mg Take 20 mg Univers e (NEXIUM) 2-27 by mouth ity o f 20 mg 00:00: daily [place] capsule 00 before a Medical meal. Branch enalapril Yes [id number] 10mg Take 1 U nivers 10 mg 2-27 tablet by ity of tablet 00:00: mouth [place] 00 daily. [facility] esomeprazol Yes [id number] 20mg Take 20 mg Univers e (NEXIUM) 2-27 by mouth ity o f 20 mg 00:00: daily [place] capsule 00 before a Medical meal. Branch enalapril Yes [id number] 10mg Take 1 U nivers 10 mg 2-27 tablet by ity of tablet 00:00: mouth [place] 00 daily. [facility] esomeprazol Yes [id number] 20mg Take 20 mg Univers e (NEXIUM) 2-27 by mouth ity o f 20 mg 00:00: daily [place] capsule 00 before a Medical meal. [place] enalapril Yes [id number] 10mg Take 1 U nivers 10 mg 2-27 tablet by ity of tablet 00:00: mouth [place] 00 daily. [facility] esomeprazol Yes [id number] 20mg Take 20 mg Univers e (NEXIUM) 2-27 by mouth ity o f 20 mg 00:00: daily [place] capsule 00 before a Medical meal. Branch enalapril Yes [id number] 10mg Take 1 U nivers 10 mg 2-27 tablet by ity of tablet 00:00: mouth [place] 00 daily. [facility] esomeprazol Yes [id number] 20mg Take 20 mg Univers e (NEXIUM) 2-27 by mouth ity o f 20 mg 00:00: daily [place] capsule 00 before a Medical meal. [place] enalapril Yes [id number] 10mg Take 1 U nivers 10 mg 2-27 tablet by ity of tablet 00:00: mouth [place] 00 daily. [facility] esomeprazol Yes [id number] 20mg Take 20 mg Univers e (NEXIUM) 2-27 by mouth ity o f 20 mg 00:00: daily [place] capsule 00 before a Medical meal. [place] enalapril Yes [id number] 10mg Take 1 U nivers 10 mg 2-27 tablet by ity of tablet 00:00: mouth [place] 00 daily. [facility] esomeprazol Yes [id number] 20mg Take 20 mg Univers e (NEXIUM) 2-27 by mouth ity o f 20 mg 00:00: daily [place] capsule 00 before a Medical meal. Branch enalapril Yes [id number] 10mg Take 1 U nivers 10 mg 2-27 tablet by ity of tablet 00:00: mouth [place] 00 daily. [facility] esomeprazol Yes [id number] 20mg Take 20 mg Univers e (NEXIUM) 2-27 by mouth ity o f 20 mg 00:00: daily [place] capsule 00 before a Medical meal. [place] enalapril Yes [id number] 10mg Take 1 U nivers 10 mg 2-27 tablet by ity of tablet 00:00: mouth [place] 00 daily. Medical Branch esomeprazol 2018-0 Yes [id number] 20mg Take 20 mg Univers e (NEXIUM) 2-27 by mouth ity o f 20 mg 00:00: daily [place] capsule 00 before a Medical meal. Branch enalapril 2018-0 Yes [id number] 10mg Take 1 U nivers 10 mg 2-27 tablet by ity of tablet 00:00: mouth [place] 00 daily. Medical Branch esomeprazol 0 Yes [id number] 20mg Take 20 mg Univers e (NEXIUM) 2-27 by mouth ity o f 20 mg 00:00: daily [place] capsule 00 before a Medical meal. Branch dicyclomine Yes [id number] 20mg Take 1 Univers (BENTYL) 20 2-26 tablet by ity of mg tablet 00:00: mouth (four) Medical times Branch daily. ondansetron 2018- Yes [id number] 8mg Take 1 Univers (ZOFRAN) 8 2-26 tablet by ity of mg tablet 00:00: mouth [place] 00 every 8 Medical (eight) Branch hours as needed for Nausea and Vomiting (N/V). dicyclomine 2018-0 Yes [id number] 20mg Take 1 Univers (BENTYL) 20 2-26 tablet by ity of mg tablet 00:00: mouth (four) Medical times Branch daily. ondansetron 2018-0 Yes [id number] 8mg Take 1 Univers (ZOFRAN) 8 2-26 tablet by ity of mg tablet 00:00: mouth [place] 00 every 8 Medical (eight) Branch hours as needed for Nausea and Vomiting (N/V). dicyclomine 2018-0 Yes [id number] 20mg Take 1 Univers (BENTYL) 20 2-26 tablet by ity of mg tablet 00:00: mouth 4 (four) Medical times Branch daily. ondansetron 2018-0 Yes [id number] 8mg Take 1 Univers (ZOFRAN) 8 2-26 tablet by ity of mg tablet 00:00: mouth [place] 00 every 8 Medical (eight) Branch hours as needed for Nausea and Vomiting (N/V). dicyclomine 2018- Yes [id number] 20mg Take 1 Univers (BENTYL) 20 2-26 tablet by ity of mg tablet 00:00: mouth (four) Medical times Branch daily. ondansetron 2019-0 Yes [id number] 8mg Take 1 Univers (ZOFRAN) 8 2-26 tablet by ity of mg tablet 00:00: mouth [place] 00 every 8 Medical (eight) Branch hours as needed for Nausea and Vomiting (N/V). dicyclomine 2019-0 Yes [id number] 20mg Take 1 Univers (BENTYL) 20 2-26 tablet by ity of mg tablet 00:00: mouth 4 00 (four) Medical times Branch daily. ondansetron 2019-0 Yes [id number] 8mg Take 1 Univers (ZOFRAN) 8 2-26 tablet by ity of mg tablet 00:00: mouth [place] 00 every 8 Medical (eight) Branch hours as needed for Nausea and Vomiting (N/V). dicyclomine 2019-0 Yes [id number] 20mg Take 1 Univers (BENTYL) 20 2-26 tablet by ity of mg tablet 00:00: mouth (four) Medical times Branch daily. ondansetron 2019-0 Yes [id number] 8mg Take 1 Univers (ZOFRAN) 8 2-26 tablet by ity of mg tablet 00:00: mouth [place] 00 every 8 Medical (eight) Branch hours as needed for Nausea and Vomiting (N/V). dicyclomine 2019-0 Yes [id number] 20mg Take 1 Univers (BENTYL) 20 2-26 tablet by ity of mg tablet 00:00: mouth (four) Medical times Branch daily. ondansetron 2019-0 Yes [id number] 8mg Take 1 Univers (ZOFRAN) 8 2-26 tablet by ity of mg tablet 00:00: mouth [place] 00 every 8 Medical (eight) Branch hours as needed for Nausea and Vomiting (N/V). dicyclomine 2019-0 Yes [id number] 20mg Take 1 Univers (BENTYL) 20 2-26 tablet by ity of mg tablet 00:00: mouth 4 00 (four) Medical times Branch daily. ondansetron 2019-0 Yes [id number] 8mg Take 1 Univers (ZOFRAN) 8 2-26 tablet by ity of mg tablet 00:00: mouth [place] 00 every 8 Medical (eight) Branch hours as needed for Nausea and Vomiting (N/V). ondansetron 2019-0 Yes [id number] 8mg Take 1 Univers (ZOFRAN) 8 2-26 tablet by ity of mg tablet 00:00: mouth [place] 00 every 8 Medical (eight) Branch hours as needed for Nausea and Vomiting (N/V). dicyclomine 2019-0 Yes [id number] 20mg Take 1 Univers (BENTYL) 20 2-26 tablet by ity of mg tablet 00:00: mouth 4 [place] 00 (four) Medical times Branch daily. dicyclomine 2019-0 Yes [id number] 20mg Take 1 Univers (BENTYL) 20 2-26 tablet by ity of mg tablet 00:00: mouth 4 [place] 00 (four) Medical times Branch daily. ondansetron 2019-0 Yes [id number] 8mg Take 1 Univers (ZOFRAN) 8 2-26 tablet by ity of mg tablet 00:00: mouth [place] 00 every 8 Medical (eight) Branch hours as needed for Nausea and Vomiting (N/V). dicyclomine 2019-0 Yes [id number] 20mg Take 1 Univers (BENTYL) 20 2-26 tablet by ity of mg tablet 00:00: mouth (four) Medical times Branch daily. ondansetron 2019-0 Yes [id number] 8mg Take 1 Univers (ZOFRAN) 8 2-26 tablet by ity of mg tablet 00:00: mouth [place] 00 every 8 Medical (eight) Branch hours as needed for Nausea and Vomiting (N/V). dicyclomine 2019-0 Yes [id number] 20mg Take 1 Univers (BENTYL) 20 2-26 tablet by ity of mg tablet 00:00: mouth 4 00 (four) Medical times Branch daily. ondansetron 2019-0 Yes [id number] 8mg Take 1 Univers (ZOFRAN) 8 2-26 tablet by ity of mg tablet 00:00: mouth [place] 00 every 8 Medical (eight) Branch hours as needed for Nausea and Vomiting (N/V). dicyclomine 2019-0 Yes [id number] 20mg Take 1 Univers (BENTYL) 20 2-26 tablet by ity of mg tablet 00:00: mouth (four) Medical times Branch daily. ondansetron 2019-0 Yes [id number] 8mg Take 1 Univers (ZOFRAN) 8 2-26 tablet by ity of mg tablet 00:00: mouth [place] 00 every 8 Medical (eight) Branch hours as needed for Nausea and Vomiting (N/V). dicyclomine 2019-0 Yes [id number] 20mg Take 1 Univers (BENTYL) 20 2-26 tablet by ity of mg tablet 00:00: mouth (four) Medical times Branch daily. ondansetron 2019-0 Yes [id number] 8mg Take 1 Univers (ZOFRAN) 8 2-26 tablet by ity of mg tablet 00:00: mouth [place] 00 every 8 Medical (eight) Branch hours as needed for Nausea and Vomiting (N/V). dicyclomine 2019-0 Yes [id number] 20mg Take 1 Univers (BENTYL) 20 2-26 tablet by ity of mg tablet 00:00: mouth (four) Medical times Branch daily. ondansetron 2019-0 Yes [id number] 8mg Take 1 Univers (ZOFRAN) 8 2-26 tablet by ity of mg tablet 00:00: mouth [place] 00 every 8 Medical (eight) Branch hours as needed for Nausea and Vomiting (N/V). dicyclomine 2019-0 Yes [id number] 20mg Take 1 Univers (BENTYL) 20 2-26 tablet by ity of mg tablet 00:00: mouth (four) Medical times Branch daily. ondansetron 2019-0 Yes [id number] 8mg Take 1 Univers (ZOFRAN) 8 2-26 tablet by ity of mg tablet 00:00: mouth [place] 00 every 8 Medical (eight) Branch hours as needed for Nausea and Vomiting (N/V). dicyclomine 2019-0 Yes [id number] 20mg Take 1 Univers (BENTYL) 20 2-26 tablet by ity of mg tablet 00:00: mouth 4 (four) Medical times Branch daily. ondansetron 2019-0 Yes [id number] 8mg Take 1 Univers (ZOFRAN) 8 2-26 tablet by ity of mg tablet 00:00: mouth [place] 00 every 8 Medical (eight) Branch hours as needed for Nausea and Vomiting (N/V). dicyclomine 2018- Yes [id number] 20mg Take 1 Univers (BENTYL) 20 2-26 tablet by ity of mg tablet 00:00: mouth 4 00 (four) Medical times Branch daily. ondansetron Yes [id number] 8mg Take 1 Univers (ZOFRAN) 8 2-26 tablet by ity of mg tablet 00:00: mouth [place] 00 every 8 Medical (eight) Branch hours as needed for Nausea and Vomiting (N/V). Celexa Celexa Yes Kirill 1 tablet Commo n [facility] Omeprazole Omeprazole Yes Kirill 1 capsule Common [facility] Vital Signs Vital Name Observation Time Observation Value Comments Source Systolic blood 2019-10-27 21:19:00 130 mm[Hg] Univer [facility]ity of [facility] Diastolic blood 2019-10-27 21:19:00 82 mm[Hg] [facility] Heart rate 2019-10-27 21:19:00 72 /min Universi ty [place] [facility] Body temperature 2019-10-27 21:19:00 35.94 [facility] Res[facility] rate 2019-10-27 21:19:00 18 /min [facility] Body weight 2019-10-27 21:19:00 66.588 kg Universi ty [place] [facility] BMI 2019-10-27 21:19:00 26.85 kg/m2 Universi ty [place] [facility] Systolic blood 2019-10-27 21:19:00 130 mm[Hg] Univer sity [facility] Diastolic blood 2019-10-27 21:19:00 82 mm[Hg] Unive [facility] Heart rate 2019-10-27 21:19:00 72 /min Universi ty [place] [facility] Body temperature 2019-10-27 21:19:00 35.94 [facility] Respiratory rate 2019-10-27 21:19:00 18 /min [facility] Body weight 2019-10-27 21:19:00 66.588 kg Universi ty [place] [facility] BMI 2019-10-27 21:19:00 26.85 kg/m2 [facility]i [facility] [place] [facility] Systolic blood 2019-10-23 20:39:00 103 mm[Hg] Univer sity of pressure [place] [facility] Diastolic blood 2019-10-23 20:39:00 72 mm[Hg] Unive rsity of pressure [place] [facility] Heart rate 2019-10-23 20:39:00 65 /min Universi ty [facility] [place] [facility] Body temperature 2019-10-23 20:39:00 36.78 Tara Univ ers[facility] [place] [facility] Respiratory rate 2019-10-23 20:39:00 18 /min Univ ers[facility] [place] [facility] Body weight 2019-10-23 20:39:00 66.225 kg Universi ty [facility] [place] [facility] BMI 2019-10-23 20:39:00 26.70 kg/m2 [facility] [place] [facility] Oxygen saturation in 2019-10-23 20:39:00 99 /min University of Arterial blood by [facility] Pulse oximetry Branch Systolic blood 2019-10-21 22:34:39 137 mm[Hg] Univer [facility]ity of [facility] [place] [facility] Diastolic blood 2019-10-21 22:34:39 89 mm[Hg] Unive rsity of [facility] [place] [facility] Heart rate 2019-10-21 22:34:39 76 /min [facility]i [facility] [place] [facility] Respiratory rate 2019-10-21 22:34:39 16 /min Univ ers[facility] [place] [facility] Oxygen saturation in 2019-10-21 22:34:39 100 /min University of Arterial blood by [facility] Pulse oximetry Branch Body temperature 2019-10-21 18:19:00 36.11 Tara Univ ers[facility] [place] [facility] Body weight 2019-10-21 18:19:00 63.504 kg Universi ty [facility] [place] [facility] BMI 2019-10-21 18:19:00 25.61 kg/m2 [facility] [place] [facility] Systolic blood 2019-10-21 16:27:30 161 mm[Hg] Univer sity of pressure [place] [facility] Diastolic blood 2019-10-21 16:27:30 94 mm[Hg] Unive rsity of pressure [place] [facility] Heart rate 2019-10-21 16:27:30 57 /min [facility]i ty [facility] [place] [facility] Respiratory rate 2019-10-21 16:27:30 15 /min Univ [facility] [place] [facility] Oxygen saturation in 2019-10-21 16:27:30 99 /min University of Arterial blood by [facility] Pulse oximetry Branch Body temperature 2019-10-21 14:06:00 36.78 Tara [facility] Body height 2019-10-21 14:06:00 157.5 cm [facility] Body weight 2019-10-21 14:06:00 63.504 kg [facility] BMI 2019-10-21 14:06:00 25.61 kg/m2 [facility] Procedures Procedure Date / Time Performing Clinician Source Performed AGREEMENTS AUTHORIZATIONS 2019-10-26 06:01:00 Doctor Aundrea, [facility] AND IRREVOCABLE [place] [facility] ASSIGNMENTS (FORM 2001) NO SHOW OR MISSED 2019-10-23 20:13:48 Doctor Aundrea, [facility] APPOINTMENT POLICY [place] [facility] h ACKNOWLEDGEMENT CT ABDOMEN PELVIS W 2019-10-21 15:18:00 Kvng Ortega [facility] CONTRAST [facility] PROTHROMBIN TIME / INR 2019-10-21 14:43:00 Kvng Ortega [facility] ACTIVATED PARTIAL THRMPLAS 2019-10-21 14:43:00 Kvng Ortega [facility] SABINA [facility] EKG-12 LEAD 2019-10-21 14:32:07 Kvng Ortega [facility] LIPASE 2019-10-21 14:21:00 Kvng Ortega [facility] TROPONIN I 2019-10-21 14:21:00 Kvng Ortega [facility] COMP. METABOLIC PANEL 2019-10-21 14:21:00 Kvng Ortega [facility] ([id number]) [facility] CBC WITH DIFFERENTIAL 2019-10-21 14:21:00 Kvng Ortega [facility] URINALYSIS 2019-10-21 14:21:00 Kvng Ortega [facility] N-TERMINAL PRO-BNP 2019-10-21 14:21:00 Kvng Ortega [facility] NOTICE OF PRIVACY 2019-10-21 13:51:39 Doctor Aundrea, [facility] PRACTICES [place] [facility] [place] CONSENT/REFUSAL FOR 2019-10-21 13:51:24 Doctor Aundrea [facility] DIAGNOSIS AND TREATMENT [place] [facility] Encounters Start End Encounter Admission Attending Care Care Encounter Source Date/Time Date/Time Type Type Clinicians Facility Department ID 2021-10-12 Outpatient Liriano, STLMLC STLMLC [id number] Common 15:41:00 Kirill [facility] 2021-10-04 Outpatient Liriano, STLMLC STLMLC [id number] Common 13:33:12 Kirill [facility] 2021-10-04 Outpatient Liriano, STLMLC STLMLC [id number] Common 13:00:47 Kirill [facility] 2021-10-04 Outpatient Liriano, STLMLC STLMLC [id number] Common 12:47:56 Kirill [id number] [facility] 2021-10-04 Outpatient Liriano, STLMLC STLMLC [id number] Common 12:43:55 Kirill [id number] [facility] 2021-10-04 Outpatient Liriano, STLMLC STLMLC [id number] Common 12:41:52 Kirill [id number] [facility] 2021-10-04 Outpatient Liriano, STLMLC STLC [id number] Common 12:29:54 Kirill [id number] [facility] 2021-10-04 Outpatient Liriano, STLMLC STLC [id number] Common 12:25:09 Kirill [id number] [facility] 2021-10-04 Outpatient Liriano, STLMLC STLMLC [id number] Common 12:22:08 Kirill [id number] [facility] 2021-10-04 Outpatient Liriano, STLMLC STLMLC [id number] Common 12:21:24 Kirill [id number] [facility] 2021-10-04 Outpatient Liriano, STLMLC STLMLC [id number] Common 12:14:23 Kirill [id number] [facility] 2021-10-04 Outpatient Liriano, STLMLC STLMLC [id number] Common 11:29:30 Kirill [id number] [facility] 2021-10-04 Outpatient Liriano, STLMLC STLMLC [id number] Common 11:18:08 Kirill [id number] [facility] 2021-10-04 Outpatient Liriano, STLMLC STLMLC [id number] Common 11:09:25 Kirill [id number] [facility] 2021-10-04 Outpatient Liriano, STLMLC STLMLC [id number] Common 11:02:57 Kirill [id number] [facility] 2022-04-16 2022-04-16 ambulatory STLMLC STLMLC [id number] Common 00:00:00 00:00:00 [facility] 2022-04-05 2022-04-05 ambulatory STLMLC STLMLC [id number] Common 00:00:00 00:00:00 [facility] 2022-04-05 2022-04-05 ambulatory STLMLC STLMLC [id number] Common 00:00:00 00:00:00 [facility] 2022-03-30 2022-03-30 ambulatory STLMLC STLMLC [id number] Common 00:00:00 00:00:00 [facility] 2022-03-26 2022-03-26 Outpatient [facility] [id number] Univers 11:15:00 11:15:00 [id number] [facility] 2022-03-26 2022-03-26 Outpatient R JUAN [facility] [id number] Univers 11:15:00 [facility]15[facility]-26 2022-03-26 Laboratory Only, Ang Db Test [facility] 1.2.8 [id number] [id number] Univers 11:15:00 11:15:00 Only [facility] [id number] [facility] [id number] Willi as RAMYA?BLEA [id number] [address] MEDICAL OFFICE BUILDING 2021-12-25 2021-12-25 ambulatory STLMLC STLMLC [id number] Common 00:00:00 00:00:00 [facility] 2021-11-13 2021-11-13 ambulatory STLMLC STLMLC [id number] Common 00:00:00 00:00:00 [facility] 2021-10-16 2021-10-16 ambulatory STLMLC STLMLC [id number] Common 00:00:00 00:00:00 [facility] 2021-10-16 2021-10-16 ambulatory STLMLC STLMLC [id number] Common 00:00:00 00:00:00 [facility] 2021-09-18 2021-09-18 ambulatory STLMLC STLMLC [id number] Common 00:00:00 00:00:00 [facility] 2021-09-06 2021-09-06 Letter Nurse, Cong [facility] 1.2.840.114 [id number] Univers 00:00:00 00:00:00 (Out) Urgent Care HEALTH 350.1.13.10 ity of SURGICAL 4.2.7.2.686 Willi as SPECIALTI [phone] [address] 2021-09-06 2021-09-06 Telephone Ryan, [facility] 1.2.840.114 [id number] Univers 00:00:00 00:00:00 Attending HEALTH 350.1.13.10 ity of [place] 4.2.7.2.686 Willi as RAMYA?BLEA [phone] [address] MEDICAL OFFICE BUILDING 2021-09-05 2021-09-05 Telephone KIKA [place] [id number] Univers 00:00:00 00:00:00 Cristina NOBLES 350.1.13.10 ity of HOSPITAL 4.2.7.2.686 Willi as [phone] [address] 2021-09-04 2021-09-04 Outpatient R J[facility] [id number] Univers 15:00:00 16:17:24 SADIA ity [facility] 2021-09-04 2021-09-04 Laboratory OnlyCong Db Test [facility] 1.2.8 40.114 [id number] Univers 15:00:00 15:15:00 Only Sadia Martinez [facility] 350.1.13.10 ity of [place] 4.2.7.2.686 Willi as RAMYA?BLEA [phone] Me dical [address] MEDICAL OFFICE BUILDING 2021-09-04 2021-09-04 Outpatient R [facility] [id number] Univers 15:00:00 15:00:00 [id number] ity of [facility] 2021-09-04 2021-09-04 Letter Provider, [facility] [id number] [id number] Univers 00:00:00 00:00:00 (Out) [facility] 350.1.13.10 it y of Urgent Care [place] 4.2.7.2.686 [place] RAMYA?BLEA [phone] Me dical [address] MEDICAL OFFICE [facility] 2021-06-20 2021-06-20 Outpatient STLMLC STLMLC [id number] Common 00:00:00 00:00:00 [facility] 2021-05-31 2021-05-31 Outpatient STLMLC STLMLC [id number] Common 00:00:00 00:00:00 [facility] 2021-04-10 2021-04-10 Outpatient STLMLC STLMLC [id number] Common 00:00:00 00:00:00 [facility] 2021-02-15 2021-02-15 Outpatient STLMLC STLMLC [id number] Common 00:00:00 00:00:00 [facility] 2021-02-08 2021-02-08 Outpatient STLMLC STLMLC [id number] Common 00:00:00 00:00:00 [facility] 2021-02-08 2021-02-08 Outpatient STLMLC STLMLC [id number] Common 00:00:00 00:00:00 [facility] 2021-01-12 2021-01-12 Outpatient STLMLC STLMLC [id number] Common 00:00:00 00:00:00 [facility] 2020-12-13 2020-12-13 Outpatient STLMLC STLMLC [id number] Common 00:00:00 00:00:00 [facility] 2020-12-07 2020-12-07 Outpatient STLMLC STLMLC [id number] Common 00:00:00 00:00:00 [facility] 2020-12-01 2020-12-01 Outpatient STLMLC STLMLC [id number] Common 00:00:00 00:00:00 [facility] 2020-11-29 2020-11-29 Outpatient STLMLC STLMLC [id number] Common 00:00:00 00:00:00 [facility] 2020-11-24 2020-11-24 Outpatient STLMLC STLMLC [id number] Common 00:00:00 00:00:00 [facility] 2020-09-27 2020-09-27 Outpatient STLMLC STLMLC [id number] Common 00:00:00 00:00:00 [facility] 2020-09-26 2020-09-26 Outpatient STLMLC STLMLC [id number] Common 00:00:00 00:00:00 [facility] 2020-09-22 2020-09-22 Outpatient STLMLC STLMLC [id number] Common 00:00:00 00:00:00 [facility] 2020-09-22 2020-09-22 Outpatient STLMLC STLMLC [id number] Common 00:00:00 00:00:00 [facility] 2020-08-29 2020-08-29 Outpatient STLMLC STLMLC [id number] Common 00:00:00 00:00:00 [facility] 2020-08-26 2020-08-26 Outpatient STLMLC STLMLC [id number] Common 00:00:00 00:00:00 [facility] 2020-08-24 2020-08-24 Outpatient STLMLC STLMLC [id number] Common 00:00:00 00:00:00 [facility] 2020-05-18 2020-05-18 [facility] [id number] Common 13:10:00 13:10:[address] [facility] 2020-05-18 2020-05-18 [facility] [id number] Common 13:00:00 13:00:[address] [facility] 2020-03-15 2020-03-15 [facility] [id number] Common 13:00:00 13:00:[address] [facility] 2020-03-10 2020-03-10 [facility] [id number] Common 09:29:00 09:29:[address] [facility] 2019-10-27 2019-11-04 Office [facility] [id number] Univers 14:59:06 16:07:07 Visit Pat Schroeder 350.1.13.10 [place] [phone] Ny dical nal [address] [facility] 2019-10-27 2019-11-04 Office [facility] [id number] 14:59:06 16:07:07 Visit Pat Schroeder 350.1.13.10 [place] 4.2.7.2.686 Professio [phone] [address] 2019-10-27 2019-10-27 Outpatient R [facility] [id number] Univers 15:15:00 16:12:43 PAT fierro [facility] 2019-10-27 2019-10-27 Telephone [facility] 1.2.840.114 [id number] [facility] 00:00:00 00:00:00 Xena Schroeder 350.1.13.10 [place] [phone] Ny dical nal 044 [facility] 2019-10-26 2019-10-26 Scanning Supervisor 2, Adc Lab [facility] 1.2.840.114 [id number] [facility] 08:30:53 08:45:53 Visit Estephania Low 350.1. 13.10 [place] [phone] Ny dical nal 353 [facility] 2019-10-26 2019-10-26 Orders Doctor KIKA 1.2.840.114 [id number] Univers 00:00:00 00:00:00 Only Unassigned, MALLORIE 350.1.13.10 ity of [place] [facility] 4.2.7.2.686 Willi as [phone] [facility] [address] [place] 2019-10-23 2019-10-23 Office [facility] 1.2.840.114 [id number] Univers 14:21:19 16:12:39 Visit Xena Schroeder 350.1.13.10 [place] [phone] Ny dical nal 044 [facility] 2019-10-23 2019-10-23 Outpatient R [facility] [id number] Univers 14:20:00 16:12:39 XENA fierro [facility] 2019-10-23 2019-10-23 Orders Doctor ANAND 1.2.840.114 [id number] Univers 00:00:00 00:00:00 Only Unassigned, MALLORIE 350.1.13.10 ity of [place] [facility] 4.2.7.2.686 Willi as [phone] [facility] [address] [place] 2019-10-21 2019-10-21 Emergency Unknown, Attending TRAUMA 1.2.8 40.114 [id number] Univers 12:21:18 16:35:00 [facility] 350.1.13.10 [place] [phone] [facility] [address] [place] 2019-10-21 2019-10-21 Emergency [facility] [id number] Univers 08:08:55 11:21:00 Kvng Schroeder 350.1.13.10 [place] [phone] [facility] [address] [place] 2019-10-21 2019-10-21 Emergency X [facility] ERT [id number] Univers 08:08:55 11:21:00 KVNG fierro of [facility] 2019-10-21 2019-10-21 Orders Doctor ANAND 1.2.840.114 [id number] Univers 00:00:00 00:00:00 Only Unassigned, MALLORIE 350.1.13.10 ity of [place] [facility] 4.2.7.2.686 [facility] as [phone] [address] 2019-10-02 2019-10-02 Out[facility] [id number] Common 08:45:00 08:45:[address] [facility] 2019-08-21 2019-08-21 Out[facility] [id number] Common 15:52:00 15:52:[address] [facility] 2019-06-26 2019-06-26 Outpatient [facility] [id number] Common 16:01:00 16:01:[address] [facility] 2019-06-26 2019-06-26 Out[facility] [id number] Common 09:30:00 09:30:[address] [facility] 2019-05-21 2019-05-21 Outpatient [facility] [id number] Common 13:00:00 13:00:[address] [facility] 2019-02-23 2019-02-23 Outpatient [facility] [id number] Common 08:30:00 08:30:[address] [facility] 2019-01-15 2019-01-15 Out[facility] [id number] Common 11:49:00 11:49:[address] [facility] 2019-01-07 2019-01-07 Out[facility] [id number] Common 11:00:00 11:00:[address] [facility] Results Test Test Test Results Result Source Description Time Comments Comments CT ABDOMEN 2019-10 CT Abdomen and Pelvis with University PELVIS W -12 intravenous contrast. CLINICAL of [place] CONTRAST 15:32:5 HISTORY: Abdominal infection, Medical 4 including peritonitis. DOSE: Branch Up-to-date CT equipment and radiation dose reduction techniques wereemployed. CTDIvol: 4.14 mGy. DLP: 195 mGy-cm. TECHNIQUE : Contiguous axial imaging from the level of the lung basesthrough the pubic symphysis were performed after the uncomplicatedadministration of Omnipaque contrast material. Coronal and sagittalreconstructions were obtained. Auto mA and/or iterative reconstruction wereused to reduce radiation dose. FINDINGS: Comparison is made with previous CT scan of 11/04/2018. Lower lungs: Chronic bibasilar pleural thickening and minimal dependentlung atelectatic changes. Possible small sliding-type hiatal hernia noted. Liver, Gallbladder and Spleen: Liver is 17.6 cm in length and showed known2 cystic lesions, and one in the left lobe and one in the right lobe,unchanged. Cholecystectomy noted. Spleen measures approximately 11.5 x 5.8cm and adjacent to the anterior edge of the spleen, there is an ywobbeeus68 mm splenule. Mild generalized dilatation of the extrahepatic biliaryducts noted along with a long cystic duct remnant. Common hepatic duct is 8to 9 mm in diameter. There is minimal dilatation of the main pancreaticduct. Peritoneum: ?No free air or free fluid. No lymphadenopathy. Pancreas and Adrenals: A tiny 5 mm cystic lesion is seen in the anteriorsurface of the proximal body region of the pancreas, very faintlyvisualized in retrospect in the previous study, unchanged. No enhancinglesions in the pancreas. Normal adrenal glands. Kidneys and Ureters: ?No visible calculi in the renal collecting systems. No hydroureter or hydronephrosis. Vessels: Atherosclerosis. No abdominal aortic aneurysm. Long stricture isseen in the proximal SMA, with estimated severity of the percent,unchanged. Retroperitoneum: No abnormal fluid or lymphadenopathy. Bowel: No acute findings. Normal appendix is visualized. Bladder and Reproductive Organs: No gross pathology in the unopacifiedurinary bladder except for mild thickening of the bladder zavala which couldbe due to combination of incomplete luminal distention and moderatelyenlarged prostate gland. Bones: No aggressive bone lesions. No compression deformity in the lumbarvertebral bodies. No signs of AVN in the femoral heads. Soft tissues: Small direct type fat containing bilateral inguinal herniasuspected. CONCLUSION:1. No acute intra-abdominal or pelvic abnormalities detected.2. S/P cholecystectomy.3. Moderate atherosclerosis of the aorta and iliac arteries withapproximately 50% stricture of the lower abdominal aorta just above thebifurcation, long 50-60% stricture in the proximal SMA, unchanged whencompared with October 2018 study.4. Cystic lesions, one in the left lobe and one in the right lobe of theliver, unchanged. Pamb, Radiant Results Inft User - 10/21/2019 9:34 AM CSTCT Abdomen and Pelvis with intravenous contrast.CLINICAL HISTORY: Abdominal infection, including peritonitis.DOSE: Up-to-date CT equipment and radiation dose reduction techniques wereemployed. CTDIvol: 4.14 mGy. DLP: 195 mGy-cm.TECHNIQUE : Contiguous axial imaging from the level of the lung basesthrough the pubic symphysis were performed after the uncomplicatedadministration of Omnipaque contrast material. Coronal and sagittalreconstructions were obtained. Auto mA and/or iterative reconstruction wereused to reduce radiation dose.FINDINGS: Comparison is made with previous CT scan of 11/04/2018.Lower lungs: Chronic bibasilar pleural thickening and minimal dependentlung atelectatic changes. Possible small sliding-type hiatal hernia noted.Liver, Gallbladder and Spleen: Liver is 17.6 cm in length and showed known2 cystic lesions, and one in the left lobe and one in the right lobe,unchanged. Cholecystectomy noted. Spleen measures approximately 11.5 x 5.8cm and adjacent to the anterior edge of the spleen, there is an rhuvyntth72 mm splenule. Mild generalized dilatation of the extrahepatic biliaryducts noted along with a long cystic duct remnant. Common hepatic duct is 8to 9 mm in diameter. There is minimal dilatation of the main pancreaticduct.Peritoneum: No free air or free fluid. No lymphadenopathy.Pancreas and Adrenals: A tiny 5 mm cystic lesion is seen in the anteriorsurface of the proximal body region of the pancreas, very faintlyvisualized in retrospect in the previous study, unchanged. No enhancinglesions in the pancreas. Normal adrenal glands.Kidneys and Ureters: No visible calculi in the renal collecting systems. No hydroureter or hydronephrosis. Vessels: Atherosclerosis. No abdominal aortic aneurysm. Long stricture isseen in the proximal SMA, with estimated severity of the percent,unchanged.Retroperiton eum: No abnormal fluid or lymphadenopathy.Bowel: No acute findings. Normal appendix is visualized.Bladder and Reproductive Organs: No gross pathology in the unopacifiedurinary bladder except for mild thickening of the bladder zavala which couldbe due to combination of incomplete luminal distention and moderatelyenlarged prostate gland.Bones: No aggressive bone lesions. No compression deformity in the lumbarvertebral bodies. No signs of AVN in the femoral heads.Soft tissues: Small direct type fat containing bilateral inguinal herniasuspected.CONCLUSION:1. No acute intra-abdominal or pelvic abnormalities detected.2. S/P cholecystectomy.3. Moderate atherosclerosis of the aorta and iliac arteries withapproximately 50% stricture of the lower abdominal aorta just above thebifurcation, long 50-60% stricture in the proximal SMA, unchanged whencompared with October 2018 study.4. Cystic lesions, one in the left lobe and one in the right lobe of theliver, unchanged. aPTT 2019-10-21 15:06:00 Test Item Value Reference Range Interpretation Comme nts APTT Patient (test code = See_Comment [ Automated message] The 3173-2) system which ge nerated this result tra nsmitted reference range : 23 - 38 Seconds. The re ference range was not u sed to interpret this result as normal/abnormal . HARI (test code = HARI) The [facility] patient population mean normal value for aPTT is 30 seconds. Lab Interpretation (test Normal code = 88260-1) [facility]th[facility] ([facility] / [id number] 15:06:00 Test Item Value Reference Range Interpretation Comments PROTIME PATIENT (test See_Comment [Auto mated message] code = 5964-2) The system wh ich generated this result transmitted ref erence range: 12.0 - 1 4.7 Seconds. The re ference range was not u sed to interpret this result as normal/abnor mal. INR (test code = 6301-6) Nor mal INR <1.1; Warfarin Therap eutic range 2.0 to 3. 0 or 2.5 to 3.5, dep ending upon the indica tions. Lab Interpretation (test Normal code = 77748-8) [facility] CenterTroponin [id number] 14:57:00 Test Item Value Reference Range Interpretation Comments TROPONIN I (test <0.012 See_Comment [Automated code = 9605925393) message] The system which generated this result transmitted reference range : <=0.034 ng/mL. The reference range was not used to interpr et this result as normal/abnormal . HARI (test code = Equal or Less than HARI) 0.034 ng/ml---Normal ?Note: Cardiac troponin begins to rise 3-4 hours after the onset of ischemia. Repeat in 4-6 hours if the sample was drawn within 3-4 hours of the onset of the symptom and found normal. Between 0.035 and 0.120 ng/mL--- Borderline. Questionable myocardial injury or necrosis ? ?Note: Serial measurement may be necessary to confirm or exclude the diagnosis of myocardial injury or necrosis; Clinical correlation (symptoms, EKGs, imaging studies, and others) required; Repeat in 4-6 hours if clinically indicated. ? Equal or Higher than 0.121 ng/mL---Abnormal. Myocardial Injury or Necrosis Likely ? Biotin has been reported to cause a negative bias, interpret results relative to patient's use of biotin. ? Lab Interpretation Normal (test code = 91182-9) [facility] CenterN-TERMINAL [id number] 14:54:00 Test Item Value Reference Range Interpretation Comments NT-proBNP (test code 52 pg/mL See_Comment [Autom ated = 8600538373) message] The system which generated this result transmitted reference range : <=125. The reference range was not used to interpret this result as normal/abnormal . HARI (test code = HARI) Biotin has been reported to cause a negative bias, interpret results relative to patient's use of biotin. Lab Interpretation Normal (test code = 04792-9) [facility] CenterComplete Metabolic [id number] 14:45:00 Test Item Value Reference Range Interpretation Comments NA (test code = 141 mmol/L 135-145 9719392054) K (test code = 3.9 mmol/L 3.5-5 2334362316) CL (test code = 106 mmol/L 98-108 1923419006) CO2 TOTAL (test code = 28 mmol/L 23-31 3853605785) AGAP (test code = 2-16 7300159013) BUN (test code = 19 mg/dL 7-23 9671572706) GLUCOSE (test code = 98 mg/dL 70-110 8053302851) CREATININE (test code 0.83 mg/dL 0.6-1.25 = 2101439438) TOTAL BILI (test code 0.7 mg/dL 0.1-1.1 = 6233014518) CALCIUM (test code = 9.1 mg/dL 8.6-10.6 7698006506) T PROTEIN (test code = 6.9 g/dL 6.3-8.2 7289747257) ALBUMIN (test code = 4.3 g/dL 3.5-5 2916891186) ALK PHOS (test code = 67 U/L 34-122 1501090482) ALTv (test code = 21 U/L 5-50 1742-6) AST(SGOT) (test code = 26 U/L 13-40 8313300424) eGFR Calculation mL/min/1.73m2 (Non-) (test code = 7659525371) eGFR Calculation mL/min/1.73m2 () (test code = 1828618328) HARI (test code = HARI) Association of Glomerular Filtration Rate (GFR) and Staging of Kidney Disease* + -+ + ---+| GFR (mL/min/1.73 m2) ?| With Kidney Damage ?| ?Without Kidney Damage+ -------+ ------+ ---------+| ?>90 ?| ?Stage one ?| ? Normal ?+ --+ -+ ----+| ?60-89 ?| ?Stage two ?| ? Decreased GFR ? + -+ + ---+| ?30-59 ?| ?Stage three ?| ? Stage three ? + -+ + ---+| ?15-29 ?| ?Stage four ? | ? Stage four ?+ --+ -+ ----+| ?<15 (or dialysis) ? ?| ?Stage five ? | ? Stage five ?+ --+ -+ ----+ *Each stage assumes the associated GFR level has been in effect for at least three months. ?Stages 1 to 5, with or without kidney disease, indicate chronic kidney disease. Notes: Determination of stages one and two (with eGFR >59mL/min/1.73 m2) requires estimation of kidney damage for at least three months as defined by structural or functional abnormalities of the kidney, manifested by either:Pathological abnormalities or Markers of kidney damage (including abnormalities in the composition of the blood or urine or abnormalities in imaging tests). [facility] CenterLipase, [id number] 14:45:00 Test Item Value Reference Range Interpretation Comments LIPASE (test code = 4988307600) 491 U/L 0-220 H Lab Interpretation (test code = Abnormal 48307-5) [facility] CenterUrinalysis2020-02-12 14:37:00 Test Item Value Reference Range Interpretation Comments APPEARANCE (test code = Clear Clear 9523815608) COLOR (test code = Yellow Yellow 8608653426) PH (test code = 4.8-8.0 0676403298) SP GRAVITY (test code = 1.003-1.030 3881445753) GLU U QUAL (test code = Normal Normal 7143570746) BLOOD (test code = Negative Negative 6785296697) KETONES (test code = Negative Negative 6229631894) PROTEIN (test code = Negative Negative 2887-8) UROBILIN (test code = Normal Normal 6182921223) BILIRUBIN (test code = Negative Negative 9606086939) NITRITE (test code = Negative Negative 0932273326) LEUK RIMA (test code = Negative Negative 6974350546) RBC/HPF (test code = See_Comment [Autom ated message] 3467906222) The system [employer] generated this result transmitted ref erence range: 0 - 3 HP F. The reference range was not used to int erpret this result as normal/abnormal . WBC/HPF (test code = See_Comment [Autom ated message] 7735195961) The system [employer] generated this result transmitted ref erence range: 0 - 5 HP F. The reference range was not used to int erpret this result as normal/abnormal . BACTERIA (test code = Negative Negative 1936610415) MUCOUS (test code = Slight Negative LPF A 5012747654) Lab Interpretation (test Abnormal code = 54450-8) [facility] CenterCBC WITH [id number] 14:34:00 Test Item Value Reference Range Interpretation Comments WBC (test code = See_Comment [Automated message] 6690-2) The system [employer] generated this result transmitted ref erence range: 4.20 - 1 0.70 10*3/?L. The re ference range was not u sed to interpret this result as normal/abnor mal. RBC (test code = See_Comment [Automated message] 789-8) The system [employer] generated this result transmitted ref erence range: 4.26 - 5 .52 10*6/?L. The re ference range was not u sed to interpret this result as normal/abnor mal. HGB (test code = 15.7 g/dL 12.2-16.4 718-7) HCT (test code = 47.6 % 38.4-49.3 4544-3) MCV (test code = 90.3 fL 81.7-95.6 787-2) MCH (test code = 29.8 pg 26.1-32.7 785-6) MCHC (test code = 33.0 g/dL 31.2-35 786-4) RDW-SD (test code 42.3 fL 38.5-51.6 = 85983-5) RDW-CV (test code 12.9 % 12.1-15.4 = 788-0) PLT (test code = See_Comment [Automated message] 777-3) The system [employer] generated this result transmitted ref erence range: 150 - 32 8 10*3/?L. The re ference range was not u sed to interpret this result as normal/abnor mal. MPV (test code = 10.3 fL 9.8-13 24075-3) NRBC/100 WBC (test See_Comment [Automat ed message] code = 9299715597) The syste m which generated this result transmitted ref erence range: 0.0 - 10 .0 /100 WBCs. The refer ence range was not u sed to interpret this result as normal/abnor mal. NRBC x10^3 (test <0.01 See_Comment [Automated message] code = 3328471034) The syste m which generated this result transmitted ref erence range: 10*3/?L. The reference range was not used to interpr et this result as normal/abnormal . GRAN MAT (NEUT) % 69.2 % (test code = 770-8) IMM GRAN % (test 0.30 % code = 4610964725) LYMPH % (test code 17.0 % = 736-9) MONO % (test code 7.1 % = 5905-5) EOS % (test code = 5.5 % 713-8) BASO % (test code 0.9 % = 706-2) GRAN MAT 4.87 10*3/uL 1.99-6.95 x10^3(ANC) (test code = 7434544900) IMM GRAN x10^3 <0.03 0-0.06 (test code = 6185660633) LYMPH x10^3 (test 1.20 10*3/uL 1.09-3.23 code = 731-0) MONO x10^3 (test 0.50 10*3/uL 0.36-1.02 code = 742-7) EOS x10^3 (test 0.39 10*3/uL 0.06-0.53 code = 711-2) BASO x10^3 (test 0.06 10*3/uL 0.01-0.09 code = 704-7) [facility]"
[2022-05-03 09:16] LABS: Urine Blood Trace-intact (Negative); Urine Glucose Negative (Negative); Urine Protein Negative (Negative); Urine Specific Gravity >=1.030 (1.005-1.030); Urine pH 5.5 (5.0-7.0)
[2022-05-03 09:19] LABS: Absolute Lymphocytes (CBC) 1.1 K/uL (0.7-4.9); Hematocrit 44.4 % (39.6-49.0); Lymphocytes % 15.6 % (15.3-44.8); MCV 87.5 fL (80-100); MPV 8.6 fL (7.6-11.3); RBC Red Blood Cell Count 5.07 M/uL (4.33-5.43)
[2022-05-03 09:29] LABS: Urine Bacteria <20 /HPF (<20); Urine Mucus 1+ /HPF (None Seen); Urine RBC <5 /HPF (None Seen)
[2022-05-03 09:37] LABS: Albumin 3.5 g/dL (3.4-5.0); Bilirubin Total 0.5 mg/dL (0.2-1.0); Potassium 3.6 mmol/L (3.5-5.1); Protein, Total 6.7 g/dL (6.4-8.2)
[2022-05-03] MEDS ORDERED: METHYLPREDNISOLONE 125 MG INJ ONE (10:26)
[2022-05-03] MEDS ORDERED: DIPHENHYDRAMINE 50 MG/ML VIAL ONE (10:26)
--- NOTE | 2022-05-03 10:35 | RAD REPORT ---
EXAM DESCRIPTION: CT - Abdomen Pelvis W Contrast - 05/03/2022 10:10 am CLINICAL HISTORY: Right sided abdominal pain/tenerness COMPARISON: No comparisons TECHNIQUE: Biphasic, helical CT imaging of the abdomen and pelvis was performed following 100 ml non -ionic IV contrast. No oral contrast administered. All CT scans are performed using dose optimization technique as appropriate and may include automated exposure control or mA/KV adjustment according to patient size. FINDINGS: No suspicious findings in the lung bases. The liver, spleen, and pancreas show no suspicious findings. Benign hepatic cysts are present largest 3.8 cm in the lateral inferior right lobe. Gallbladder is absent. Mild dilatation of the biliary devang e is within normal limits for a post cholecystectomy patient. Duct stones can be occult though an acu te biliary process is not suspected. Symmetric renal function is seen with no hydronephrosis or suspicious renal mass. No pyelonephritis o r acute parenchymal process. No bladder abnormalities. No adrenal abnormalities. No dilated bowel loops or bowel wall thickening. Appendix is normal. Moderate stool volume seen in th e right-side of the colon. No free air, free fluid or inflammatory stranding. No hernia, mass or bul ky lymphadenopathy. No suspicious bony findings. IMPRESSION: Contrast enhanced CT abdomen and pelvis showing no no acute or emergent finding. The degree of biliary tree dilatation is within normal range for a post cholecystectomy patient.
--- NOTE | 2022-05-03 11:25 | EDPHYS ---
Physician Documentation [facility] Name: Sirena Peters Age: 66 yrs Sex: Male : 1955 Arrival Date: 05/03/2022 Time: 08:30 Bed 13 Private MD: [facility] ED Physician Yuri Camacho HPI: 05/03 09:08 This 66 yrs old Male presents to ER via Unassigned with complaints of ms3 Abdominal Pain. 09:08 The patient presents with abdominal pain in the right upper quadrant, right lower ms3 quadrant. Onset: The symptoms/episode began/occurred yesterday, Has occurred intermittently over 5 years. The symptoms do not radiate. Associated signs and symptoms: none. The symptoms are described as sharp. Modifying factors: The symptoms are alleviated by nothing, the symptoms are aggravated by Defecation. Severity of pain: At its worst the pain was moderate in the emergency department the pain is unchanged. Historical: - Allergies: 10:23 PENICILLINS; iw 10:23 popcorn shrimp; iw - PMHx: 10:23 Hypertension; Kidney stones; iw - PSHx: 10:23 Cholecystectomy; hernia repair; L4-L5 back SX; iw ROS: 09:08 Constitutional: Negative for fever, and chills. Neck: Negative for injury, pain, and ms3 swelling, Cardiovascular: Negative for chest pain, and palpitations. Respiratory: Negative for shortness of breath, cough, wheezing, and pleuritic chest pain, Abdomen/GI: Negative for abdominal pain, nausea, vomiting, diarrhea, and constipation, MS/Extremity: Negative for injury and deformity, Skin: Negative for injury, rash, and discoloration. 09:08 All other systems are negative. Exam: 09:08 Constitutional: This is a well developed, well nourished patient who is awake, alert, ms3 and in no acute distress. Head/Face: Normocephalic, atraumatic. Neck: Trachea midline, no cervical lymphadenopathy. Supple, full range of motion without nuchal rigidity, or vertebral point tenderness. No Meningismus. Chest/axilla: Normal chest wall appearance and motion. Nontender with no deformity. Cardiovascular: Regular rate and rhythm with a normal S1 and S2. No gallops, murmurs, or rubs. Normal PMI, no JVD. No pulse deficits. Respiratory: Lungs have equal breath sounds bilaterally, clear to auscultation and percussion. No rales, rhonchi or wheezes noted. No increased work of breathing, no retractions or nasal flaring. Abdomen/GI: Soft, non-tender, with normal bowel sounds. No distension or tympany. No guarding or rebound. No evidence of tenderness throughout. Skin: Warm, dry with normal turgor. Normal color with no rashes, no lesions, and no evidence of cellulitis. MS/ Extremity: Pulses equal, no cyanosis. Psych: Awake, alert, with orientation to person, place and time. Behavior, mood, and affect are within normal limits. Vital Signs: 10:39 BP 136 / 100; Pulse 80; Resp 16; Temp 98.0; Pulse Ox 100% on R/A; iw MDM: 09:22 Differential diagnosis: bowel obstruction, cholecystitis, Cholelithiasis, ms3 diverticulitis, non-specific abd pain, urinary tract infection. 10:18 Patient medically screened. ms3 11:24 Data reviewed: vital signs, nurses notes, lab test result(s), radiologic studies, and ms3 as a result, I will discharge patient. Counseling: I had a detailed discussion with the patient and/or guardian regarding: the historical points, exam findings, and any diagnostic results supporting the discharge/admit diagnosis, lab results, radiology results, the need for outpatient follow up. ED course: Patient with eyes burning and mild swelling of bilateral eyes after returning from CT. Patient given Benadryl and Solu-Medrol at that time. Patient symptoms have since resolved and patient states he would like to leave at this time. Discussed results with patient. Patient understands and agrees with plan. All questions were answered. Return precautions discussed include worsening symptoms, or any other concerns.. 05/03 08:47 Order name: CBC with Diff; Complete Time: 10:19 ms3 05/03 08:47 Order name: CMP; Complete Time: 10:19 ms3 05/03 08:47 Order name: Lipase; Complete Time: 10:19 ms3 05/03 08:47 Order name: Urine Microscopic Only; Complete Time: 10:19 ms3 05/03 08:47 Order name: CT Abd/Pelvis - IV Contrast Only; Complete Time: 10:45 ms3 05/03 09:16 Order name: Urine Dipstick-Ancillary; Complete Time: 10:19 EDMS 05/03 08:47 Order name: IV Saline Lock; Complete Time: 09:11 ms3 05/03 08:47 Order name: Labs collected and sent; Complete Time: 09:11 ms3 05/03 08:47 Order name: Urine Dipstick-Ancillary (obtain specimen); Complete Time: 09:16 ms3 Administered Medications: 10:22 Drug: Benadryl (diphenhydrAMINE) 50 mg Route: IVP; Site: right antecubital; iw 10:55 Follow up: Response: No adverse reaction; Marked relief of symptoms iw 10:22 Drug: SOLU-Medrol (methylPrednisoLONE) 125 mg Route: IVP; Site: right antecubital; iw 10:55 Follow up: Response: No adverse reaction; Marked relief of symptoms iw Disposition Summary: 05/03/22 11:24 Discharge Ordered Location: Home ms3 Condition: Stable ms3 Diagnosis - Abdominal pain, Generalized ms3 - Contrast Allergy ms3 Followup: ms3 - With: Bora Parikh MD - When: 2 - 3 days - Reason: Re-evaluation by your physician Discharge Instructions: - Discharge Summary Sheet ms3 - Abdominal Pain, Adult ms3 Forms: - Medication Reconciliation Form ms3 - Thank You Letter ms3 - Antibiotic Education ms3 - Work release form iw - Prescription Opioid Use ms3 Signatures: Dispatcher [employer] Alem Mancilla, SABRINA RN Yuri Eller DO DO ms3
--- NOTE | 2022-05-03 11:25 | ER ---
Nurse's Notes [facility] Name: Sirena Peters Age: 66 yrs Sex: Male : 1955 Arrival Date: 05/03/2022 Time: 08:30 Bed 13 Private MD: Kirill Liriano Diagnosis: Abdominal pain, Generalized;Contrast Allergy Presentation: 05/03 09:26 Coronavirus screen: At this time, the client does not indicate any symptoms associated iw with coronavirus-19. Ebola Screen: Patient negative for fever greater than or equal to 101.5 degrees Fahrenheit, and additional compatible Ebola Virus Disease symptoms Patient denies exposure to infectious person. Patient denies travel to an Ebola-affected area in the 21 days before illness onset. No symptoms or risks identified at this time. Risk Assessment: Do you want to hurt yourself or someone else? Patient reports no desire to harm self or others. 09:26 Acuity: LIANG 3 iw 09:26 Method Of Arrival: Ambulatory iw 09:28 Chief complaint: Patient states: RUQ right abd pain since yesterday. Initial Sepsis iw Screen: Does the patient meet any 2 criteria? No. Patient's initial sepsis screen is negative. Does the patient have a suspected source of infection? No. Patient's initial sepsis screen is negative. Onset of symptoms was May 05, 2022. Triage Assessment: 09:35 General: Appears in no apparent distress. Behavior is calm, cooperative. Pain:. GI: No iw signs and/or symptoms were reported involving the gastrointestinal system. Abdomen is flat, non-distended. Historical: - Allergies: 10:23 PENICILLINS; iw 10:23 popcorn shrimp; iw - PMHx: 10:23 Hypertension; Kidney stones; iw - PSHx: 10:23 Cholecystectomy; hernia repair; L4-L5 back SX; iw Screenin:31 Abuse screen: Denies threats or abuse. Denies injuries from another. Nutritional iw screening: No deficits noted. Tuberculosis screening: No symptoms or risk factors identified. Fall Risk IV access (20 points). Assessment: 10:23 Reassessment: pt brought back to ER, c/o chest pain, SOB, burning eyes, swelling to iw eyes . Dr. Camacho notified,verbal order for solu-medrol and Benadryl given now. 11:30 Reassessment: Patient appears in no apparent distress at this time. Patient and/or iw family updated on plan of care and expected duration. Pain level reassessed. Patient is alert, oriented x 3, equal unlabored respirations, skin warm/dry/pink. Patient states feeling better. Patient states symptoms have improved. Vital Signs: 10:39 BP 136 / 100; Pulse 80; Resp 16; Temp 98.0; Pulse Ox 100% on R/A; iw ED Course: 08:30 Patient arrived in ED. am2 08:30 Kirill Liriano DO is Private Physician. am2 08:37 Yuri Camacho DO is Attending Physician. ms3 09:11 Inserted saline lock: 20 gauge in right antecubital area, using aseptic technique. kc6 Blood collected. 09:11 CBC with Diff Sent. kc6 09:11 CMP Sent. kc6 09:11 Lipase Sent. kc6 09:16 Urine Microscopic Only Sent. kc6 09:27 Triage completed. iw 09:28 Arm band placed on. iw 10:12 CT Abd/Pelvis - IV Contrast Only In Process Unspecified. EDMS 10:22 Alem Garcia, RN is Primary Nurse. iw 10:30 Patient has correct armband on for positive identification. iw 11:22 Bora Parikh MD is Referral Physician. ms3 11:31 No provider procedures requiring assistance completed. IV discontinued, intact, iw bleeding controlled, No redness/swelling at site. Pressure dressing applied. Administered Medications: 10:22 Drug: Benadryl (diphenhydrAMINE) 50 mg Route: IVP; Site: right antecubital; iw 10:55 Follow up: Response: No adverse reaction; Marked relief of symptoms iw 10:22 Drug: SOLU-Medrol (methylPrednisoLONE) 125 mg Route: IVP; Site: right antecubital; iw 10:55 Follow up: Response: No adverse reaction; Marked relief of symptoms iw Medication: 10:30 VIS not applicable for this client. iw Outcome: 11:24 Discharge ordered by . ms3 11:31 Discharged to home ambulatory. iw 11:31 Condition: good 11:31 Discharge instructions given to patient, Instructed on discharge instructions, follow up and referral plans. Demonstrated understanding of instructions, follow-up care. 11:32 Patient left the ED. iw Signatures: Dispatcher [employer] CLAUDIA Garcia, Alem, RN RN Luna Rivera am2 Yuri Camacho DO DO ms3 Alyx Norton kc6
[2022-05-03 12:22] VITALS: BP 136/100; TEMP 98; O2SAT 100
== END 2022-05-03 11:32 | disposition home or self-care (01) ==
LOC: ER 08:28
DX: R10.84 Generalized abdominal pain (principal); Z91.041 Radiographic dye allergy status; I10 Essential (primary) hypertension; Z87.442 Personal history of urinary calculi; Z88.0 Allergy status to penicillin; Z91.013 Allergy to seafood
CPT/HCPCS: 85025; 36415; 83690; 80053; 74177; 96375; 96374; 99284; Q9967; J1200; J2930; 81003; 81015

== ENCOUNTER 2022-05-31 12:20 | Observation (INO) | payer OTHER ==
--- OUTSIDE RECORDS SUMMARY | 2022-05-31 12:26 | XMS REPORT | Continuity of Care Document ---
:1955 Author Organization [facility] t Address [address] [place] [address] [address]. [address] [place] [address] Care Team Providers Name Role Phone Estephania Low MD Primary Care Physician [phone] Kirill Liriano Attending Clinician Unavailable SADIA MARTINEZ [...] 2, [facility] Attending Clinician Unavailable Estephania Low MD Attending Clinician [phone] Doctor Unassigned, [place] Attending Clinician Unavailable XENA BUSTAMANTE Attending Clinician Unavailable Mary Nava MD Attending Clinician Kvng Ortega MD Attending Clinician KVNG ORTEGA Attending Clinician Unavailable KVNG ORTEGA Admitting Clinician Unavailable Payers Payer Name Policy Type Policy Number Effective Date Expiration Date S ource WELLMED/LIANNE [id number] 2020 MEDICARE ADVANTAGE 00:00:00 Problems Condition Condition [...] 2-24 it y of on on 00:00: [place] [facility] Constipati Constipati Disease Active U nivers on, on, 2-24 ity [place] unspecif[place] [facility] const[place] constipati Br anch on type on type Tobacco Tobacco Disease Active Univers abuse abuse 2-24 ity of 00:00: [place] [facility] H. pylori H. pylori Disease Active Uni vers infection infection 3-19 ity of 00:00: [place] [facility] Abdominal Abdominal Disease Active Uni vers pain pain 2-26 ity of 00:00: [place] 00 [facility] Essential Essential Disease Active Uni vers hypertensi hypertensi 6-07 it y of on on 00:00: [place] [facility] Allergies, Adverse Reactions, Alerts Allergy Allergy Status Severity Reaction(s) Onset Inactive Treating Comm ents Source Name Type Date Date Clinician Morphine Propensi Active Hives Univer s ty to 2-12 ity of adverse 00:00: [place] reaction 00 Medical Branch MORPHINE DRUG Active Hives Univers INGREDI 2-12 ity of 00:00: [place] 00 Medical Branch Shrimp Propensi Active Hives Univers ty to 5-21 ity of adverse 00:00: [place] reaction 00 Medical s Branch SHRIMP DRUG Active Hives Univers INGREDI 5-21 ity of 00:00: [place] 00 [facility] Social History Social Habit Start Date Stop Date Quantity Comments Source History of Smokes tobacco University of tobacco use daily [facility] Exposure to 2022-03-16 2022-03-26 Not sure University of SARS-CoV-2 00:00:00 11:00:00 [facility] (event) Branch Alcohol intake 2019-11-02 2019-11-02 Current University of 00:00:00 00:00:00 non-drinker of [facility] alcohol (finding) Sophia Tobacco use and 2017-01-28 2017-01-28 Smokeless tobacco Un iversity of exposure 00:00:00 00:00:00 non-user [facility] Sex Ass[birth year] At [birth year] Universit y of 00:00:00 00:00:00 [facility] Smoking Status Start Date Stop Date Source Smokes tobacco daily 2017-01-28 00:00:00 Univers ity of [facility] Medications Ordered Filled Start Stop Current Ordering Indication Dosage Frequency Signature Comments Components Source Medication Medication Date Date Medication? Clinician (SIG) Name Name Meloxicam Meloxicam 2020- No Kirill 1 tablet Common 03-10 Liriano as needed Spirit 00:00: 00:00 for severe - [facility] 00 :00 pain [facility] pantoprazol 2019-0 Yes [id number] 40mg Take 1 Univers e 40 mg EC 2-18 tablet by ity of tablet 00:00: mouth [place] 00 daily. Medical Branch pantoprazol 2020-0 Yes [id number] 40mg Take 1 Univers e 40 mg [...] mouth daily. Medical Branch cilostazoL 2020-0 Yes [id number] 50mg Take 1 U nivers 50 mg 2-14 tablet by ity of tablet 00:00: mouth 2 (two) Medical times Branch daily. docusate 2020-0 Yes [id number] 100mg Take 1 Un sergio 100 mg 2-14 capsule by ity of capsule 00:00: mouth 2 (two) Medical times Branch daily as needed for Constipati on. sennosides 2020-0 Yes [id number] 8.6mg Take 1 Univers 8.6 mg 2-14 tablet by ity of tablet 00:00: mouth 00 daily. Medical Branch meperidine 2019-0 Yes [id number] 50mg Take 1 Univers 50 mg 2-14 tablet by ity of tablet 00:00: mouth 00 every 6 Medical (six) Branch hours as needed for Pain (scale 7-10) (Abdominal Pain). atorvastati 2020-0 Yes [id number] 10mg Take 1 Univers n 10 mg 2-14 tablet by ity of tablet 00:00: mouth at 00 bedtime. Medical Branch cilostazoL 2020-0 Yes [id number] 50mg Take 1 U nivers 50 mg 2-14 tablet by ity of tablet 00:00: mouth (two) Medical times Branch daily. docusate 2020-0 Yes [id number] 100mg Take 1 Un sergio 100 mg 2-14 capsule by ity of capsule 00:00: mouth (two) Medical times Branch daily as needed for Constipati on. sennosides 2020-0 Yes [id number] 8.6mg Take 1 Univers 8.6 mg 2-14 tablet by ity of tablet 00:00: mouth 00 daily. Medical Branch meperidine 2020-0 Yes [id number] 50mg Take 1 Univers 50 mg 2-14 tablet by ity of tablet 00:00: mouth [place] 00 every 6 Medical (six) Branch hours as needed for Pain (scale 7-10) (Abdominal Pain). atorvastati 2020-0 Yes [id number] 10mg Take 1 Univers n 10 mg 2-14 tablet by ity of tablet 00:00: mouth at 00 bedtime. Medical Branch cilostazoL 2020-0 Yes [id number] 50mg Take 1 U nivers 50 mg 2-14 tablet by ity of tablet 00:00: mouth 2 (two) Medical times Branch daily. docusate 2020-0 Yes [id number] 100mg Take 1 Un sergio 100 mg 2-14 capsule by ity of capsule 00:00: mouth 2 (two) Medical times Branch daily as needed for Constipati on. sennosides 2020-0 Yes [id number] 8.6mg Take 1 Univers 8.6 mg 2-14 tablet by ity of tablet 00:00: mouth 00 daily. Medical Branch meperidine 2020-0 Yes [id number] 50mg Take 1 Univers 50 mg 2-14 tablet by ity of tablet 00:00: mouth 00 every 6 Medical (six) Branch hours as needed for Pain (scale 7-10) (Abdominal Pain). atorvastati 2020-0 Yes [id number] 10mg Take 1 Univers n 10 mg 2-14 tablet by ity of tablet 00:00: mouth at bedtime. Medical Branch cilostazoL 2020-0 Yes [id number] 50mg Take 1 U nivers 50 mg 2-14 tablet by ity of tablet 00:00: mouth (two) Medical times Branch daily. docusate 2020-0 Yes [id number] 100mg Take 1 Un sergio 100 mg 2-14 capsule by ity of capsule 00:00: mouth (two) Medical times Branch daily as needed for Constipati on. sennosides 2020-0 Yes [id number] 8.6mg Take 1 Univers 8.6 mg 2-14 tablet by ity of tablet 00:00: mouth 00 daily. Medical Branch meperidine 2020-0 Yes [id number] 50mg Take 1 Univers 50 mg 2-14 tablet by ity of tablet 00:00: mouth [place] 00 every 6 Medical (six) Branch hours as needed for Pain (scale 7-10) (Abdominal Pain). atorvastati 2020-0 Yes [id number] 10mg Take 1 Univers n 10 mg 2-14 tablet by ity of tablet 00:00: mouth at 00 bedtime. Medical Branch cilostazoL 2020-0 Yes [id number] 50mg Take 1 U nivers 50 mg 2-14 tablet by ity of tablet 00:00: mouth 2 00 (two) Medical times Branch daily. docusate 2020-0 Yes [id number] 100mg Take 1 Un sergio 100 mg 2-14 capsule by ity of capsule 00:00: mouth 2 (two) Medical times Branch daily as needed for Constipati on. sennosides 2020-0 Yes [id number] 8.6mg Take 1 Univers 8.6 mg 2-14 tablet by ity of tablet 00:00: mouth [place] 00 daily. Medical Branch meperidine 2020-0 Yes [id number] 50mg Take 1 Univers 50 mg 2-14 tablet by ity of tablet 00:00: mouth [place] 00 every 6 Medical (six) Branch hours as needed for Pain (scale 7-10) (Abdominal Pain). atorvastati 2020-0 Yes [id number] 10mg Take 1 Univers n 10 mg 2-14 tablet by ity of tablet 00:00: mouth at 00 bedtime. Medical Branch cilostazoL 2020-0 Yes [id number] 50mg Take 1 U nivers 50 mg 2-14 tablet by ity of tablet 00:00: mouth 2 (two) Medical times Branch daily. docusate 2020-0 Yes [id number] 100mg Take 1 Un sergio 100 mg 2-14 capsule by ity of capsule 00:00: mouth (two) Medical times Branch daily as needed for Constipati on. sennosides 2020-0 Yes [id number] 8.6mg Take 1 Univers 8.6 mg 2-14 tablet by ity of tablet 00:00: mouth 00 daily. Medical Branch meperidine 2020-0 Yes [id number] 50mg Take 1 Univers 50 mg 2-14 tablet by ity of tablet 00:00: mouth [place] 00 every 6 Medical (six) Branch hours as needed for Pain (scale 7-10) (Abdominal Pain). atorvastati 2020-0 Yes [id number] 10mg Take 1 Univers n 10 mg 2-14 tablet by ity of tablet 00:00: mouth at [place] 00 bedtime. Medical Branch cilostazoL 2020-0 Yes [id number] 50mg Take 1 U nivers 50 mg 2-14 tablet by ity of tablet 00:00: mouth 2 [place] 00 (two) Medical times Branch daily. docusate 2020-0 Yes [id number] 100mg Take 1 Un sergio 100 mg 2-14 capsule by ity of capsule 00:00: mouth 2 (two) Medical times Branch daily as needed for Constipati on. sennosides 2020-0 Yes [id number] 8.6mg Take 1 Univers 8.6 mg 2-14 tablet by ity of tablet 00:00: mouth 00 daily. Medical Branch meperidine 2020-0 Yes [id number] 50mg Take 1 Univers 50 mg 2-14 tablet by ity of tablet 00:00: mouth [place] 00 every 6 Medical (six) Branch hours as needed for Pain (scale 7-10) (Abdominal Pain). atorvastati 2020-0 Yes [id number] 10mg Take 1 Univers n 10 mg 2-14 tablet by ity of tablet 00:00: mouth at [place] 00 bedtime. Medical Branch cilostazoL 2020-0 Yes [id number] 50mg Take 1 U nivers 50 mg 2-14 tablet by ity of tablet 00:00: mouth 2 (two) Medical times Branch daily. docusate 2020-0 Yes [id number] 100mg Take 1 Un sergio 100 mg 2-14 capsule by ity of capsule 00:00: mouth 2 (two) Medical times Branch daily as needed for Constipati on. sennosides 2020-0 Yes [id number] 8.6mg Take 1 Univers 8.6 mg 2-14 tablet by ity of tablet 00:00: mouth 00 daily. Medical Branch meperidine 2020-0 Yes [id number] 50mg Take 1 Univers 50 mg 2-14 tablet by ity of tablet 00:00: mouth [place] 00 every 6 Medical (six) Branch hours as needed for Pain (scale 7-10) (Abdominal Pain). atorvastati 2020-0 Yes [id number] 10mg Take 1 Univers n 10 mg 2-14 tablet by ity of tablet 00:00: mouth at [place] 00 bedtime. Medical Branch cilostazoL 2020-0 Yes [id number] 50mg Take 1 U nivers 50 mg 2-14 tablet by ity of tablet 00:00: mouth 2 (two) Medical times Branch daily. docusate 2020-0 Yes [id number] 100mg Take 1 Un sergio 100 mg 2-14 capsule by ity of capsule 00:00: mouth 2 (two) Medical times Branch daily as needed for Constipati on. sennosides 2020-0 Yes [id number] 8.6mg Take 1 Univers 8.6 mg 2-14 tablet by ity of tablet 00:00: mouth [place] 00 daily. Medical Branch meperidine 2020-0 Yes [id number] 50mg Take 1 Univers 50 mg 2-14 tablet by ity of tablet 00:00: mouth [place] 00 every 6 Medical (six) Branch hours as needed for Pain (scale 7-10) (Abdominal Pain). atorvastati 2020-0 Yes [id number] 10mg Take 1 Univers n 10 mg 2-14 tablet by ity of tablet 00:00: mouth at 00 bedtime. Medical Branch cilostazoL 2020-0 Yes [id number] 50mg Take 1 U nivers 50 mg 2-14 tablet by ity of tablet 00:00: mouth (two) Medical times Branch daily. docusate 2020-0 Yes [id number] 100mg Take 1 Un sergio 100 mg 2-14 capsule by ity of capsule 00:00: mouth (two) Medical times Branch daily as needed for Constipati on. sennosides 2020-0 Yes [id number] 8.6mg Take 1 Univers 8.6 mg 2-14 tablet by ity of tablet 00:00: mouth 00 daily. Medical Branch meperidine 2020-0 Yes [id number] 50mg Take 1 Univers 50 mg 2-14 tablet by ity of tablet 00:00: mouth 00 every 6 Medical (six) Branch hours as needed for Pain (scale 7-10) (Abdominal Pain). atorvastati 2020-0 Yes [id number] 10mg Take 1 Univers n 10 mg 2-14 tablet by ity of tablet 00:00: mouth at 00 bedtime. Medical Branch cilostazoL 2020-0 Yes [id number] 50mg Take 1 U nivers 50 mg 2-14 tablet by ity of tablet 00:00: mouth 2 (two) Medical times Branch daily. docusate 2020-0 Yes [id number] 100mg Take 1 Un sergio 100 mg 2-14 capsule by ity of capsule 00:00: mouth (two) Medical times Branch daily as needed for Constipati on. sennosides 2020-0 Yes [id number] 8.6mg Take 1 Univers 8.6 mg 2-14 tablet by ity of tablet 00:00: mouth [place] 00 daily. Medical Branch meperidine 2020-0 Yes [id number] 50mg Take 1 Univers 50 mg 2-14 tablet by ity of tablet 00:00: mouth [place] 00 every 6 Medical (six) Branch hours as needed for Pain (scale 7-10) (Abdominal Pain). atorvastati 2020-0 Yes [id number] 10mg Take 1 Univers n 10 mg 2-14 tablet by ity of tablet 00:00: mouth at 00 bedtime. Medical Branch cilostazoL 2020-0 Yes [id number] 50mg Take 1 U nivers 50 mg 2-14 tablet by ity of tablet 00:00: mouth 2 (two) Medical times Branch daily. docusate 2020-0 Yes [id number] 100mg Take 1 Un sergio 100 mg 2-14 capsule by ity of capsule 00:00: mouth (two) Medical times Branch daily as needed for Constipati on. sennosides 2020-0 Yes [id number] 8.6mg Take 1 Univers 8.6 mg 2-14 tablet by ity of tablet 00:00: mouth 00 daily. Medical Branch meperidine 2020-0 Yes [id number] 50mg Take 1 Univers 50 mg 2-14 tablet by ity of tablet 00:00: mouth [place] 00 every 6 Medical (six) Branch hours as needed for Pain (scale 7-10) (Abdominal Pain). atorvastati 2020-0 Yes [id number] 10mg Take 1 Univers n 10 mg 2-14 tablet by ity of tablet 00:00: mouth at 00 bedtime. Medical Branch cilostazoL 2020-0 Yes [id number] 50mg Take 1 U nivers 50 mg 2-14 tablet by ity of tablet 00:00: mouth 2 (two) Medical times Branch daily. docusate 2020-0 Yes [id number] 100mg Take 1 Un sergio 100 mg 2-14 capsule by ity of capsule 00:00: mouth 2 (two) Medical times Branch daily as needed for Constipati on. sennosides 2020-0 Yes [id number] 8.6mg Take 1 Univers 8.6 mg 2-14 tablet by ity of tablet 00:00: mouth [place] 00 daily. Medical Branch meperidine 2020-0 Yes [id number] 50mg Take 1 Univers 50 mg 2-14 tablet by ity of tablet 00:00: mouth [place] 00 every 6 Medical (six) Branch hours as needed for Pain (scale 7-10) (Abdominal Pain). atorvastati 2020-0 Yes [id number] 10mg Take 1 Univers n 10 mg 2-14 tablet by ity of tablet 00:00: mouth at [place] 00 bedtime. Medical Branch cilostazoL 2020-0 Yes [id number] 50mg Take 1 U nivers 50 mg 2-14 tablet by ity of tablet 00:00: mouth 2 (two) Medical times Branch daily. docusate 2020-0 Yes [id number] 100mg Take 1 Un sergio 100 mg 2-14 capsule by ity of capsule 00:00: mouth 2 (two) Medical times Branch daily as needed for Constipati on. sennosides 2020-0 Yes [id number] 8.6mg Take 1 Univers 8.6 mg 2-14 tablet by ity of tablet 00:00: mouth 00 daily. Medical Branch meperidine 2020-0 Yes [id number] 50mg Take 1 Univers 50 mg 2-14 tablet by ity of tablet 00:00: mouth 00 every 6 Medical (six) Branch hours as needed for Pain (scale 7-10) (Abdominal Pain). atorvastati 2019-0 Yes [id number] 10mg Take 1 Univers n 10 mg 2-14 tablet by ity of tablet 00:00: mouth at [place] 00 bedtime. Medical Branch ibuprofen 2019-0 Yes [...] Liriano each [facility] 00:00: nostril - [facility] Montelukast Montelukast 2018- Yes Kirill 1 tablet Common Sodium Sodium 0-18 Liriano Spirit 00:00: - [facility] omeprazole 2019- Yes [id number] 20mg Take 1 Univers 20 mg 3-19 capsule by ity of capsule 00:00: mouth 2 [place] 00 (two) Medical times Branch daily. metroNIDAZO 2018- Yes [id number] 500mg Take 1 Univers LE 500 mg 3-19 tablet by ity o f tablet 00:00: mouth [place] 00 every 8 Medical (eight) Branch hours. amoxicillin 2019-0 Yes [id number] 1000mg Take 2 Univers 500 mg 3-19 capsules ity of capsule 00:00: by mouth 2 [place] 00 (two) Medical times Branch daily. tamsulosin 2019-0 Yes [id number] .4mg Take 1 Univers 0.4 mg 24 3-19 capsule by ity of hr capsule 00:00: mouth [place] 00 daily. Medical Branch omeprazole 2019-0 Yes [id number] 20mg Take 1 Univers 20 mg 3-19 capsule by ity of capsule 00:00: mouth 2 [place] 00 (two) Medical times Branch daily. metroNIDAZO 2019-0 Yes [id number] 500mg Take 1 Univers LE 500 mg 3-19 tablet by ity o f tablet 00:00: mouth [place] 00 every 8 Medical (eight) Branch hours. amoxicillin 2019-0 Yes [id number] 1000mg Take 2 Univers 500 mg 3-19 capsules ity of capsule 00:00: by mouth 2 [place] (two) Medical times Branch daily. tamsulosin 2019-0 Yes [id number] .4mg Take 1 Univers 0.4 mg 24 3-19 capsule by ity of hr capsule 00:00: mouth [place] 00 daily. Medical Branch omeprazole 2019-0 Yes [id number] 20mg Take 1 Univers 20 mg 3-19 capsule by ity of capsule 00:00: mouth 2 (two) Medical times Branch daily. omeprazole 2019-0 Yes [id number] 20mg Take 1 Univers 20 mg 3-19 capsule by ity of capsule 00:00: mouth 00 (two) Medical times Branch daily. metroNIDAZO 2019-0 Yes [id number] 500mg Take 1 Univers LE 500 mg 3-19 tablet by ity o f tablet 00:00: mouth [place] 00 every 8 Medical (eight) Branch hours. amoxicillin 2019-0 Yes [id number] 1000mg Take 2 Univers 500 mg 3-19 capsules ity of capsule 00:00: by mouth 2 [place] 00 (two) Medical times Branch daily. tamsulosin 2019-0 Yes [id number] .4mg Take 1 Univers 0.4 mg 24 3-19 capsule by ity of hr capsule 00:00: mouth [place] 00 daily. Medical Branch metroNIDAZO 2019-0 Yes [id number] 500mg Take 1 Univers LE 500 mg 3-19 tablet by ity o f tablet 00:00: mouth [place] 00 every 8 Medical (eight) Branch hours. amoxicillin 2019-0 Yes [id number] 1000mg Take 2 Univers 500 mg 3-19 capsules ity of capsule 00:00: by mouth 2 [place] 00 (two) Medical times Branch daily. omeprazole 2019-0 Yes [id number] 20mg Take 1 Univers 20 mg 3-19 capsule by ity of capsule 00:00: mouth 2 [place] 00 (two) Medical times Branch daily. metroNIDAZO 2019-0 Yes [id number] 500mg Take 1 Univers LE 500 mg 3-19 tablet by ity o f tablet 00:00: mouth [place] 00 every 8 Medical (eight) Branch hours. amoxicillin 2019-0 Yes [id number] 1000mg Take 2 Univers 500 mg 3-19 capsules ity of capsule 00:00: by mouth 2 [place] 00 (two) Medical times Branch daily. tamsulosin 2019-0 Yes [id number] .4mg Take 1 Univers 0.4 mg 24 3-19 capsule by ity of hr capsule 00:00: mouth [place] 00 daily. Medical Branch tamsulosin 2019-0 Yes [id number] .4mg Take 1 Univers 0.4 mg 24 3-19 capsule by ity of hr capsule 00:00: mouth [place] 00 daily. Medical Branch omeprazole 2019-0 Yes [id number] 20mg Take 1 Univers 20 mg 3-19 capsule by ity of capsule 00:00: mouth 2 [place] 00 (two) Medical times Branch daily. metroNIDAZO 2019-0 Yes [id number] 500mg Take 1 Univers LE 500 mg 3-19 tablet by ity o f tablet 00:00: mouth [place] 00 every 8 Medical (eight) Branch hours. amoxicillin 2019-0 Yes [id number] 1000mg Take 2 Univers 500 mg 3-19 capsules ity of capsule 00:00: by mouth 2 [place] 00 (two) Medical times Branch daily. tamsulosin 2019-0 Yes [id number] .4mg Take 1 Univers 0.4 mg 24 3-19 capsule by ity of hr capsule 00:00: mouth [place] 00 daily. Medical Branch omeprazole 2019-0 Yes [id number] 20mg Take 1 Univers 20 mg 3-19 capsule by ity of capsule 00:00: mouth 2 [place] 00 (two) Medical times Branch daily. metroNIDAZO 2019-0 Yes [id number] 500mg Take 1 Univers LE 500 mg 3-19 tablet by ity o f tablet 00:00: mouth [place] 00 every 8 Medical (eight) Branch hours. amoxicillin 2019-0 Yes [id number] 1000mg Take 2 Univers 500 mg 3-19 capsules ity of capsule 00:00: by mouth 2 [place] 00 (two) Medical times Branch daily. tamsulosin 2019-0 Yes [id number] .4mg Take 1 Univers 0.4 mg 24 3-19 capsule by ity of hr capsule 00:00: mouth [place] 00 daily. Medical Branch omeprazole 2019-0 Yes [id number] 20mg Take 1 Univers 20 mg 3-19 capsule by ity of capsule 00:00: mouth 2 (two) Medical times Branch daily. metroNIDAZO 2019-0 Yes [id number] 500mg Take 1 Univers LE 500 mg 3-19 tablet by ity o f tablet 00:00: mouth [place] 00 every 8 Medical (eight) Branch hours. amoxicillin 2019-0 Yes [id number] 1000mg Take 2 Univers 500 mg 3-19 capsules ity of capsule 00:00: by mouth 2 [place] 00 (two) Medical times Branch daily. tamsulosin 2019-0 Yes [id number] .4mg Take 1 Univers 0.4 mg 24 3-19 capsule by ity of hr capsule 00:00: mouth [place] 00 daily. Medical Branch omeprazole 2019-0 Yes [id number] 20mg Take 1 Univers 20 mg 3-19 capsule by ity of capsule 00:00: mouth 2 00 (two) Medical times Branch daily. metroNIDAZO 2019-0 Yes [id number] 500mg Take 1 Univers LE 500 mg 3-19 tablet by ity o f tablet 00:00: mouth [place] 00 every 8 Medical (eight) Branch hours. amoxicillin 2019-0 Yes [id number] 1000mg Take 2 Univers 500 mg 3-19 capsules ity of capsule 00:00: by mouth 2 [place] 00 (two) Medical times Branch daily. tamsulosin 2019-0 Yes [id number] .4mg Take 1 Univers 0.4 mg 24 3-19 capsule by ity of hr capsule 00:00: mouth [place] 00 daily. Medical Branch omeprazole 2019-0 Yes [id number] 20mg Take 1 Univers 20 mg 3-19 capsule by ity of capsule 00:00: mouth 2 [place] 00 (two) Medical times Branch daily. omeprazole 2019-0 Yes [id number] 20mg Take 1 Univers 20 mg 3-19 capsule by ity of capsule 00:00: mouth 2 00 (two) Medical times Branch daily. metroNIDAZO 2019-0 Yes [id number] 500mg Take 1 Univers LE 500 mg 3-19 tablet by ity o f tablet 00:00: mouth [place] 00 every 8 Medical (eight) Branch hours. amoxicillin 2019-0 Yes [id number] 1000mg Take 2 [facility] 500 mg 3-19 capsules ity of capsule 00:00: by mouth 2 [place] 00 (two) Medical times Branch daily. tamsulosin 2019-0 Yes [id number] .4mg Take 1 Univers 0.4 mg 24 3-19 capsule by ity of hr capsule 00:00: mouth [place] 00 daily. Medical Branch metroNIDAZO 2019-0 Yes [id number] 500mg Take 1 Univers LE 500 mg 3-19 tablet by ity o f tablet 00:00: mouth [place] 00 every 8 Medical (eight) Branch hours. omeprazole 2019-0 Yes [id number] 20mg Take 1 Univers 20 mg 3-19 capsule by ity of capsule 00:00: mouth 00 (two) Medical times Branch daily. amoxicillin 2019-0 Yes [id number] 1000mg Take 2 [facility] 500 mg 3-19 capsules ity of capsule 00:00: by mouth 2 [place] 00 (two) Medical times Branch daily. metroNIDAZO 2019-0 Yes [id number] 500mg Take 1 Univers LE 500 mg 3-19 tablet by ity o f tablet 00:00: mouth [place] 00 every 8 Medical (eight) Branch hours. amoxicillin 2019-0 Yes [id number] 1000mg Take 2 Univers 500 mg 3-19 capsules ity of capsule 00:00: by mouth 2 [place] 00 (two) Medical times Branch daily. tamsulosin 2019-0 Yes [id number] .4mg Take 1 Univers 0.4 mg 24 3-19 capsule by ity of hr capsule 00:00: mouth [place] 00 daily. Medical Branch tamsulosin 2019-0 Yes [id number] .4mg Take 1 Univers 0.4 mg 24 3-19 capsule by ity of hr capsule 00:00: mouth [place] 00 daily. Medical Branch omeprazole 2019-0 Yes [id number] 20mg Take 1 Univers 20 mg 3-19 capsule by ity of capsule 00:00: mouth 2 [place] 00 (two) Medical times Branch daily. metroNIDAZO 2019-0 Yes [id number] 500mg Take 1 Univers LE 500 mg 3-19 tablet by ity o f tablet 00:00: mouth [place] 00 every 8 Medical (eight) Branch hours. amoxicillin 2019-0 Yes [id number] 1000mg Take 2 [facility] 500 mg 3-19 capsules ity of capsule 00:00: by mouth 2 [place] 00 (two) Medical times Branch daily. tamsulosin 2019-0 Yes [id number] .4mg Take 1 Univers 0.4 mg 24 3-19 capsule by ity of hr capsule 00:00: mouth [place] 00 daily. Medical Branch omeprazole 2019-0 Yes [id number] 20mg Take 1 Univers 20 mg 3-19 capsule by ity of capsule 00:00: mouth 2 00 (two) Medical times Branch daily. metroNIDAZO 2019-0 Yes [id number] 500mg Take 1 Univers LE 500 mg 3-19 tablet by ity o f tablet 00:00: mouth [place] 00 every 8 Medical (eight) Branch hours. amoxicillin 2019-0 Yes [id number] 1000mg Take 2 [facility] 500 mg 3-19 capsules ity of capsule 00:00: by mouth 2 [place] (two) Medical times Branch daily. tamsulosin 2019-0 Yes [id number] .4mg Take 1 Univers 0.4 mg 24 3-19 capsule by ity of hr capsule 00:00: mouth [place] 00 daily. Medical Branch omeprazole 2019-0 Yes [id number] 20mg Take 1 [facility] 20 mg 3-19 capsule by ity of capsule 00:00: mouth 2 [place] 00 (two) Medical times Branch daily. metroNIDAZO 2019-0 Yes [id number] 500mg Take 1 Univers LE 500 mg 3-19 tablet by ity o f tablet 00:00: mouth [place] 00 every 8 Medical (eight) Branch hours. amoxicillin 2019-0 Yes [id number] 1000mg Take 2 [facility] 500 mg 3-19 capsules ity of capsule 00:00: by mouth 2 [place] 00 (two) Medical times Branch daily. tamsulosin 2019-0 Yes [id number] .4mg Take 1 Univers 0.4 mg 24 3-19 capsule by ity of hr capsule 00:00: mouth [place] 00 daily. Medical Branch omeprazole 2019-0 Yes [id number] 20mg Take 1 [facility] 20 mg 3-19 capsule by ity of capsule 00:00: mouth 2 [place] 00 (two) Medical times Branch daily. metroNIDAZO 2019-0 Yes [id number] 500mg Take 1 Univers LE 500 mg 3-19 tablet by ity o f tablet 00:00: mouth [place] 00 every 8 Medical (eight) Branch hours. amoxicillin 2019-0 Yes [id number] 1000mg Take 2 [facility] 500 mg 3-19 capsules ity of capsule 00:00: by mouth 2 [place] 00 (two) Medical times Branch daily. tamsulosin 2019-0 Yes [id number] .4mg Take 1 Univers 0.4 mg 24 3-19 capsule by ity of hr capsule 00:00: mouth [place] 00 daily. Medical Branch omeprazole 2019-0 Yes [id number] 20mg Take 1 [facility] 20 mg 3-19 capsule by ity of capsule 00:00: mouth 2 [place] 00 (two) Medical times Branch daily. metroNIDAZO 2019-0 Yes [id number] 500mg Take 1 Univers LE 500 mg 3-19 tablet by ity o f tablet 00:00: mouth [place] 00 every 8 Medical (eight) Branch hours. amoxicillin 2019-0 Yes [id number] 1000mg Take 2 Univers 500 mg 3-19 capsules [facility] [place] capsule 00:00[place] ([place] [facility] daily. tamsulosin 2019-0 Yes [id number] .4mg Take 1 Univers 0.4 mg 24 3-19 capsule by ity of hr capsule 00:00: mouth [place] 00 daily. Medical Branch omeprazole 2019-0 Yes [id number] 20mg Take 1 Univers 20 mg 3-19 capsule by ity of capsule 00:00: mouth 2 [place] 00 (two) Medical times Branch daily. metroNIDAZO 2019-0 Yes [id number] 500mg Take 1 Univers LE 500 mg 3-19 tablet by ity o f tablet 00:00: mouth [place] 00 every 8 Medical (eight) Branch hours. amoxicillin 2019-0 Yes [id number] 1000mg Take 2 [facility] 500 mg 3-19 capsules [facility] of capsule 00:00: [place] 2 [place] (two) Medical times Branch daily. tamsulosin Yes [id number] .4mg Take 1 Univers 0.4 mg 24 3-19 capsule by ity of hr capsule 00:00: mouth [place] 00 daily. Medical Branch enalapril Yes [id number] 10mg Take 1 U nivers 10 mg 2-27 tablet by ity of tablet 00:00: mouth [place] 00 daily. Medical Branch esomeprazol Yes [id number] 20mg Take 20 mg Univers e (NEXIUM) 2-27 by mouth ity o f 20 mg 00:00: daily [place] capsule 00 before a Medical meal. Branch enalapril Yes [id number] 10mg Take 1 U nivers 10 mg 2-27 tablet by ity of tablet 00:00: mouth [place] 00 daily. Medical Branch enalapril Yes [id number] 10mg Take 1 U nivers 10 mg 2-27 tablet by ity of tablet 00:00: mouth [place] 00 daily. Medical Branch esomeprazol Yes [id number] 20mg Take 20 mg Univers e (NEXIUM) 2-27 by mouth ity o f 20 mg 00:00: daily [place] capsule 00 before a Medical meal. Branch esomeprazol Yes [id number] 20mg Take 20 mg Univers e (NEXIUM) 2-27 by mouth ity o f 20 mg 00:00: daily [place] capsule 00 before a Medical meal. Branch enalapril Yes [id number] 10mg Take 1 U nivers 10 mg 2-27 tablet by ity of tablet 00:00: mouth [place] 00 daily. Medical Branch esomeprazol Yes [id number] 20mg Take 20 mg Univers e (NEXIUM) 2-27 by mouth ity o f 20 mg 00:00: daily [place] capsule 00 before a Medical meal. Branch enalapril Yes [id number] 10mg Take 1 U nivers 10 mg 2-27 tablet by ity of tablet 00:00: mouth [place] 00 daily. Medical Branch esomeprazol Yes [id number] 20mg Take 20 mg Univers e (NEXIUM) 2-27 by mouth ity o f 20 mg 00:00: daily [place] capsule 00 before a Medical meal. Branch enalapril Yes [id number] 10mg Take 1 U nivers 10 mg 2-27 tablet by ity of tablet 00:00: mouth [place] 00 daily. [facility] Branch esomeprazol Yes [id number] 20mg Take 20 mg Univers e (NEXIUM) 2-27 by mouth ity o f 20 mg 00:00: daily [place] capsule 00 before a Medical meal. Branch enalapril Yes [id number] 10mg Take 1 U nivers 10 mg 2-27 tablet by ity of tablet 00:00: mouth [place] 00 daily. [facility] Branch esomeprazol Yes [id number] 20mg Take 20 mg Univers e (NEXIUM) 2-27 by mouth ity o f 20 mg 00:00: daily [place] capsule 00 before a Medical meal. Branch enalapril Yes [id number] 10mg Take 1 U nivers 10 mg 2-27 tablet by ity of tablet 00:00: mouth [place] 00 daily. [facility] esomeprazol Yes [id number] 20mg Take 20 mg Univers e (NEXIUM) 2-27 by mouth ity o f 20 mg 00:00: daily [place] capsule 00 before a Medical meal. Branch enalapril Yes [id number] 10mg Take 1 U nivers 10 mg 2-27 tablet by ity of tablet 00:00: mouth [place] 00 daily. [facility] esomeprazol Yes [id number] 20mg Take 20 mg Univers e (NEXIUM) 2-27 by mouth ity o f 20 mg 00:00: daily [place] capsule 00 before a Medical meal. Branch enalapril Yes [id number] 10mg Take 1 U nivers 10 mg 2-27 tablet by ity of tablet 00:00: mouth [place] 00 daily. [facility] esomeprazol Yes [id number] 20mg Take 20 mg Univers e (NEXIUM) 2-27 by mouth ity o f 20 mg 00:00: daily [place] capsule 00 before a Medical meal. Branch enalapril Yes [id number] 10mg Take 1 U nivers 10 mg 2-27 tablet by ity of tablet 00:00: mouth [place] 00 daily. [facility] esomeprazol Yes [id number] 20mg Take 20 mg Univers e (NEXIUM) 2-27 by mouth ity o f 20 mg 00:00: daily [place] capsule 00 before a Medical meal. Sophia enalapril Yes [id number] 10mg Take 1 U nivers 10 mg 2-27 tablet by ity of tablet 00:00: mouth [place] 00 daily. [facility] esomeprazol Yes [id number] 20mg Take 20 mg Univers e (NEXIUM) 2-27 by mouth ity o f 20 mg 00:00: daily [place] capsule 00 before a Medical meal. Branch enalapril Yes [id number] 10mg Take 1 U nivers 10 mg 2-27 tablet by ity of tablet 00:00: mouth [place] 00 daily. [facility] esomeprazol Yes [id number] 20mg Take 20 mg Univers e (NEXIUM) 2-27 by mouth ity o f 20 mg 00:00: daily [place] capsule 00 before a Medical meal. Sophia enalapril Yes [id number] 10mg Take 1 U nivers 10 mg 2-27 tablet by ity of tablet 00:00: mouth [place] 00 daily. [facility] esomeprazol Yes [id number] 20mg Take 20 mg Univers e (NEXIUM) 2-27 by mouth ity o f 20 mg 00:00: daily [place] capsule 00 before a Medical meal. Sophia enalapril Yes [id number] 10mg Take 1 U nivers 10 mg 2-27 tablet by ity of tablet 00:00: mouth [place] 00 daily. [facility] esomeprazol Yes [id number] 20mg Take 20 mg Univers e (NEXIUM) 2-27 by mouth ity o f 20 mg 00:00: daily [place] capsule 00 before a Medical meal. Branch enalapril Yes [id number] 10mg Take 1 U nivers 10 mg 2-27 tablet by ity of tablet 00:00: mouth [place] 00 daily. [facility] esomeprazol Yes [id number] 20mg Take 20 mg Univers e (NEXIUM) 2-27 by mouth ity o f 20 mg 00:00: daily [place] capsule 00 before a Medical meal. Sophia enalapril Yes [id number] 10mg Take 1 U nivers 10 mg 2-27 tablet by ity of tablet 00:00: mouth [place] 00 daily. Medical Branch esomeprazol 2018-0 Yes [id number] 20mg Take 20 mg Univers e (NEXIUM) 2-27 by mouth ity o f 20 mg 00:00: daily [place] capsule 00 before a Medical meal. Branch enalapril 2018-0 Yes [id number] 10mg Take 1 U nivers 10 mg 2-27 tablet by ity of tablet 00:00: mouth [place] 00 daily. Medical Branch esomeprazol 0 Yes [id number] 20mg Take 20 mg Univers e (NEXIUM) 2-27 by mouth ity o f 20 mg 00:00: daily [place] capsule 00 before a Medical meal. Branch dicyclomine Yes [id number] 20mg Take 1 Univers (BENTYL) 20 2-26 tablet by ity of mg tablet 00:00: mouth (four) Medical times Branch daily. ondansetron 2018- Yes [id number] 8mg Take 1 Univers (ZOFRAN) 8 2-26 tablet by ity of mg tablet 00:00: mouth [place] 00 every 8 Medical (eight) Branch hours as needed for Nausea and Vomiting (N/V). dicyclomine 2018-0 Yes [id number] 20mg Take 1 Univers (BENTYL) 20 2-26 tablet by ity of mg tablet 00:00: mouth (four) Medical times Branch daily. ondansetron 2018-0 Yes [id number] 8mg Take 1 Univers (ZOFRAN) 8 2-26 tablet by ity of mg tablet 00:00: mouth [place] 00 every 8 Medical (eight) Branch hours as needed for Nausea and Vomiting (N/V). dicyclomine 2018-0 Yes [id number] 20mg Take 1 Univers (BENTYL) 20 2-26 tablet by ity of mg tablet 00:00: mouth 4 (four) Medical times Branch daily. ondansetron 2018-0 Yes [id number] 8mg Take 1 Univers (ZOFRAN) 8 2-26 tablet by ity of mg tablet 00:00: mouth [place] 00 every 8 Medical (eight) Branch hours as needed for Nausea and Vomiting (N/V). dicyclomine 2018- Yes [id number] 20mg Take 1 Univers (BENTYL) 20 2-26 tablet by ity of mg tablet 00:00: mouth (four) Medical times Branch daily. ondansetron 2019-0 Yes [id number] 8mg Take 1 Univers (ZOFRAN) 8 2-26 tablet by ity of mg tablet 00:00: mouth [place] 00 every 8 Medical (eight) Branch hours as needed for Nausea and Vomiting (N/V). dicyclomine 2019-0 Yes [id number] 20mg Take 1 Univers (BENTYL) 20 2-26 tablet by ity of mg tablet 00:00: mouth 4 00 (four) Medical times Branch daily. ondansetron 2019-0 Yes [id number] 8mg Take 1 Univers (ZOFRAN) 8 2-26 tablet by ity of mg tablet 00:00: mouth [place] 00 every 8 Medical (eight) Branch hours as needed for Nausea and Vomiting (N/V). dicyclomine 2019-0 Yes [id number] 20mg Take 1 Univers (BENTYL) 20 2-26 tablet by ity of mg tablet 00:00: mouth (four) Medical times Branch daily. ondansetron 2019-0 Yes [id number] 8mg Take 1 Univers (ZOFRAN) 8 2-26 tablet by ity of mg tablet 00:00: mouth [place] 00 every 8 Medical (eight) Branch hours as needed for Nausea and Vomiting (N/V). dicyclomine 2019-0 Yes [id number] 20mg Take 1 Univers (BENTYL) 20 2-26 tablet by ity of mg tablet 00:00: mouth (four) Medical times Branch daily. ondansetron 2019-0 Yes [id number] 8mg Take 1 Univers (ZOFRAN) 8 2-26 tablet by ity of mg tablet 00:00: mouth [place] 00 every 8 Medical (eight) Branch hours as needed for Nausea and Vomiting (N/V). dicyclomine 2019-0 Yes [id number] 20mg Take 1 Univers (BENTYL) 20 2-26 tablet by ity of mg tablet 00:00: mouth 4 00 (four) Medical times Branch daily. ondansetron 2019-0 Yes [id number] 8mg Take 1 Univers (ZOFRAN) 8 2-26 tablet by ity of mg tablet 00:00: mouth [place] 00 every 8 Medical (eight) Branch hours as needed for Nausea and Vomiting (N/V). ondansetron 2019-0 Yes [id number] 8mg Take 1 Univers (ZOFRAN) 8 2-26 tablet by ity of mg tablet 00:00: mouth [place] 00 every 8 Medical (eight) Branch hours as needed for Nausea and Vomiting (N/V). dicyclomine 2019-0 Yes [id number] 20mg Take 1 Univers (BENTYL) 20 2-26 tablet by ity of mg tablet 00:00: mouth 4 [place] 00 (four) Medical times Branch daily. dicyclomine 2019-0 Yes [id number] 20mg Take 1 Univers (BENTYL) 20 2-26 tablet by ity of mg tablet 00:00: mouth 4 [place] 00 (four) Medical times Branch daily. ondansetron 2019-0 Yes [id number] 8mg Take 1 Univers (ZOFRAN) 8 2-26 tablet by ity of mg tablet 00:00: mouth [place] 00 every 8 Medical (eight) Branch hours as needed for Nausea and Vomiting (N/V). dicyclomine 2019-0 Yes [id number] 20mg Take 1 Univers (BENTYL) 20 2-26 tablet by ity of mg tablet 00:00: mouth (four) Medical times Branch daily. ondansetron 2019-0 Yes [id number] 8mg Take 1 Univers (ZOFRAN) 8 2-26 tablet by ity of mg tablet 00:00: mouth [place] 00 every 8 Medical (eight) Branch hours as needed for Nausea and Vomiting (N/V). dicyclomine 2019-0 Yes [id number] 20mg Take 1 Univers (BENTYL) 20 2-26 tablet by ity of mg tablet 00:00: mouth 4 00 (four) Medical times Branch daily. ondansetron 2019-0 Yes [id number] 8mg Take 1 Univers (ZOFRAN) 8 2-26 tablet by ity of mg tablet 00:00: mouth [place] 00 every 8 Medical (eight) Branch hours as needed for Nausea and Vomiting (N/V). dicyclomine 2019-0 Yes [id number] 20mg Take 1 Univers (BENTYL) 20 2-26 tablet by ity of mg tablet 00:00: mouth (four) Medical times Branch daily. ondansetron 2019-0 Yes [id number] 8mg Take 1 Univers (ZOFRAN) 8 2-26 tablet by ity of mg tablet 00:00: mouth [place] 00 every 8 Medical (eight) Branch hours as needed for Nausea and Vomiting (N/V). dicyclomine 2019-0 Yes [id number] 20mg Take 1 Univers (BENTYL) 20 2-26 tablet by ity of mg tablet 00:00: mouth (four) Medical times Branch daily. ondansetron 2019-0 Yes [id number] 8mg Take 1 Univers (ZOFRAN) 8 2-26 tablet by ity of mg tablet 00:00: mouth [place] 00 every 8 Medical (eight) Branch hours as needed for Nausea and Vomiting (N/V). dicyclomine 2019-0 Yes [id number] 20mg Take 1 Univers (BENTYL) 20 2-26 tablet by ity of mg tablet 00:00: mouth (four) Medical times Branch daily. ondansetron 2019-0 Yes [id number] 8mg Take 1 Univers (ZOFRAN) 8 2-26 tablet by ity of mg tablet 00:00: mouth [place] 00 every 8 Medical (eight) Branch hours as needed for Nausea and Vomiting (N/V). dicyclomine 2019-0 Yes [id number] 20mg Take 1 Univers (BENTYL) 20 2-26 tablet by ity of mg tablet 00:00: mouth (four) Medical times Branch daily. ondansetron 2019-0 Yes [id number] 8mg Take 1 Univers (ZOFRAN) 8 2-26 tablet by ity of mg tablet 00:00: mouth [place] 00 every 8 Medical (eight) Branch hours as needed for Nausea and Vomiting (N/V). dicyclomine 2019-0 Yes [id number] 20mg Take 1 Univers (BENTYL) 20 2-26 tablet by ity of mg tablet 00:00: mouth 4 (four) Medical times Branch daily. ondansetron 2019-0 Yes [id number] 8mg Take 1 Univers (ZOFRAN) 8 2-26 tablet by ity of mg tablet 00:00: mouth [place] 00 every 8 Medical (eight) Branch hours as needed for Nausea and Vomiting (N/V). dicyclomine 2018- Yes [id number] 20mg Take 1 Univers (BENTYL) 20 2-26 tablet by ity of mg tablet 00:00: mouth 4 00 (four) Medical times Branch daily. ondansetron Yes [id number] 8mg Take 1 Univers (ZOFRAN) 8 2-26 tablet by ity of mg tablet 00:00: mouth [place] 00 every 8 Medical (eight) Branch hours as needed for Nausea and Vomiting (N/V). Celexa Celexa Yes Kirill 1 tablet [facility] Omeprazole Omeprazole Yes Kirill 1 capsule Common [facility] Vital Signs Vital Name Observation Time Observation Value Comments Source Systolic blood 2019-10-27 21:19:00 130 mm[Hg] Univer sity of [facility] Diastolic blood 2019-10-27 21:19:00 82 mm[facility]Hg[facility] Heart rate 2019-10-27 21:19:00 72 /min Universi ty [facility] Body temperature 2019-10-27 21:19:00 35.94 [facility] Res[facility] 2019-10-27 21:19:00 18 /min [facility] Body weight 2019-10-27 21:19:00 66.588 kg Universi ty [facility] BMI 2019-10-27 21:19:00 26.85 kg/m2 Universi ty [facility] Systolic blood 2019-10-27 21:19:00 130 mm[Hg] Univer sity [facility] Diastolic blood 2019-10-27 21:19:00 82 mm[Hg] Unive rsity [facility] Heart rate 2019-10-27 21:19:00 72 /min Universi ty [facility] Body temperature 2019-10-27 21:19:00 35.94 [facility] Respiratory rate 2019-10-27 21:19:00 18 /min [facility] Body weight 2019-10-27 21:19:00 66.588 kg Universi ty [facility] BMI 2019-10-27 21:19:00 26.85 kg/m2 Universi ty [...] 2019-10-23 20:39:00 66.225 kg Universi ty [facility] [place] [facility] BMI 2019-10-23 20:39:00 26.70 kg/m2 [facility]i [facility] [place] [facility] Oxygen saturation in 2019-10-23 20:39:00 99 /min University of Arterial blood by [facility] Pulse oximetry Branch Systolic blood 2019-10-21 22:34:39 137 mm[Hg] Univer sity of pressure [place] [facility] Diastolic blood 2019-10-21 22:34:39 89 mm[Hg] Unive rsity of pressure [place] [facility] Heart rate 2019-10-21 22:34:39 76 /min Universi ty [facility] [place] [facility] Respiratory rate 2019-10-21 22:34:39 16 /min Univ ers[facility] [place] [facility] Oxygen saturation in 2019-10-21 22:34:39 100 /min University of Arterial blood by [facility] Pulse oximetry Branch Body temperature 2019-10-21 18:19:00 36.11 Tara Univ ersity of [place] [facility] Body weight 2019-10-21 18:19:00 63.504 kg Universi ty [facility] [place] [facility] BMI 2019-10-21 18:19:00 25.61 kg/m2 [facility]i ty [facility] [place] [facility] Systolic blood 2019-10-21 16:27:30 161 mm[Hg] Univer sity of pressure [place] [facility] Diastolic blood 2019-10-21 16:27:30 94 mm[Hg] Unive rsity of pressure [place] [facility] Heart rate 2019-10-21 16:27:30 57 /min Universi ty [facility] [place] [facility] Respiratory rate 2019-10-21 16:27:30 15 /min Univ ersity [facility] [place] [facility] Oxygen saturation in 2019-10-21 16:27:30 99 /min University of Arterial blood by [facility] Pulse oximetry Branch Body temperature 2019-10-21 14:06:00 36.78 [facility] Body height 2019-10-21 14:06:00 157.5 cm [facility] Body weight 2019-10-21 14:06:00 63.504 kg [facility] BMI 2019-10-21 14:06:00 25.61 kg/m2 [facility] Procedures Procedure Date / Time Performing Clinician Source Performed AGREEMENTS AUTHORIZATIONS 2019-10-26 06:01:00 Doctor Aundrea, [facility] AND IRREVOCABLE [facility] ASSIGNMENTS (FORM 2001) NO SHOW OR MISSED 2019-10-23 20:13:48 Doctor Aundrea, [facility] APPOINTMENT POLICY [facility] h ACKNOWLEDGEMENT CT ABDOMEN PELVIS W 2019-10-21 15:18:00 Kvng Ortega [facility] CONTRAST [facility] PROTHROMBIN TIME / INR 2019-10-21 14:43:00 Kvng Ortega [facility] ACTIVATED PARTIAL THRMPLAS 2019-10-21 14:43:00 Kvng Ortega [facility] SABINA [facility] EKG-12 LEAD 2019-10-21 14:32:07 Kvng Ortega [facility] LIPASE 2019-10-21 14:21:00 Kvng Ortega [facility] TROPONIN I 2019-10-21 14:21:00 Kvng Ortega [facility] COMP. METABOLIC PANEL 2019-10-21 14:21:00 Kvng Ortega [facility] ([id number]) [facility] CBC WITH DIFFERENTIAL 2019-10-21 14:21:00 Kvng Ortega [facility] URINALYSIS 2019-10-21 14:21:00 Kvng Ortega [facility] N-TERMINAL PRO-BNP 2019-10-21 14:21:00 Kvng Ortega [facility] NOTICE OF PRIVACY 2019-10-21 13:51:39 Doctor Aundrea, [facility] PRACTICES [facility]ia CONSENT/REFUSAL FOR 2019-10-21 13:51:24 Doctor Aundrea [facility] DIAGNOSIS AND TREATMENT [facility] Encounters Start End Encounter Admission Attending Care Care Encounter Source Date/Time Date/Time Type Type Clinicians Facility Department ID 2021-10-12 Outpatient Liriano, STLMLC STLMLC [id number] Common 15:41:00 Kirill [facility] 2021-10-04 Outpatient Liriano, STLMLC STLMLC [id number] Common 13:33:12 Kirill [facility] 2021-10-04 Outpatient Liriano, STLMLC STLMLC [id number] Common 13:00:47 Kirill [facility] 2021-10-04 Outpatient Liriano, STLMLC STLMLC [id number] Common 12:47:56 Kirill [id number] [facility] 2021-10-04 Outpatient Liriano, STLMLC STLMLC [id number] Common 12:43:55 Kirill [id number] [facility] 2021-10-04 Outpatient Liriano, STLMLC STLMLC [id number] Common 12:41:52 Kirill [id number] [facility] 2021-10-04 Outpatient Liriano, STLMLC STLC [id number] Common 12:29:54 Kirill [id number] [facility] 2021-10-04 Outpatient Liriano, STLMLC STLC [id number] Common 12:25:09 Kirill 28041 [facility] 2021-10-04 Outpatient Liriano, STLMLC STLMLC [id number] Common 12:22:08 Kirill [id number] [facility] 2021-10-04 Outpatient Liriano, STLMLC STLMLC [id number] Common 12:21:24 Kirill 77569 [facility] 2021-10-04 Outpatient Liriano, STLMLC STLMLC [id number] Common 12:14:23 Kirill [id number] [facility] 2021-10-04 Outpatient Liriano, STLMLC STLMLC [id number] Common 11:29:30 Kirill [id number] [facility] 2021-10-04 Outpatient Liriano, STLMLC STLMLC [id number] Common 11:18:08 Kirill [id number] [facility] 2021-10-04 Outpatient Liriano, STLMLC STLMLC [id number] Common 11:09:25 Kirill 86819 [facility] 2021-10-04 Outpatient Liriano, STLMLC STLMLC [id number] Common 11:02:57 Kirill 64525 [facility] 2022-05-03 2022-05-03 ambulatory STLMLC STLMLC [id number] Common 00:00:00 00:00:00 [facility] 2022-05-02 2022-05-02 ambulatory STLMLC STLMLC [id number] Common 00:00:00 00:00:00 [facility] 2022-04-16 2022-04-16 ambulatory STLMLC STLMLC [id number] Common 00:00:00 00:00:00 [facility] 2022-04-05 2022-04-05 ambulatory STLMLC STLMLC [id number] Common 00:00:00 00:00:00 [facility] 2022-04-05 2022-04-05 ambulatory STLMLC STLMLC [id number] Common 00:00:00 00:00:00 [facility] 2022-03-30 2022-03-30 ambulatory STLMLC STLMLC [id number] Common 00:00:00 00:00:00 [facility] 2022-03-26 2022-03-26 Outpatient R [facility] [id number] Univers 11:15:00 11:15:00 [id number] [facility] 2022-03-26 2022-03-26 Outpatient R JUAN [facility] [id number] Univers 11:15:00 11:15:00 SADIA [facility] 2022-03-26 2022-03-26 Laboratory Only, Ang Db Test [facility] 1.2.8 40.114 [id number] Univers 11:15:00 11:15:00 Only Juan [facility] [id number] [facility] 4.2.7.2.686 Willi as RAMYA?BLEA [id number] [facility] [address] Soph[address] MEDICAL OFFICE BUILDING 2021-12-25 2021-12-25 ambulatory STLMLC STLMLC [id number] Common 00:00:00 00:00:00 [facility] 2021-11-13 2021-11-13 ambulatory STLMLC STLMLC [id number] Common 00:00:00 00:00:00 [facility] 2021-10-16 2021-10-16 ambulatory STLMLC STLMLC [id number] Common 00:00:00 00:00:00 [facility] 2021-10-16 2021-10-16 ambulatory STLMLC STLMLC [id number] Common 00:00:00 00:00:00 [facility] 2021-09-18 2021-09-18 ambulatory STLMLC STLMLC [id number] Common 00:00:00 00:00:00 [facility] 2021-09-06 2021-09-06 Letter Nurse, Cong [facility] [id number] Univers 00:00:00 00:00:00 (Out) Urgent Care HEALTH 350.1.13.10 ity of SURGICAL 4.2.7.2.686 Willi as SPECIALTI [id number] [address] 2021-09-06 2021-09-06 Telephone Ryan [facility] [id number] Univers 00:00:00 00:00:00 Attending HEALTH [id number] ity [facility] 4.2.7.2.686 Willi as RAMYA?BLEA [id number] [address] MEDICAL OFFICE [facility] 2021-09-05 2021-09-05 Telephone KIKA [place] [id number] Univers 00:00:00 00:00:00 Cristina NOBLES 350.1.13.10 ity of [facility] 4.2.7.2.686 Willi as [id number] [address] 2021-09-04 2021-09-04 Outpatient Tyson MARTINEZ [facility] [id number] Univers 15:00:00 16:17:24 SADIA ity [facility] 2021-09-04 2021-09-04 Laboratory Only, Ang Db Test [facility] 1.2.8 40.114 [id number] Univers 15:00:00 15:15:00 Only Sadia Martinez HEALTH [id number] ity of [place] 4.2.7.2.686 Willi as RAMYA?BLEA [id number] [address] MEDICAL OFFICE BUILDING 2021-09-04 2021-09-04 Outpatient R [facility] [id number] Univers 15:00:00 15:00:00 [id number] ity [facility] 2021-09-04 2021-09-04 Letter Provider, [facility] [id number] Univers 00:00:00 00:00:00 (Out) Ang Db HEALTH 350.1.13.10 it y of Urgent Care [place] 4.2.7.2.686 [place] RAMYA?BLEA [id number] [address] MEDICAL OFFICE [facility] 2021-06-20 2021-06-20 Outpatient STLMLC STLMLC [id number] Common 00:00:00 00:00:00 [facility] 2021-05-31 2021-05-31 Outpatient STLMLC STLMLC [id number] Common 00:00:00 00:00:00 [facility] 2021-04-10 2021-04-10 Outpatient STLMLC STLMLC [id number] Common 00:00:00 00:00:00 [facility] 2021-02-15 2021-02-15 Outpatient STLMLC STLMLC [id number] Common 00:00:00 00:00:00 [facility] 2021-02-08 2021-02-08 Outpatient STLMLC STLMLC [id number] Common 00:00:00 00:00:00 [facility] 2021-02-08 2021-02-08 Outpatient STLMLC STLMLC [id number] Common 00:00:00 00:00:00 [facility] 2021-01-12 2021-01-12 Outpatient STLMLC STLMLC [id number] Common 00:00:00 00:00:00 [facility] 2020-12-13 2020-12-13 Outpatient STLMLC STLMLC [id number] Common 00:00:00 00:00:00 [facility] 2020-12-07 2020-12-07 Outpatient STLMLC STLMLC [id number] Common 00:00:00 00:00:00 [facility] 2020-12-01 2020-12-01 Outpatient STLMLC STLMLC [id number] Common 00:00:00 00:00:00 [facility] 2020-11-29 2020-11-29 Outpatient STLMLC STLMLC [id number] Common 00:00:00 00:00:00 [facility] 2020-11-24 2020-11-24 Outpatient STLMLC STLMLC [id number] Common 00:00:00 00:00:00 [facility] 2020-09-27 2020-09-27 Outpatient STLMLC STLMLC [id number] Common 00:00:00 00:00:00 [facility] 2020-09-26 2020-09-26 Outpatient STLMLC STLMLC [id number] Common 00:00:00 00:00:00 [facility] 2020-09-22 2020-09-22 Outpatient STLMLC STLMLC [id number] Common 00:00:00 00:00:00 [facility] 2020-09-22 2020-09-22 Outpatient STLMLC STLMLC [id number] Common 00:00:00 00:00:00 [facility] 2020-08-29 2020-08-29 Outpatient STLMLC STLMLC [id number] Common 00:00:00 00:00:00 [facility] 2020-08-26 2020-08-26 Outpatient STLMLC STLMLC [id number] Common 00:00:00 00:00:00 [facility] 2020-08-24 2020-08-24 Outpatient STLMLC STLMLC [id number] Common 00:00:00 00:00:00 [facility] 2020-05-18 2020-05-18 [facility] [id number] Common 13:10:00 13:10:[address] [address] [facility] 2020-05-18 2020-05-18 [facility] [id number] Common 13:00:00 13:00:00 [address] [place] [address] [facility] 2020-03-15 2020-03-15 [facility] [id number] Common 13:00:00 13:00:00 [address] [place] [address] [facility] 2020-03-10 2020-03-10 [facility] [id number] Common 09:29:00 09:29:[address] [address] [facility] 2019-10-27 2019-11-04 Office [facility] [id number] Univers 14:59:06 16:07:07 Visit Pat Schroeder [id number] i [place] [phone] Al dical nal [address] [place] [address] 2019-10-27 2019-11-04 Office [facility] [id number] 14:59:06 16:07:07 Visit Pat Schroeder [id number] [place] 4.2.7.2.686 Professio [phone] [address] 2019-10-27 2019-10-27 [facility] [id number] Univers 15:15:00 16:12:43 PAT fierro [facility] 2019-10-27 2019-10-27 [facility] [id number] [facility] 00:00:00 00:00:00 Xena Schroeder [id number] i [place] [phone] Al dical nal [address] [place] [address] 2019-10-26 2019-10-26 Ironer Or Presser 2, Adc Lab [facility] [id number] Univers 08:30:53 08:45:53 Visit Estephania Low 350.1. 13.10 it[place] [phone] Al dical nal 353 [facility] 2019-10-26 2019-10-26 Orders Doctor KIKA [id number] Univers 00:00:00 00:00:00 Only Unassigned, MALLORIE [id number] ity of [facility] 4.2.7.2.686 Willi as [phone] [facility] 009 Sophia 2019-10-23 2019-10-23 Office [facility] [id number] Univers 14:21:19 16:12:39 Visit Xena Schroeder 350.1.13.10 i [place] [phone] Al dical nal 044 [facility] 2019-10-23 2019-10-23 Outpatient R [facility] [id number] Univers 14:20:00 16:12:39 XENA fierro of [facility] 2019-10-23 2019-10-23 Orders Doctor KIKA 1.2.840.114 [id number] Univers 00:00:00 00:00:00 Only Unassigned, MALLORIE [id number] ity of [facility] 4.2.7.2.686 Willi as [phone] [facility] 009 Sophia 2019-10-21 2019-10-21 Emergency Unknown, Attending TRAUMA [id number] Univers 12:21:18 16:35:00 [facility] [id number] [place] [phone] [facility] 014 Sophia 2019-10-21 2019-10-21 Emergency [facility] [id number] Univers 08:08:55 11:21:00 Kvng Schroeder 350.1.13.10 i ty of [place] 4.2.7.2.686 [facility] [phone] [facility] [address] 2019-10-21 2019-10-21 Emergency X ORTEGA, [facility] ERT [id number] Univers 08:08:55 11:21:00 KVNG ity of [facility] 2019-10-21 2019-10-21 Orders Doctor KIKA [id number] Univers 00:00:00 00:00:00 Only Unassigned, MALLORIE 350.1.13.10 ity of [facility] 4.2.7.2.686 [facility] [phone] [facility] [address] 2019-10-02 2019-10-02 [facility] [id number] Common 08:45:00 08:45:[address] [address] [facility] 2019-08-21 2019-08-21 [facility] [id number] Common 15:52:00 15:52:[address] [place] [address] [facility] 2019-06-26 2019-06-26 [facility] [id number] Common 16:01:00 16:01:[address] [place] [address] [facility] 2019-06-26 2019-06-26 [facility] [id number] Common 09:30:00 09:30:[address] [place] [address] [facility] 2019-05-21 2019-05-21 [facility] [id number] Common 13:00:00 13:00:[address] [place] [address] [facility] 2019-02-23 2019-02-23 [facility] [id number] Common 08:30:00 08:30:[address] [place] [address] [facility] 2019-01-15 2019-01-15 [facility] [id number] Common 11:49:00 11:49:[address] [place] [address] [facility] 2019-01-07 2019-01-07 [facility] [id number] Common 11:00:00 11:00:00 [facility] it Drive [facility] Results Test Test Test Results Result Source [...] edge of the spleen, there is an brozsbzaf79 mm splenule. Mild generalized dilatation of the [...] in the right lobe of theliver, unchanged. [facility], Radiant Results Inft User - 10/21/2019 9:34 [...] edge of the spleen, there is an rfpcsdbeo24 mm splenule. Mild generalized dilatation of the [...] . HARI (test code = HARI) The [facility] patient population mean normal value for aPTT is 30 seconds. Lab Interpretation (test Normal code = 67065-4) [facility] (PT[facility] / [id number] 15:06:00 Test Item Value Reference Range Interpretation Comments PROTIME PATIENT (test See_Comment [Auto mated message] code = 5964-2) The system [employer] generated this result transmitted ref erence range: 12.0 - 1 4.7 Seconds. The re ference range was not u sed to interpret this result as normal/abnor mal. INR (test code = 6301-6) Nor mal INR <1.1; Warfarin Therap eutic range 2.0 to 3. 0 or 2.5 to 3.5, dep ending upon the indica tions. Lab Interpretation (test Normal code = 53638-4) [facility] [id number] 14:57:00 Test Item Value Reference Range Interpretation Comments TROPONIN I (test <0.012 See_Comment [Automated code = 7175465786) message] The system which generated this result [...] ? Lab Interpretation Normal (test code = 64097-1) [facility] [id number] 14:54:00 Test Item Value Reference Range Interpretation Comments NT-proBNP (test code 52 pg/mL See_Comment [Autom ated = 6085140552) message] The system which generated this result transmitted reference range : <=125. The reference range was not used to interpret this result as normal/abnormal . HARI (test code = HARI) Biotin has been reported to cause a negative bias, interpret results relative to patient's use of biotin. Lab Interpretation Normal (test code = 40899-1) [facility] Metabolic [id number] 14:45:00 Test Item Value Reference Range Interpretation Comments NA (test code = 141 mmol/L 135-145 6324672850) K (test code = 3.9 mmol/L 3.5-5 9910135644) CL (test code = 106 mmol/L 98-108 0249327547) CO2 TOTAL (test code = 28 mmol/L 23-31 9781310953) AGAP (test code = 2-16 3635960069) BUN (test code = 19 mg/dL 7-23 1472099145) GLUCOSE (test code = 98 mg/dL 70-110 8059512109) CREATININE (test code 0.83 mg/dL 0.6-1.25 = 6052447299) TOTAL BILI (test code 0.7 mg/dL 0.1-1.1 = 6149346487) CALCIUM (test code = 9.1 mg/dL 8.6-10.6 8945340927) T PROTEIN (test code = 6.9 g/dL 6.3-8.2 6304555854) ALBUMIN (test code = 4.3 g/dL 3.5-5 4020854403) ALK PHOS (test code = 67 U/L 34-122 4535373740) ALTv (test code = 21 U/L 5-50 1742-6) AST(SGOT) (test code = 26 U/L 13-40 9747356566) eGFR Calculation mL/min/1.73m2 (Non-) (test code = 1882793069) eGFR Calculation mL/min/1.73m2 () (test code = 5479802269) HARI (test code = HARI) Association of [...] or urine or abnormalities in imaging tests). [facility], [id number] 14:45:00 Test Item Value Reference Range Interpretation Comments LIPASE (test code = 0657155870) 491 U/L 0-220 H Lab Interpretation (test code = Abnormal 67969-7) [facility] CampusUrinalysis2020-02-12 14:37:00 Test Item Value Reference Range Interpretation Comments APPEARANCE (test code = Clear Clear 0341586278) COLOR (test code = Yellow Yellow 1757872869) PH (test code = 4.8-8.0 8070373228) SP GRAVITY (test code = 1.003-1.030 7120756322) GLU U QUAL (test code = Normal Normal 5794535355) BLOOD (test code = Negative Negative 1537975525) KETONES (test code = Negative Negative 8269098600) PROTEIN (test code = Negative Negative 2887-8) UROBILIN (test code = Normal Normal 4867551213) BILIRUBIN (test code = Negative Negative 8265399717) NITRITE (test code = Negative Negative 4039715793) LEUK RIMA (test code = Negative Negative 3793647922) RBC/HPF (test code = See_Comment [Autom ated message] 0646987143) The system [employer] generated this result transmitted ref erence range: 0 - 3 HP F. The reference range was not used to int erpret this result as normal/abnormal . WBC/HPF (test code = See_Comment [Autom ated message] 9622712960) The system [employer] generated this result transmitted ref erence range: 0 - 5 HP F. The reference range was not used to int erpret this result as normal/abnormal . BACTERIA (test code = Negative Negative 1780112480) MUCOUS (test code = Slight Negative LPF A 7125495163) Lab Interpretation (test Abnormal code = 63653-7) [facility] WITH [id number] 14:34:00 Test Item Value Reference Range Interpretation Comments WBC (test code = See_Comment [Automated message] 6690-2) The system [employer] generated this result transmitted ref erence range: 4.20 - 1 0.70 10*3/?L. The re ference range was not u sed to interpret this result as normal/abnor mal. RBC (test code = See_Comment [Automated message] 919-8) The system [employer] generated this result transmitted ref erence range: [...] RDW-SD (test code 42.3 fL 38.5-51.6 = 85238-1) RDW-CV (test code 12.9 % 12.1-15.4 = 788-0) PLT (test code = See_Comment [Automated message] 777-3) The system [employer] generated this result transmitted ref erence range: 150 - 32 8 10*3/?L. The re ference range was not u sed to interpret this result as normal/abnor mal. MPV (test code = 10.3 fL 9.8-13 14543-1) NRBC/100 WBC (test See_Comment [Automat ed message] code = 9562306352) The syste [employer] which generated this result transmitted ref erence range: 0.0 - 10 .0 /100 WBCs. The refer ence range was not u sed to interpret this result as normal/abnor mal. NRBC x10^3 (test <0.01 See_Comment [Automated message] code = 2461028268) The syste m which generated this result transmitted ref erence range: 10*3/?L. The reference range was not used to interpr et this result as normal/abnormal . GRAN MAT (NEUT) % 69.2 % (test code = 770-8) IMM GRAN % (test 0.30 % code = 1708501739) LYMPH % (test code 17.0 % = 736-9) MONO % (test code 7.1 % = 5905-5) EOS % (test code = 5.5 % 713-8) BASO % (test code 0.9 % = 706-2) GRAN MAT 4.87 10*3/uL 1.99-6.95 x10^3(ANC) (test code = 0990585830) IMM GRAN x10^3 <0.03 0-0.06 (test code = 7911883605) LYMPH x10^3 (test 1.20 10*3/uL 1.09-3.23 code = 731-0) MONO x10^3 (test 0.50 10*3/uL 0.36-1.02 code = 742-7) EOS x10^3 (test 0.39 10*3/uL 0.06-0.53 code = 711-2) BASO x10^3 (test 0.06 10*3/uL 0.01-0.09 code = 704-7) [facility]"
[2022-05-31 12:48] VITALS: BP 131/78; TEMP 97.5
[2022-05-31 13:09] VITALS: BMI 25.1
[2022-05-31] MEDS ORDERED: ONDANSETRON 4 MG/2 ML VIAL IV PRN (13:24)
[2022-05-31] MEDS ORDERED: ACETAMINOPHEN 500 MG TAB PO PRN (13:24)
--- NOTE | 2022-06-01 01:40 | P.SSS ---
Patient History Date of Service: 06/01/22 Reason for admission: Status post colonoscopy; concern for aspiration pneumoni a History of Present Illness: patient is a 66-year-old gentleman came to the hospital after colonoscopy. He was dressed and admitted to our hospital for concern for aspiration pneumonia. Patient was coughing quite a bit after his colonoscopy. He was refusing to put on oxygen. His O2 sats were in the high 80s. He was sent to hospital for direct admission. Allergies No Known Allergies Allergy (Verified 03/15/12 11:21) Home Medications: Calcium Carbonate [Tums] 200 mg PO PRN 03/15/12 Multivitamin [Daily Multivitamin] 1 each PO DAILY 03/15/12 - Past Medical/Surgical History Past Medical History: Patient denies medical history Past Surgical History: Patient denies surgical history - Family History Family History: Reviewed- Non-Contributory - Social History Smoking Status: Former smoker Alcohol use: No CD- Drugs: No Caffeine use: Yes Review of Systems 10-point ROS is otherwise unremarkable Physical Examination - Vital Signs Temperature: 97.5 F Blood Pressure: 131/78 Pulse: 68 Respirations: 18 Pulse Ox (%): 96 - Physical Exam General: Alert, In no apparent distress, Oriented x3 HEENT: Atraumatic, PERRLA, Mucous membr. moist/pink, EOMI, Sclerae nonicteric Neck: Supple, 2+ carotid pulse no bruit, No LAD, Without JVD or thyroid abnormality Respiratory: Clear to auscultation bilaterally, Normal air movement Cardiovascular: Regular rate/rhythm, Normal S1 S2 Gastrointestinal: Normal bowel sounds, No tenderness Musculoskeletal: No tenderness Integumentary: No rashes Neurological: Normal gait, Normal speech, Normal strength at 5/5 x4 extr, Normal tone, Normal affect Lymphatics: No axilla or inguinal lymphadenopathy - Studies Laboratory Data (last 24 hrs) 05/31/22 : Sodium Cancelled, Potassium Cancelled, BUN Cancelled, Creatinine Cancelled, Glucose Cancelled, Total Bilirubin Cancelled, AST Cancelled, ALT Cancelled, Alkaline Phosphatase Cancelled 05/31/22 : WBC Cancelled, Hgb Cancelled, Hct Cancelled, Plt Count Cancelled - Diagnosis (Problem(s)) (1) Status post colonoscopy Status: Acute (2) Persistent cough Status: Acute Treatment Summary: Patient was admitted and we are going to do an x-ray. If x-ray with positive we will start antibiotics. However, patient decided to leave against medical advice. His was with him and they were arguing quite a bit. Patient left against medical advice and refused further care. I was advised again to get his x-ray prior to leaving. He refused. - Disposition Disposition: AMA-LEFT AGAINST MEDICAL ADVIC Diet: Regular Activity: Fall precautions Time Spent Managing Pts Care (In Minutes): 45
== END 2022-05-31 13:30 | disposition left against medical advice (07) ==
LOC: INTOOBSV 12:20 → 2ND 12:20
PROVIDERS: ADMIT Hospitalist; ATTEND Hospitalist
DX: J95.89 Other postprocedural complications and disorders of respiratory system, not elsewhere classified (principal); R05.3 Chronic cough; Z98.890 Other specified postprocedural states; Z53.29 Procedure and treatment not carried out because of patient's decision for other reasons; Z87.891 Personal history of nicotine dependence
CPT/HCPCS: G0379; G0378